=== PATIENT | female | born 1950 | race Caucasian/White ===

== ENCOUNTER 2016-05-15 08:50 | Inpatient (IN) | payer MEDICARE, MEDICAID ==
[2016-05-15] VITALS (7 sets, daily range): BP systolic 92–167; BP diastolic 48–74; PULSE 71–88; RESP 16–22; O2SAT 93–97
[~2016-05-15] VITALS: Ht 157.5 cm; Wt 85.8 kg
[~2016-05-15 08:50] MED LIST: ALBU8.5H2 INHALATION; AMOX-366 PO; ASPI-1148 PO; ASPI-973 PO; AZEL137S11 NASAL; BISA-67 PO; CRAN1TAB5 PO; DULO30CA50 PO; ESTR42.52 VAGINAL; FLUT16SP NS; HYDR-3740 PO; IPRA30SP8 NASAL; IPRA3AMP IH; KLO1T PO; L.AC1CAP6 PO; LIDO5JEL4 TOPICAL; LOPE2CAP PO; MOME13HF INHALATION; MONT10TA20 PO; NYST1POW23 TOP; OMEP40CA36 PO; ONDA4TAB12 PO; PHEN-773 PO; POLY17PO6 PO; POTA20TA16 PO; PREG50CA PO; SUMA100T2 PO; VANC125C3 PO
--- NOTE | 2016-05-15 09:09 | ED.REPORT ---
HPI-General Illness Date of Service May 15, 2016 ED Provider: Nicole Milian MD A 65 year old female presents to the ED complaining of abdominal pain. She has been sick for about a week, symptoms including abdominal pain, diarrhea, and vomiting. She reports that her blood pressure has been in the 160's recently, ever since she became ill.She reports that current symptoms do not feel like past C DIFF, describing that with C DIFF her diarrhea was watery and came without warning. She describes that current diarrhea has excrement and comes with warning. Nursing Notes Stated Complaint: LOW BLOOD PRESSURE Chief Complaint: General Complaint Nursing Notes Reviewed: Yes Allergies: Coded Allergies: Sulfa (Sulfonamide Antibiotics) (Verified Allergy, Severe, Stop breathing , 12/25/15) ciprofloxacin (Verified Allergy, Severe, hives, 12/25/15) Pentazocine Lactate (Verified Allergy, Intermediate, 12/25/15) morphine (Verified Allergy, Intermediate, Shortness of Breath, 12/25/15) Meraux Nut (Verified Allergy, Unknown, 12/25/15) NSAIDS (Non-Steroidal Anti-Inflamma (Verified Allergy, Unknown, GI BLEED, 12/25/15) Phenothiazines (Verified Allergy, Unknown, 12/25/15) prochlorperazine (Verified Allergy, Unknown, diarrhea, 12/25/15) propoxyphene (Verified Allergy, Unknown, 12/25/15) tree nut (Verified Allergy, Unknown, 12/25/15) Scheduled Aspirin (Aspirin) 81 Mg Tablet 81 MG PO DAILY Azelastine HCl (Azelastine HCl) 137 Mcg/0.137 Ml [place].pump 2 SPRAY NASAL BID Cetirizine HCl (Zyrtec) 10 Mg Capsule 10 MG PO BID Cranberry Conc/C/Bacill Coag (Cranberry Tablet) 1 Each Tablet 2 EACH PO QID Duloxetine (Duloxetine) 30 Mg Capsule.dr 30 MG PO DAILY Estradiol (Estrace) 42.5 Gm Cream.appl 1 APPLIC VAGINAL Q2DAY Fluticasone Propionate (Fluticasone Propionate Nasal) 16 Gm [place].susp 1 SPRAY NS HS Fosfomycin Tromethamine (Monurol) 3 Gm Packet 3 GM PO S1IDHIR Lactobacillus Combination No.4 (Probiotic) 1 Each Capsule 2 EACH PO BID Lisinopril (Lisinopril) 10 Mg Tablet 10 MG PO DAILY Metoprolol Tartrate (Metoprolol Tartrate) 25 Mg Tablet 12.5 MG PO BID Mometasone/Formoterol (Dulera 200 Mcg/5 Mcg Inhaler) 13 Gm Hfa.aer.ad 2 PUFF INHALATION BID Montelukast (Singulair) 10 Mg Tablet 10 MG PO HS Pantoprazole DR (Pantoprazole DR) 40 Mg Tablet.dr 40 MG PO BID Potassium Chloride (Potassium Chloride) 20 Meq Tab.er.prt 20 MEQ PO DAILY TAKE WITH FOOD Pregabalin (Lyrica) 50 Mg Capsule 50 MG PO BID Scheduled PRN Albuterol HFA (Proair HFA) 8.5 Gm Hfa.aer.ad 2 PUFFS INHALATION Q4H PRN PRN For Shortness of Breath Diclofenac Gel (Voltaren Gel) 100 Gm Tube 1 GM TOPICAL QID PRN PRN For Pain Ipratropium [place] (Ipratropium [place] 0.03% Nasal) 30 Ml [place] 2 SPRAY NASAL TID PRN PRN For Congestion Ipratropium/Albuterol Sulfate (Iprat-Albut 0.5-3(2.5) mg/3 mL Inhalant Soln) 3 Ml Ampul.neb 3 ML IH Q6 PRN PRN For Shortness of Breath Lidocaine HCl (Lidocaine HCl) 5 Ml Jel 1 APPLIC TOPICAL DAILY PRN PRN For Pain apply to feet Loperamide (Loperamide) 2 Mg Capsule 2 MG PO Q4H PRN PRN For Diarrhea or Loose Stool Methocarbamol (Methocarbamol) 500 Mg Tablet 1-2 EACH PO BID PRN PRN For Spasm Nystatin (Nystatin) 1 Each Powder.ea. 1 APPLIC TOP BID PRN PRN For Itching Ondansetron ODT (Ondansetron ODT) 4 Mg Tab.rapdis 8 MG PO QID PRN PRN For Nausea Sumatriptan Succinate (Sumatriptan Succinate) 100 Mg Tablet 100 MG PO BID PRN PRN Headache oxyCODONE-Acetaminophen 10-325 mg (oxyCODONE-Acetaminophen 10-325 mg) 1 Each Tablet 1 EACH PO Q4H PRN PRN For Pain General Time Seen by MD: 09:09 Chief Complaint Abdominal pain Hx Obtained From: Patient Sudden in Onset?: No Onset Occurred: 1 week ago Symptom Duration: Since onset Severity: Current: Severe Severity: Maximum: Severe Recent Healthcare: Recent doctor visit Similar Sx Previous: No Past Medical History Past Medical History Notes: Echo results from Dec 19, 2015 Interpretation Summary The left ventricle is normal in size. Left ventricular systolic function is normal without focal wall motion abnormalities. The ejection fraction is estimated to be 60-65%. LVEF has not changed since prior study. Assessment of diastolic parameters suggests possible LV grade II diastolic dysfunction, consistent with elevated filling pressures. The right ventricle is normal in size, thickness and function. Pulmonary artery pressures cannot be estimated because of the lack of a measurable TR jet velocity. Both atria are normal in size. There is moderate aortic regurgitation. There is no holodiastolic flow reversal in the descending thoracic aorta. AR has not changed since prior study. There is no other significant valvular heart disease. The aortic root is normal size. Past Medical History Hx of frequent UTIs - on chronic prophylactic abx Firbromyalgia Migraines GERD IBS Insomnia Depression ho recurrent syncope - w/extensive workup ho C Diff December,. Irritable bowel syndrome. Most recent admission was December 2015. Denies Hx of heart murmur. Takes oxycodone, 2-6 of 10mg per day for pain management. Last dose was last night. Patient is allergic to Cipro and Sulfa. Reports: COPD Past Surgical History Reports: Appendectomy, Cholecystectomy, Hysterectomy Family History noncontributory Smoking History Former Smoker Social History Other Social History: Good social support, Local resident Ambulatory Status Independent Review of Systems Full Review of Systems GI: Reports: Abdominal pain, Diarrhea, Vomiting Complete sys rev & neg: except as marked. Physical Exam ENTIRE LOWER AB IS TENDER, SUIG NTENG IN lUq. no rebound or guarding. Skn is well perfused. Vital Signs Vital Signs Date Time Temp Pulse Resp B/P Pulse Ox O2 Delivery O2 Flow Rate FiO2 05/15/16 14:30 36.7 88 18 115/74 97 Room Air 05/15/16 13:01 36.8 88 18 105/73 97 Room Air 05/15/16 09:00 36.2 72 16 92/48 94 Room Air Initial VS: Reviewed Extremities: No swelling Skin: Warm (Skin is well perfused. ), Dry, No cyanosis Neurologic: Alert, Oriented, Nonfocal General/Constitutional: Awake, Alert Patient is acutely ill, generally does not appear like she feels good. She appears dehydrated. Head / Eyes: Atraumatic Eyes are injected, red. Heart Sounds / Murmur: Positive: Murmur present... (2/6 systolic ejection murmur present. ) Abdomen: No guarding, No rebound Tenderness/Guarding/Rebound: Positive: Tender LUQ... Bowel Sounds / Distention: Positive: Distention moderate Patient's entire lower abdomen is tender, signifigantly tender in LUQ. No rebound or guarding. Interpretation & Diagnostics Interpretation & Diagnostics: PROCEDURE: US RENAL SONOGRAM IMPRESSION: 1. Bilateral renal cortical thinning. Dictated by: Cameron Reyes RRA Interpreted: Saima Smyth MD on 05/15/2016 at 16:27 Transcribed by: AUDREY on 05/15/2016 at 16:28 Approved by: Saima Smyth MD, PhD on 05/15/2016 at 16:40 Lab Results Interpretation Result Diagram: 05/16/16 0305 05/16/16 0305 Test 05/15/16 09:25 05/15/16 11:01 Erythrocyte Sedimentation Rate 16mm/hr (0-40) Lactic Acid Level 1.8mmol/L (0.4-2.0) Total Bilirubin 0.3mg/dL (0.0-1.2) Aspartate Amino Transf (AST/SGOT) 14U/L (0-50) Alanine Aminotransferase (ALT/SGPT) 17U/L (0-32) Alkaline Phosphatase 60U/L (25-165) Troponin T < 0.010ug/L (0.0-0.011) Pro-B-Type Natriuretic Peptide 125.5pg/mL (0-287) Total Protein 7.4g/dL (6.4-8.4) Albumin 3.9g/dL (3.4-5.0) Procalcitonin 0.17ng/mL (0.00-0.08) Urine Color Yellow (YELLOW) Urine Appearance Hazy (CLEAR,HAZY) Urine pH 5.0 (5.0-8.0) Urine Specific [place] 1.025 (1.003-1.035) Urine Protein Negativemg/dL (NEG,TRACE) Urine Glucose (UA) Negativemg/dL (NEGATIVE) Urine Ketones Tracemg/dL (NEGATIVE) Urine Occult Blood Negative (NEGATIVE) Urine Nitrite Negative (NEGATIVE) Urine Bilirubin Negative (NEGATIVE) Urine Urobilinogen Normalmg/dL (NORMAL) Urine Leukocyte Esterase Small (NEGATIVE) Urine RBC 0-2/hpf (0-2) Urine WBC 11-50/hpf (0-5) Urine Epithelial Cells Occasional/hpf (NONE-MOD) Urine Crystals None seen (NONE SEEN) Urine Bacteria Many/hpf (NONE-FEW) Urine Hyaline Casts Occasional/lpf (NONE) Urine Granular Casts None seen (NONE SEEN) Urine Waxy Casts None seen (NONE SEEN) Urine Red Blood Cell Casts None seen (NONE SEEN) Urine White Blood Cell Casts None seen (NONE SEEN) Urine Mucus Present (None Seen) Urine Trichomonas None seen (NONE SEEN) Urine Yeast None (NONE SEEN) Urinalysis Comment None Urine Culture Reflexed Indicated Urine Legionella pneumophilia Ag Negative (Negative) ECG Interpretation Time: 09:39 Interpreted by: ED physician Normal ECG Interpretation: Normal rate, Normal sinus rhythm, No acute ischemic changes, Normal QRS, Normal axis, Normal intervals, No change from prior ECGs, Adequate tracing X-Ray Chest Interpretation Chest Xray Interpretation: IMPRESSION: Right upper and lower lobe infiltrates suspicious for pneumonia. Recommend followup to resolution. Dictated by: Alonso Durán M.D. on 05/15/2016 at 10:42 Approved by: Alonso Durán M.D. on 05/15/2016 at 10:43 Interpretation / Wet Read by: Interpret - Radiologist CT Abd / Pelvis Interpretation IMPRESSION: 1. No CT findings to suggest pseudomembranous (C. difficile) colitis. 2. Diverticulosis. No active diverticulitis. 3. Small hiatal hernia. 4. A duodenal diverticulum. 5. Right lower lobe pneumonia. Dictated by: Alonso Durán M.D. on 05/15/2016 at 12:39 Re-Eval/Medical Decision Med Decision/Clinical Course presents with symptoms initially concerning for sepsis. Fluids started. With abd pain and recent c. diff, concern was for pseudomembranous colitis so abx were NOT started until futher clinical data was available. Once imaging studies returned to suggest a pneumonia as a source of infection consult with Dr. Johnson was obtained. Clinically she is not having any cough and no signs to suggest a pulmonary source. His recommendation for the spectrum antibiotic that would be appropriate for pneumonia and the the least risk of Clostridium difficile recurrence. Tygacil and was started in the emergency Source of Hx: Old records Time of Eval: 09:21 Re-Evaluation/Progress Note: Rechecked patient. Time of Eval: 10:43 Re-Evaluation/Progress Note: Rechecked patient, explained test results, diagnosis. Explained concern for C DIFF return and concern for infection of colon lining. Explained plan not to administer antibiotics and need for admission to hospital. Patient understands and agrees with the plan. Time of Eval: 13:22 Re-Evaluation/Progress Note: Rechecked patient, explained XRay and CT test results and explained diagnosis of right side pneumonia. Explained that the patient does not have Pseudomembranous colitis. Explained that I would still like a stool sample. The patient reports that they have not eaten since yesterday and would like to eat. Consultation #1: Referral / Consult Name: Donal Johnson MD Call Returned at: 13:34 Transit Planning Director: Agrees with eval, Agrees with plan Note: Discussed patient case with Dr. Johnson who reports that he has been treating the patient with phosphomycin for her UTI treatment. Dr. Johnson reccomends that the patient start tigecycline. Dr. Johnson will officially consult. Consultation #2: Referral / Consult Name: Donal Humphries DO Call Returned at: 13:49 Transit Planning Director: Will see patient, Agrees with eval, Agrees with plan Note: Discussed patient case with Dr. Humphries who agrees to consult on the patient. Consultation #3: Referral / Consult Name: Sarath Welsh MD Call Returned at: 14:23 Transit Planning Director: Agrees with eval, Agrees with plan, Accepts admit Note: Discussed patient case with Dr. Welsh who accepts patient admit. Counseled Regarding: Diagnosis, Lab results, Need for admission Discharge & Departure Primary Impression: Acute renal failure Additional Impressions: Right lower lobe pneumonia Abdominal pain UTI (urinary tract infection) Ruled Out: Severe sepsis Disposition: ADMITTED TO HOSPITAL Discharge Condition All VS Reviewed: Yes Condition: Improved Referrals: Arturo Bullock MD (PCP) Jeffrey Attestation Portions of this note were transcribed by Jacobo Ross. I, Dr. Milian personally performed the history, physical exam and medical decision-making; I reviewed and confirmed the accuracy of the information in the transcribed note. Signed by: Jeffrey Reddy, 05/15/2016 1325. copies to: Arturo Bullock MD; Donal Johnson MD, Shawna L MD May 15, 2016 09:09 Jacobo Ross May 15, 2016 09:12 5. Right lower lobe pneumonia. Dictated by: Alonso Durán M.D. on 05/15/2016 at 12:39 Re-Eval/Medical Decision Source of Hx: Old records Time of Eval: 09:21 Re-Evaluation/Progress Note: Rechecked patient. Time of Eval: 10:43 Re-Evaluation/Progress Note: Rechecked patient, explained test results, diagnosis. Explained concern for C DIFF return and concern for infection of colon lining. Explained plan not to administer antibiotics and need for admission to hospital. Patient understands and agrees with the plan. Time of Eval: 13:22 Re-Evaluation/Progress Note: Rechecked patient, explained XRay and CT test results and explained diagnosis of right side pneumonia. Explained that the patient does not have Pseudomembranous colitis. Explained that I would still like a stool sample. The patient reports that they have not eaten since yesterday and would like to eat. Consultation #1: Referral / Consult Name: Donal Johnson MD Call Returned at: 13:34 Transit Planning Director: Agrees with eval, Agrees with plan Note: Discussed patient case with Dr. Johnson who reports that he has been treating the patient with phosphomycin for her UTI treatment. Dr. Johnson reccomends that the patient start tigecycline. Dr. Johnson will officially consult. Consultation #2: Referral / Consult Name: Donal Humphries DO Call Returned at: 13:49 Transit Planning Director: Will see patient, Agrees with eval, Agrees with plan Note: Discussed patient case with Dr. Humphries who agrees to consult on the patient. Consultation #3: Referral / Consult Name: Sarath Welsh MD Call Returned at: 14:23 Transit Planning Director: Agrees with eval, Agrees with plan, Accepts admit Note: Discussed patient case with Dr. Welsh who accepts patient admit. Counseled Regarding: Diagnosis, Lab results, Need for admission Discharge & Departure Primary Impression: Acute renal failure Additional Impressions: Right lower lobe pneumonia Abdominal pain UTI (urinary tract infection) Ruled Out: Severe sepsis Disposition: ADMITTED TO HOSPITAL Discharge Condition All VS Reviewed: Yes Condition: Improved Referrals: Arturo Bullock MD (PCP) Jeffrey Attestation Portions of this note were transcribed by Jacobo Ross. I, Dr. Milian personally performed the history, physical exam and medical decision-making; I reviewed and confirmed the accuracy of the information in the transcribed note. Signed by: Jeffrey Reddy, 05/15/2016 1325. copies to: Arturo Bullock MD; Donal Johnson MD, Shawna L MD May 15, 2016 09:09 Jacobo Ross May 15, 2016 09:12
[2016-05-15] MEDS ORDERED: 0.9% Sodium Chloride 1,000 ML IV ONE ×2 (09:27→10:45)
[2016-05-15 09:37] LABS: BASOPHILS % (AUTO) 0.5 % (0-3); MONOCYTES % (AUTO) 7.3 % (4-12); Mean Corpuscular Hemoglobin 28.7 pg (27.0-35.0); Platelet Count 346 bil/L (150-400)
[2016-05-15 10:23] LABS: TROPONIN T < 0.010 ug/L (0.0-0.011)
--- NOTE | 2016-05-15 10:44 | DRSVH ---
PROCEDURE: X-RAY CHEST ONE VIEW, PORTABLE ([id number]) INDICATIONS: fatigue, weakness TECHNIQUE: One view of the chest was acquired. COMPARISON: [facility], CT, CT CHEST W CONTRAST, 10/24/2015, 1:03 PM. Located Within [facility] spital, CR, XR CHEST 1VW (PORTABLE), 08/07/2015, 14:19. FINDINGS: Surgical changes and devices: None. Lungs and pleura: Right upper and lower lobe infiltrate suspicious for pneumonia. No pleural effusio ns or pneumothorax. Mediastinum: Mediastinal contours appear normal. Heart size is normal. Bones and chest wall: No suspicious bony lesions. Overlying soft tissues appear unremarkable. IMPRESSION: Right upper and lower lobe infiltrates suspicious for pneumonia. Recommend followup to re solution. Dictated by: Alonso Durán M.D. on 05/15/2016 at 10:42 Approved by: Alonso Durán M.D. on 05/15/2016 at 10:43
[2016-05-15] MEDS ORDERED: HYDROmorphone 1 mg/mL Inj IVPUSH PRN (11:05)
[2016-05-15] MEDS ORDERED: HYDROmorphone 1 mg/mL Inj IVPUSH ONE (11:05)
[2016-05-15] MEDS ORDERED: Iohexol 300 mg/mL 30 mL Inj PO ONE (11:05)
[2016-05-15 11:14] LABS: APPEARANCE,URINE HAZY (CLEAR,HAZY); COLOR,URINE YELLOW (YELLOW); OCCULT BLOOD,URINE NEGATIVE (NEGATIVE)
[2016-05-15 11:18] LABS: UROBILINOGEN,URINE NORMAL (NORMAL)
[2016-05-15] MEDS ORDERED: Ondansetron 2 mg/mL 2 mL Inj IVPUSH ONE (11:25)
[2016-05-15] MEDS: Ondansetron 2 mg/mL 2 mL Inj IVPUSH PRN (11:36)
--- NOTE | 2016-05-15 12:45 | DRSVH ---
PROCEDURE: CT ABDOMEN AND PELVIS WITHOUT CONTRAST ([id number]) INDICATIONS: abdominal pain. ? c diff colitis TECHNIQUE: After the administration of oral contrast, 5 mm thick sections acquired from the diaphragms to the sy mphysis. 5 mm coronal and sagittal reformats were performed. For radiation dose reduction, the foll owing was used: automated exposure control, adjustment of mA and/or kV according to patient size. COMPARISON: [facility], CR, XR CHEST 1VW (PORTABLE), 05/15/2016, 10:19. [facility] spital, CT, CT ABD PELVIS W CON, 12/25/2015, 18:41. FINDINGS: Image quality: Excellent. ABDOMEN: Lung bases: Patchy infiltrate in the lung base suspicious for pneumonia. Heart size is normal. Smal l hiatal hernia noted. Solid organs: Liver and spleen are normal in size. Gallbladder is surgically absent. Pancreas is n ormal in size. No adrenal nodules. Both kidneys are normal in size, without hydronephrosis or nephr olithiasis. Peritoneum and bowel: There is a duodenal diverticulum arising from the posterior wall of the [place] portion of the duodenum. There are scattered colonic diverticula. Bowel loops demonstrate normal wall thickness and caliber. No free fluid or air. Nodes and vessels: No retroperitoneal or mesenteric adenopathy by size criteria. Aorta and inferior vena cava are normal in size. Miscellaneous: No ventral hernias. PELVIS: Genitourinary: Bladder wall thickness is normal. Miscellaneous: No inguinal hernias or adenopathy. Bones: No suspicious bony lesions. No vertebral body compression fractures. IMPRESSION: 1. No CT findings to suggest pseudomembranous (C. difficile) colitis. 2. Diverticulosis. No active diverticulitis. 3. Small hiatal hernia. 4. A duodenal diverticulum. 5. Right lower lobe pneumonia. Dictated by: Alonso Durán M.D. on 05/15/2016 at 12:39 Approved by: Alonso Durán M.D. on 05/15/2016 at 12:44
[2016-05-15] MEDS ORDERED: Tigecycline Inj 100 MG in 0.9% Sodium Chloride 100 ML IV ONE (13:35)
[2016-05-15] MEDS ORDERED: LISI10TA PO (13:58)
[2016-05-15] MEDS ORDERED: DICL100G8 TOPICAL (13:58)
[2016-05-15] MEDS ORDERED: OXYC-466 PO (14:03)
[2016-05-15] MEDS ORDERED: ROB500 PO (14:03)
[2016-05-15] MEDS ORDERED: FOSF3PAC PO (14:03)
[2016-05-15] MEDS ORDERED: METO25TA6 PO (14:03)
[2016-05-15] MEDS ORDERED: PANT40TA3 PO (14:05)
[2016-05-15] MEDS ORDERED: CETI10CA PO (14:09)
[2016-05-15] MEDS ORDERED: LACT1CAP67 PO (14:09)
[2016-05-15] MEDS ORDERED: Polyethylene Glycol (PEG) 17 Gm Powder PO PRN (14:40)
[2016-05-15] MEDS ORDERED: Alum-Mag Hydrox-Simeth 30 mL Suspension PO PRN (14:40)
--- NOTE | 2016-05-15 15:48 | CONS ---
[address] [address] CONSULTATION REPORT PATIENT: WILY SOLANO : 1950 MR#: [id number] ADMIT: 05/15/2016 JOB ID: [id number] DATE OF SERVICE: 05/15/2016 RENAL CONSULTATION: ATTENDING PHYSICIAN: Dr. Arturo Bullock HISTORY: The patient is a very pleasant 65-year-old white female, who was admitted to [facility] for hypotension, dehydration, and acute kidney injury. Renal consultation is being sought for further evaluation of her acute kidney injury. She states that she has had two bouts of C. difficile colitis in the past. For approximately the last five days prior to admission, she has been having progressive upper respiratory tract symptoms of nasal congestion, sore throat, otalgia, mild cough, and exacerbation of her underlying asthma. She states she has had increased wheezing, shortness of breath with minimal exertion, but no orthopnea. She states that she has used her inhaler with increasing regularity for symptomatic relief. While she denies any rash, she does state that she has diffuse arthralgias which have worsened in the last several days, new facial rash, and generalized pruritus. She does not admit to a rash in any other part of her body. She also states that she has had severe nausea, vomiting, and diarrhea which has worsened over the last several days. She states that in light of her history of recurrent C. difficile colitis this does not feel like her C. difficile colitis. She also states that she has a low-grade fever and some lightheadedness. She was seen by a physician earlier today and was found to be severely hypotensive and was advised to come to the emergency department. In the emergency department, her blood pressure was in the low 80s. However, did respond to several liters of IV fluid. Her creatinine was also found to be markedly elevated at 2.85 mg/dL. Her baseline creatinine from last December was 0.87. She denies a history of any prior renal problems. There is a history of fibromyalgia and she says that for some vague amount of time she had been taking nonsteroidals on a frequent basis but has not had any since that time. She also states she has a history of recurrent urinary tract infections and has been on multiple antibiotics for this in the past. She states that she has chronic urgency and hesitancy. She denies any CVA tenderness or recent hematuria. She does have a past medical history of hematuria and questionable proteinuria. There is no history of any renolithiasis. She also denies any history of rheumatoid arthritis, lupus or hepatitis. PAST MEDICAL HISTORY: Is significant for: 1. Recurrent urinary tract infections. 2. C. difficile colitis. 3. Hypertension, a recent diagnosis for which she takes lisinopril and metoprolol. 4. There is also a history of pre diabetes. However, she states that this is diet controlled. 5. There is also a history of asthma. 6. Hyperlipidemia. 7. At this time, she is also being worked up for a thyroid nodule. 8. Otherwise she denies a history of any prior stroke, seizure, tuberculosis, myocardial infarction, congestive heart failure, or cancer. PAST SURGICAL HISTORY: Is significant for: 1. Hysterectomy. 2. Appendectomy. 3. Tonsillectomy. 4. Cholecystectomy. ALLERGIES: She is allergic to SULFA, CIPROFLOXACIN, PENTAZOCINE, MORPHINE, NONSTEROIDALS, PHENOTHIAZINES, PROCHLORPERAZINE, PROPOXYPHENE and a variety of NUTS. SOCIAL HISTORY: She denies current use of alcohol, tobacco or illicit drugs and there is a remote history of tobacco use. She is quite sedentary and with minimal ambulation. CURRENT MEDICATIONS: At time of admission include albuterol, diclofenac gel, ipratropium, albuterol inhaler, loperamide, methocarbamol, nystatin, sumatriptan and oxycodone. FAMILY HISTORY: Noncontributory. REVIEW OF SYSTEMS: As detailed above. PHYSICAL EXAMINATION: Revealed an obese 65-year-old white female, who was alert and oriented x3, in no distress at the time of my evaluation. Her blood pressure is 105/73 with a pulse rate of 88. HEENT examination is remarkable for pale sclerae. Her mucous membranes also were dry. Of note, on her face, is a diffuse erythematous malar type rash. Neck is supple without adenopathy, thyromegaly or jugular venous distention. Lungs are clear to auscultation. Heart was regular and rhythmical with a soft systolic murmur. Her heart sounds were distant. Abdomen is somewhat distended with diminished bowel sounds. There is no tenderness, rebound, guarding, masses or hepatosplenomegaly. Extremities do not show any evidence of any clubbing, cyanosis or edema. Skin turgor is diminished and there is no evidence of any rashes. LABORATORY EXAMINATION: This morning, her white count is 15.6, hemoglobin was 14.0, hematocrit 43.9. Platelet count, red cell indices and differential were normal. Her sodium is 134, potassium 4.0, chloride 97, bicarbonate 19. BUN and creatinine were 58 and 2.85 respectively. Her liver function studies otherwise were normal. Urinalysis showed a specific gravity of 1.025, pH was 5. Tests for ketones were slightly positive. Otherwise tests for protein, glucose and occult blood were negative. She had 15-20 WBCs per high-power field with a few scattered epithelial cells. IMPRESSION: 1. Acute kidney injury secondary to dehydration. In light of her history of antibiotic use, we do need to consider a drug induced acute kidney injury; namely, acute interstitial nephritis versus a lupus reaction. 2. Dehydration. 3. Chronic interstitial nephritis secondary to recurrent urinary tract infections. 4. Hypertension with hypertensive heart disease and hypertensive nephrosclerosis. RECOMMENDATION: 1. I would like to continue her cautious hydration with normal saline for now, following her vital signs and laboratory parameters. 2. I would like to obtain an anti-histone antibody along with a full SUZIE panel. I would also like to get a urine for eosinophils. Once again, I would like to thank you for allowing me to participate in the care of this most pleasant and interesting patient. I will be following her closely with you.
--- NOTE | 2016-05-15 16:30 | NUR ---
Transfer/Isolation Pt. was transferred from the ER to [facility]. Pt. has her own walker with her that she uses when she feels weakness at times. Pt. is RA and denies CP, SOB but c/o of stomach pain that goes down her midline abdomen and radiates towards her lower right quadrant. Pt. is on contact precaution until rule out CDiff. Pt. is on tele SR 70.
--- NOTE | 2016-05-15 16:41 | DRSVH ---
PROCEDURE: US RENAL SONOGRAM INDICATIONS: linda TECHNIQUE: Real-time scanning was performed of the kidneys and bladder, with image documentation. COMPARISON: None. FINDINGS: Kidneys: Kidneys are normal in size. Right kidney measures 9.7 cm long; left kidney measures 10.1 c m long. Right renal cortical thickness is 0.7 cm; left renal cortical thickness is 1.0 cm. Renal co rtical echotexture is normal. No hydronephrosis or nephrolithiasis. No suspicious solid mass lesion s. Bladder: Pre-void bladder volume is 116 mL. Post-void residual is 0 mL. Pre-void images demonstrat e no intraluminal masses or stones. On pre-void images, neither ureteral jets are noted with color D oppler interrogation. (Of note, ureteral jets may not be detectable in up to 25% of cases due to ins ufficient differences in specific gravity between ureteral and bladder urine). Miscellaneous: No free pelvic fluid. IMPRESSION: 1. Bilateral renal cortical thinning. Dictated by: Cameron Reyes [facility] Interpreted: Saima Smyth MD on 05/15/2016 at 16:27 Transcribed by: AUDREY on 05/15/2016 at 16:28 Approved by: Saima Smyth MD, PhD on 05/15/2016 at 16:40
[2016-05-15] MEDS: HYDROmorphone 1 mg/mL Inj IVPUSH PRN (17:29)
[2016-05-15] MEDS: Heparin 5,000 Unit/mL Inj SUBQ SCH (17:29)
--- NOTE | 2016-05-15 17:42 | CONS ---
[address] [address] CONSULTATION REPORT PATIENT: WILY SOLANO : 1950 MR#: [id number] ADMIT: 05/15/2016 JOB ID: [id number] DATE OF SERVICE: 05/15/2016 REASON FOR FOLLOWUP: Diarrhea with abdominal pain x4 days. HISTORY OF THE PRESENT ILLNESS: The patient is a 65-year-old woman well known to me from prior in an outpatient visit. She has a longstanding history of recurrent UTIs as well as C. diff and has been on chronic fosfomycin prophylaxis to prevent her recurrent UTIs without increasing too much the risk for recurrent C. diff. She was in her usual state of health, free of fevers or chills or dysuria until about four or five days ago when she developed the fairly abrupt onset of nausea, vomiting, diffuse abdominal pain, and malaise. This has been associated with some noted increase in her blood pressure at home. Today, she was seeing Dr. Cade of [facility] for regularly scheduled visit for followup of her irritable bowel syndrome, and she was noted to have a somewhat low blood pressure which caused her to be sent to the ER for some fluids and evaluation. There, she was found to have a markedly elevated creatinine, and x-rays, CTs, and lab suggested the possibility of pneumonia, UTI, or recurrent severe diarrhea. Because of this, she was admitted and I was consulted by Dr. Nicole Milian from the emergency room. The patient tells me that until 4-5 days ago, she was in her usual state of health and not having any diarrhea, nausea, vomiting, dysuria, or cough. She still has really no pulmonary symptoms. She notes she gets a little short of breath with exertion, but she has no productive cough, pleuritic chest pain, or substernal chest pain. She also specifically denies dysuria, urgency, or frequency at any time in the past week and basically states that her symptoms are almost entirely GI with the nausea, vomiting, diarrhea, and abdominal pain. She notes her diarrhea is thicker and less urgent than when she has previously had C. diff, and she thinks she may have some other kind of diarrhea. She notes that one neighbor and some friends who she has been in contact with have had diarrheal or GI illnesses within the past couple weeks. PAST MEDICAL HISTORY: 1. GERD. 2. C. diff x2 in 2016. 3. Recurrent UTIs, on fosfomycin prophylaxis. 4. Irritable bowel syndrome. 5. Status post bladder sling procedure. 6. Diabetes with neuropathy. 7. COPD. 8. Fibromyalgia requiring at times opiate pain meds. ALLERGIES: 1. BACTRIM. 2. SEPTRA. SOCIAL HISTORY: The patient quit smoking in the distant past. She does not drink any significant alcohol and does not inject drugs. She lives with her daughter, , and mother in the local area and has not traveled recently. FAMILY HISTORY: Negative for TB in her first and second-degree relatives. REVIEW OF SYSTEMS: Review of systems was done. The patient has no headache, no visual complaints. No sores in the mouth. No sore throat. No stiff neck. No swollen lymph nodes. She does state she has a bit of shortness of breath with exertion which might be a little worse than normal but no shortness of breath at rest. No chest pain. No significant cough. She has had nausea, vomiting, diarrhea, and abdominal pain for the past 4-5 days. No dysuria, urgency, or frequency. No significant swelling of the joints. Remainder of the review of systems is negative. PHYSICAL EXAMINATION: Reveals an afebrile woman. Temp 36.7, pulse 88, respiratory rate 18, blood pressure 115/74. She is saturating well on room air. I saw her initially in the ER, and then she got whisked away to the [facility], and I continued the evaluation there. In both locations, she looks quite comfortable, and about like she does normally except for perhaps some mild facial erythema bilaterally. She is awake, alert, lucid, and able to give a good history. Certainly in no respiratory distress. As mentioned, she might have some flushing of the cheeks bilaterally, but otherwise her head and face appear normal. Eyes without conjunctivitis. Oral cavity without thrush or hairy leukoplakia. Neck completely supple without adenopathy. Lungs quite clear posteriorly. Cardiac tones: Regular rate and rhythm without significant murmur. Abdomen has good bowel tones but is diffusely tender in all areas without peritoneal signs per se but a fair amount of tenderness in all four quadrants. There is no suprapubic fullness. No flank tenderness is present. Extremities without significant new edema. No evidence of synovitis. No skin rashes noted. The patient is neurologically intact and able to walk and perform activities of daily living. LABORATORY STUDIES: Include white count 15.6. Normal diff, interestingly. Platelet count 346,000. Creatinine 2.85 which is dramatically above her baseline which is more like 1 basically, so 2.85 denotes a significant renal injury. Her BUN is 58, which suggests there is some dehydration component. Lactic acid 1.8. LFTs normal. Albumin 3.9. Procalcitonin 0.17. Urinalysis 11-50 white cells. Micro studies include urine pending from this admission. Blood cultures pending from this admission. Her last stool back in December was positive for C. diff. A stool multiplex PCR assay has been ordered but has not yet been collected. IMAGING: Includes a chest x-ray done today which is read as questionable right upper and lower lobe infiltrates. These are fairly subtle. In addition, the patient had a CT of the abdomen and pelvis which showed no evidence for colitis, no evidence for diverticulitis, and a fairly subtle right lower lobe infiltrate. IMPRESSION: This is a 65-year-old woman well known to me with prior history of urinary tract infections which we are attempting to suppress with fosfomycin twice a month. She also has history of underlying chronic obstructive pulmonary disease, as well as irritable bowel syndrome and Clostridium difficile twice last year. She now presents with 4-5 days of abdominal pain, nausea, vomiting, and diarrhea which began fairly abruptly. I think the differential diagnosis here involves recurrent Clostridium difficile versus infection with some other typical gastrointestinal pathogen, and certainly given her white count, we cannot exclude Salmonella, Shigella, and Yersinia as bacterial causes, but more likely probably is a viral process such as a Norovirus causing her diarrhea. The diarrhea seems to have resulted in up hypovolemia and injury to the kidneys which I suspect will rapidly reverse. Escherichia coli 157 or similar Shigella toxin producing Escherichia coli would seem unlikely here based on the overall clinical picture as well as a CBC, though remains in the range of possibility. Despite the x-ray and CT impressions, I really do not think the patient has pneumonia. She has no cough whatsoever and her lungs are clear posteriorly. I also do not think she has a urinary tract infection, even though she has moderate pyuria, as she has no symptoms whatsoever. RECOMMENDATIONS: 1. I would continue with tigecycline 50 mg every 12 until this situation is clarified. Note that we started on Tygacil in the ER because it is one agent which could provide coverage for a complicated UTI, pneumonia as was suspected on the chest x-ray, or even perhaps a complicated abdominal infection. 2. Stool for PCR should be obtained as soon as possible, as I think this is likely to provide an answer. 3. I would withhold any other broad-spectrum antibiotics at this point for fear of precipitating or worsening C. diff. 4. Will continue to follow this patient with you in the coming days. 5. Will continue to follow this patient with you. 6. Urine Legionella and pneumococcal antigen should be added to her lab studies. 7. If stool pos for C diff treat with po vanco 125 qid MTDD
[2016-05-15] MEDS: 0.9% Sodium Chloride 1,000 ML IV SCH (18:10)
--- NOTE | 2016-05-15 18:27 | PCM.HPMED ---
Subjective Date of Service May 15, 2016 Primary Provider: Admitting Physician: Primary Care Physician: Arturo Bullock MD Attending Physician: Admit Status: From the Emergency Department, Full Admit, [facility] Telemetry Chief Complaint: Acute abdominal pain History of Present Illness: Graciela Ibarra is a 65 year old female with Diabetes, Hypertension, Hyperlipidemia, recurrent UTI with recent bout of C difficile colitis who presents to [facility] emergency department complaining of abdominal pain. Located in epigastrium (7/10 intensity) with some radiation to the chest. Took Protonix but not effective in controlling pain. Associated symptoms includes nausea and vomiting inability to hold any food down. Also having persistent diarrhea. She has been sick for about a week. She reports that current symptoms do not feel like past c difficile infections, describing that with her last diarrhea was watery and came without warning. Current episode is not as severe. She was evaluated at the GI clinic and noted to have hypotension and was referred to the Emergency department. She has recurrent exposure to antibiotics due to recurrent urinary tract infections. She is well known to Dr Johnson Case discussed with Dr Nice, CT ruled out pseudomembranous colitis. She spoke to Dr Johnson who recommended admission for fluids and Tygacil IV antibiotics Review of Systems: Pertinent positives as noted in HPI. All other systems were reviewed and are negative Allergies Coded Allergies: Sulfa (Sulfonamide Antibiotics) (Verified Allergy, Severe, Stop breathing , 12/25/15) ciprofloxacin (Verified Allergy, Severe, hives, 12/25/15) Pentazocine Lactate (Verified Allergy, Intermediate, 12/25/15) morphine (Verified Allergy, Intermediate, Shortness of Breath, 12/25/15) [place] Nut (Verified Allergy, Unknown, 12/25/15) NSAIDS (Non-Steroidal Anti-Inflamma (Verified Allergy, Unknown, GI BLEED, 12/25/15) Phenothiazines (Verified Allergy, Unknown, 12/25/15) prochlorperazine (Verified Allergy, Unknown, diarrhea, 12/25/15) propoxyphene (Verified Allergy, Unknown, 12/25/15) tree nut (Verified Allergy, Unknown, 12/25/15) Home Medications From Gracilea Paredes [id number] 1950 05/15/2016 08:00 AM 02/22 [place] Plus Day take 1 capsule by oral route every 4 hours as needed Aspir-81 81 mg tablet,delayed release take 1 tablet by oral route every day azelastine 137 mcg (0.1 %) nasal spray aerosol spray 2 spray by intranasal route 2 times every day in each nostril cranberry diclofenac 1 % topical gel apply 1 gm by topical route 4 times every day to the affected area(s), max 8gm/day Dulera 200 mcg-5 mcg/actuation HFA aerosol inhaler inhale 2 puff by inhalation route 2 times every day in the morning and evening duloxetine 30 mg capsule,delayed release take 1 capsule by oral route every day Estrace 0.01% (0.1 mg/gram) vaginal cream place a pea sized amount to the cleansed and dried tissue around the urethral area every other day fluticasone 50 mcg/actuation nasal spray,suspension spray 1 spray by intranasal route every day in each nostril ipratropium bromide 0.03 % nasal spray spray 2 spray by intranasal route 2- 3 times every day in each nostril lidocaine 5 % topical ointment apply to feet topically as needed for pain daily lisinopril 10 mg tablet take 1 tablet by oral route every day Lyrica 50 mg capsule take 1 capsule by oral route 2 times every day Marijuana methocarbamol 500 mg tablet take 2 tablet by oral route 2 times every day METOPROLOL TARTRATE 25 MG TAB TAKE 1/2 TABLET BY MOUTH TWICE DAILY Monurol 3 gram oral packet take 1 sachet by oral route dissolved in 3 to 4 ounces (1/2 cup) of water every 2 weeks Nystop 100,000 unit/gram topical powder apply by topical route 2 times every day to the affected area(s) as needed ondansetron HCl 4 mg tablet take 1-2 tablet by oral route every 8 hours as needed for nausea and vomiting. oxycodone-acetaminophen 10 mg-325 mg tablet take 1 tablet by oral route every 4 hours as needed pantoprazole 40 mg tablet,delayed release take 1 tablet by oral route 2 times every day polyethylene glycol 3350 17 gram/dose oral powder take (17G) by oral route every day mixed with 8 oz. water, juice, soda, coffee or tea potassium chloride ER 20 mEq tablet,extended release take 1 tablet by oral route every day with food ProAir HFA 90 mcg/actuation aerosol inhaler inhale 2 puff by inhalation route every 4 - 6 hours as needed Singulair 10 mg tablet take 1 tablet by oral route every day in the evening Sudafed 12 Hour take 1 tablet by oral route every 4 hours as needed sumatriptan 100 mg tablet take 1 tablet by oral route after onset of migraine; may repeat after 2 hours if headache returns,not to exceed 200mg in 24hrs Zyrtec-D 5 mg-120 mg tablet,extended release take 1 tablet by oral route every 12 hours PMH Hypertension Recurrent UTI Candidiasis Prolapsed bladder - Seen by Dr. Vianey Choudhury Fibromyalgia IBS/GERD, Obesity with Hepatic Steatosis Migraines COPD Asthma Diabetes type 2, diet controlled although the diagnosis is not confirmed as per patient moderate AR, diastolic dysfunction grade 2 EF 60-65% on 12/2015 Lumbar radiculopathy Clostridium difficile colitis Hyperlipidemia Polyneuropathy Subclinical hyperthyroidism . Surgical History Hysterectomy SARA Appendectomy Cholecystectomy Tonsillectomy Family History Mother had CHF, Diabetes, Hyperlipidemia Father had Stroke Social History Hx Alcohol Use: No Hx Substance Use: No Hx Tobacco Use: Yes Hx Tobacco Use: No (QUIT 1 YEAR AGO, 46 YEARS 2 PACKS PER DAY) Smoking Status: Former Smoker Living Arrangement: with Family Exam Vital Signs Vital Sign - Last Date Time Temp Pulse Resp B/P Pulse Ox O2 Delivery O2 Flow Rate FiO2 05/15/16 13:01 36.8 88 18 105/73 97 Room Air Exam General: Alert, Oriented X3, Cooperative, No acute Distress but appears tired Eyes: PERRLA, Scleral Anicteric Mouth: Mouth Normal, Mucous Membranes Moist/[place] Neck: Supple, no Thyromegaly, trachea central. Chest & Lungs: Clear to auscultation & percussion, No adventitious breath sounds, no crackles, no wheeze Cardiovascular: Normal S1, Normal S2, No Murmurs/Rubs/Gallops, Regular Rate/ Rhythm, (No JVD, no peripheral edema) Pulses: Radial (present and equal), Dorsalis Pedi (present and equal) Abdomen: Soft, tenderness around epigastric, Non-distended, Normoactive bowel tones. Musculoskeletal: Unremarkable. Normal range of motion, no swollen or erythematous joints Extremities: No edema, no cyanosis, no clubbing. Skin: No rashes. Warm and dry, no erythematous areas Neurological: Grossly neurologically intact, Normal Speech, Sensation Intact Lymphatic: Lymph nodes Cervical and Axillary not palpable Lab and Diagnostics Labs Laboratory Tests Test 05/15/16 09:25 05/15/16 11:01 White Blood Count 15.6th/mm3 (3.8-10.1) Red Blood Count 4.88mil/mm3 (3.90-5.20) Hemoglobin 14.0g/dL (12.0-15.6) Hematocrit 43.9% (35.0-46.0) Mean Corpuscular Volume 90.0fL (81-100) Mean Corpuscular Hemoglobin 28.7pg (27.0-35.0) Mean Corpuscular Hemoglobin Concent 31.9% (32.0-37.0) Red Cell Distribution Width 15.5% (12.3-15.4) Platelet Count 346bil/L (150-400) Neutrophils (%) (Auto) 63.0% (40-74) Lymphocytes (%) (Auto) 27.7% (14-46) Monocytes (%) (Auto) 7.3% (4-12) Eosinophils (%) (Auto) 1.0% (0-5) Basophils (%) (Auto) 0.5% (0-3) Sodium Level 134mEq/L (134-144) Potassium Level 4.0mEq/L (3.5-5.2) Chloride Level 97mEq/L (97-108) Carbon Dioxide Level 19mmol/L (18-29) Blood Urea Nitrogen 58mg/dL (8-27) Creatinine 2.85mg/dL (0.57-1.00) Estimat Glomerular Filtration Rate 24mL/min (>59) Glucose Level 102mg/dL (60-99) Lactic Acid Level 1.8mmol/L (0.4-2.0) Calcium Level 10.0mg/dL (8.5-10.1) Total Bilirubin 0.3mg/dL (0.0-1.2) Aspartate Amino Transf (AST/SGOT) 14U/L (0-50) Alanine Aminotransferase (ALT/SGPT) 17U/L (0-32) Alkaline Phosphatase 60U/L (25-165) Troponin T < 0.010ug/L (0.0-0.011) Pro-B-Type Natriuretic Peptide 125.5pg/mL (0-287) Total Protein 7.4g/dL (6.4-8.4) Albumin 3.9g/dL (3.4-5.0) Procalcitonin 0.17ng/mL (0.00-0.08) Urine Color Yellow (YELLOW) Urine Appearance Hazy (CLEAR,HAZY) Urine pH 5.0 (5.0-8.0) Urine Specific [place] 1.025 (1.003-1.035) Urine Protein Negativemg/dL (NEG,TRACE) Urine Glucose (UA) Negativemg/dL (NEGATIVE) Urine Ketones Tracemg/dL (NEGATIVE) Urine Occult Blood Negative (NEGATIVE) Urine Nitrite Negative (NEGATIVE) Urine Bilirubin Negative (NEGATIVE) Urine Urobilinogen Normalmg/dL (NORMAL) Urine Leukocyte Esterase Small (NEGATIVE) Urine RBC 0-2/hpf (0-2) Urine WBC 11-50/hpf (0-5) Urine Epithelial Cells Occasional/hpf (NONE-MOD) Urine Crystals None seen (NONE SEEN) Urine Bacteria Many/hpf (NONE-FEW) Urine Hyaline Casts Occasional/lpf (NONE) Urine Granular Casts None seen (NONE SEEN) Urine Waxy Casts None seen (NONE SEEN) Urine Red Blood Cell Casts None seen (NONE SEEN) Urine White Blood Cell Casts None seen (NONE SEEN) Urine Mucus Present (None Seen) Urine Trichomonas None seen (NONE SEEN) Urine Yeast None (NONE SEEN) Urinalysis Comment None Urine Culture Reflexed Indicated Microbiology 05/15/16 Blood Culture, Received Pending 05/15/16 Urine Culture, Received Pending Result Diagram: 05/15/16 0925 05/15/16 0925 X-Rays, CTs and MRIs CT ABDOMEN AND PELVIS WITHOUT CONTRAST 05/15 IMPRESSION: 1. No CT findings to suggest pseudomembranous (C. difficile) colitis. 2. Diverticulosis. No active diverticulitis. 3. Small hiatal hernia. 4. A duodenal diverticulum. 5. Right lower lobe pneumonia. Dictated by: Alonso Durán M.D. on 05/15/2016 at 12:39 Approved by: Alonso Durán M.D. on 05/15/2016 at 12:44 X-RAY CHEST ONE VIEW, PORTABLE 05/15 IMPRESSION: Right upper and lower lobe infiltrates suspicious for pneumonia. Recommend followup to resolution. Dictated by: Alonso Durán M.D. on 05/15/2016 at 10:42 Approved by: Alonso Durán M.D. on 05/15/2016 at 10:43 Assessment & Plan Graciela Ibarra is a 65 year old female with Diabetes, Hypertension, Hyperlipidemia, recurrent UTI with recent bout of C difficile colitis who presents to [facility] emergency department complaining of abdominal pain 1. Nausea and vomiting with epigastric pain. Present on admission Etiology is unclear but Peptic ulcer disease suspected. NO evidence of pseudomembranous colitis. Also could be related to viral gastroenteritis - continue Protonix daily - Dr Cade recommend upper endoscopy if pain persists 2. Acute with recurrent Urinary tract infections. Present on admission - continuing Tigacil as per Dr Johnson recommendations 3. Acute Kidney Injury. Present on admission - suspect pre renal azotemia due to hypovolemia - Nephrology consulted 4 Possible Community acquired pneumonia. Present on admission With vomiting, aspiration could be possible. Patient denies any coughing but the infiltrates was seen on Chest CT - should be covered with Tygacil recommended - Blood cultures x 2 5 Persistent diarrhea. Present on admission Suspect Viral gastroenteritis but has risk factors for recurrent C difficile colitis - checking for C difficile and viral PCR 6 Acute Hypotension with Hypertension. Present on admission Likely due to volume loss from diarrhea as well as vomiting - holding Lisinopril 10 mg daily and Metoprolol 12.5 mg bid 7 Chronic COPD/Asthma No signs of acute exacerbation - continuing Dulera, Ipratropium and Albuterol PRN - continuing Singular daily 8 Chronic pain syndrome with narcotic dependence - continue outpatient pain regimen - Acetaminophen as needed for mild pain/fever/headache - Bowel regimen as needed - Antiemetic as needed Patient admitted under inpatient status with expected length of stay > 2 midnights for severity of present symptoms, complexities of treatment plan and risk for adverse event . Resuscitation Status: CPR: Attempt Resuscitation Sarath Welsh MD May 15, 2016 14:51
[2016-05-15] MEDS: Tigecycline Inj 50 MG in 0.9% Sodium Chloride 100 ML IV SCH (20:40)
[2016-05-16] VITALS (8 sets, daily range): BP systolic 146–189; BP diastolic 54–77; PULSE 70–76; RESP 16–20; O2SAT 94–98
[2016-05-16] MEDS: HYDROmorphone 1 mg/mL Inj IVPUSH PRN ×3 (00:06→19:48)
[2016-05-16] MEDS: Heparin 5,000 Unit/mL Inj SUBQ SCH ×3 (00:21→17:22)
[2016-05-16 03:23] LABS: BASOPHILS % (AUTO) 0.5 % (0-3); EOSINOPHILS % (AUTO) 1.6 % (0-5); MONOCYTES % (AUTO) 11.3 % (4-12); Mean Corpuscular Hemoglobin 28.5 pg (27.0-35.0); Mean Corpuscular Volume 90.2 fL (81-100); NEUTROPHILS % (AUTO) 43.9 % (40-74); Platelet Count 282 bil/L (150-400)
[2016-05-16] MEDS: 0.9% Sodium Chloride 1,000 ML IV SCH ×3 (04:28→17:19)
[2016-05-16] MEDS ORDERED: Albuterol 2.5 mg/3 mL Inhalation Solution NEB PRN ×2 (04:30→16:00)
[2016-05-16] MEDS: Ondansetron 2 mg/mL 2 mL Inj IVPUSH PRN ×3 (04:33→19:52)
[2016-05-16] MEDS ORDERED: Tigecycline Inj 50 MG in 0.9% Sodium Chloride 100 ML IV SCH (05:00)
--- NOTE | 2016-05-16 06:25 | NUR ---
GI/Pain/Respiratory Pt did not have a BM this shift so no stool sample sent, will pass on to day RN. Pt did have c/o some nausea w/out emesis this morning after getting up to use the BSC, given Zofran w/ good effect. Pt c/o chronic lower back pain 8-10/25, relief w/ PRN Dilaudid. Pt also continues to c/o 09/24 abdominal pain, at beginning of shift stating this was around RUQ but later saying it was generalized mid/lower left and right abdomen described by pt as similar to having really bad flatus. PRN Dilaudid/Tylenol given for both abdominal and back pain w/ good effect as pt appeared to sleep comfortably between care interventions throughout most of the night. Pt communicated that she regularly takes inhalers at home and voiced that she would like neb treatments available as she does get SOB w/ exertion and does notably have increased wheezing. Sats maintain throughout in mid 90s. paged and ordered Q2 hour PRN neb treatments. Pt is aware these are available as needed and has not required one yet.
[2016-05-16] MEDS: Tigecycline Inj 50 MG in 0.9% Sodium Chloride 100 ML IV SCH ×2 (09:16→20:02)
--- NOTE | 2016-05-16 10:44 | NUR ---
pain/temperature pt c/o generalized aching and chills, flushing noted. oral temperature elevated. pt bundled up in bedding. PRN tylenol given with follow up temperature 98.8. PRN dilaudid given for further generalized pain. will continue to monitor.
--- NOTE | 2016-05-16 12:38 | PCM.PNMED ---
Subjective Date of Service May 16, 2016 Subjective Some wheezing and dyspnea. A lot of abdomen pain, nausea, and soft stools. No fevers of chills. Exam Vital Signs Vital Sign - Last Date Time Temp Pulse Resp B/P Pulse Ox O2 Delivery O2 Flow Rate FiO2 05/16/16 12:26 37.0 70 18 182/75 98 Room Air 05/15/16 23:53 1.50 Intake and Output 05/15/16 05/15/16 05/16/16 Cumulative From/Thru 15:00 23:00 07:00 05/15/16 09:00 - 05/16/16 06:48 Intake Total 1000 ml 1040 ml 2040 ml Output Total 1050 ml 1050 ml Balance 1000 ml -10 ml 990 ml Intake Oral 1040 ml 1040 ml IV Total 1000 ml 1000 ml Output Urine Total 1050 ml 1050 ml Exam No distress, a little confused. Anicteric sclera Lungs with decreased BS, expiratory wheezing Heart regular Abdomen soft, but tender diffusely, normal BT's. No edema No skin rash IVs and Medications Medications Reviewed: Medications were reviewed in detail Lab and Diagnostics Result Diagram: 05/16/16 0305 05/16/16 0305 X-Rays, CTs and MRIs CT ABDOMEN AND PELVIS WITHOUT CONTRAST 05/15 IMPRESSION: 1. No CT findings to suggest pseudomembranous (C. difficile) colitis. 2. Diverticulosis. No active diverticulitis. 3. Small hiatal hernia. 4. A duodenal diverticulum. 5. Right lower lobe pneumonia. Dictated by: Alonso Durán M.D. on 05/15/2016 at 12:39 Approved by: Alonso Durán M.D. on 05/15/2016 at 12:44 X-RAY CHEST ONE VIEW, PORTABLE 05/15 IMPRESSION: Right upper and lower lobe infiltrates suspicious for pneumonia. Recommend followup to resolution. Dictated by: Alonso Durán M.D. on 05/15/2016 at 10:42 Approved by: Alonso Durán M.D. on 05/15/2016 at 10:43 Assessment & Plan Graciela Ibarra is a 65 year old female with Diabetes, Hypertension, Hyperlipidemia, recurrent UTI with recent bout of C difficile colitis who presents to [facility] emergency department complaining of abdominal pain 1. CDT colitis and diarrhea (PCR positive). POA. Continue Tygacil 2. Acute with recurrent Urinary tract infections. Present on admission - continuing Tigacil as per Dr Johnson recommendations, await Urine culture ( 100K GNR). 3. Acute Kidney Injury. Present on admission. Improving. - suspect pre renal azotemia due to hypovolemia - Nephrology consulted, this is stable. Continue saline. 4 Possible Community acquired pneumonia. Present on admission With vomiting, aspiration could be possible. Patient denies any coughing but the infiltrates was seen on Chest CT - should be covered with Tygacil recommended - Blood cultures x 2 5 Acute Hypotension with Hypertension. Present on admission Improved with fluid and hold BP medications 7 Chronic COPD/Asthma No signs of acute exacerbation - continuing Dulera, Ipratropium and Albuterol PRN - continuing Singular daily Add Duonebs PRN. 8 Chronic pain syndrome with narcotic dependence - continue outpatient pain regimen - Acetaminophen as needed for mild pain/fever/headache - Bowel regimen as needed - Antiemetic as needed Patient admitted under inpatient status with expected length of stay > 2 midnights for severity of present symptoms, complexities of treatment plan and risk for adverse event . Pain Evaluation: Pain not Controlled Resuscitation Status: CPR: Attempt Resuscitation Time spent 30 min rKis Donohue MD May 16, 2016 12:38
--- NOTE | 2016-05-16 14:02 | PCM.PNNEPH ---
Subjective Date of Service May 16, 2016 Subjective The patient complains of difficulty breathing this morning. She reported that she has not received any nebulizer treatment since she is admitted. She reports no loose stool this morning. She has abdominal discomfort. Stool C. difficile toxin came back positive. Kidney function continued to improve after IV fluid resuscitation. Blood pressure is on the high side. She reports having upper extremity swelling. Exam Vital Signs Vital Sign - Last Date Time Temp Pulse Resp B/P Pulse Ox O2 Delivery O2 Flow Rate FiO2 05/16/16 12:26 37.0 70 18 182/75 98 Room Air 05/15/16 23:53 1.50 Intake and Output 05/15/16 05/15/16 05/16/16 Cumulative From/Thru 15:00 23:00 07:00 05/15/16 09:00 - 05/16/16 06:48 Intake Total 1000 ml 1040 ml 2040 ml Output Total 1050 ml 1050 ml Balance 1000 ml -10 ml 990 ml Intake Oral 1040 ml 1040 ml IV Total 1000 ml 1000 ml Output Urine Total 1050 ml 1050 ml Exam GENERAL: The patient in no apparent distress, and alert and oriented x3. HEENT: Head is normocephalic and atraumatic. Extraocular muscles are intact. NECK: Supple, no elevation of JVD, No carotid bruits. No lymphadenopathy or thyromegaly. LUNGS: Decreased air entry bilaterally, expiratory wheezing noted. HEART: Normal S1/S2, Regular rate and rhythm, no murmurs, rubs or gallops. ABDOMEN: Soft, diffuse tenderness mainly on the lower abdomen and positive rebound . Positive bowel sounds. No hepatosplenomegaly was noted. EXTREMITIES: Without any cyanosis, clubbing, rash, lesions or edema. Lab and Diagnostics Result Diagram: 05/16/16 0305 05/16/16 0305 X-Rays, CTs and MRIs CT ABDOMEN AND PELVIS WITHOUT CONTRAST 05/15 IMPRESSION: 1. No CT findings to suggest pseudomembranous (C. difficile) colitis. 2. Diverticulosis. No active diverticulitis. 3. Small hiatal hernia. 4. A duodenal diverticulum. 5. Right lower lobe pneumonia. Dictated by: Alonso Durán M.D. on 05/15/2016 at 12:39 Approved by: Alonso Durán M.D. on 05/15/2016 at 12:44 X-RAY CHEST ONE VIEW, PORTABLE 05/15 IMPRESSION: Right upper and lower lobe infiltrates suspicious for pneumonia. Recommend followup to resolution. Dictated by: Alonso Durán M.D. on 05/15/2016 at 10:42 Approved by: Alonso Durán M.D. on 05/15/2016 at 10:43 Plan Impression 1. Acute kidney injury secondary to prerenal azotemia 2. Sepsis 3. Recurrent C. difficile infection 4. Gram-negative sandra UTI 5. Hypotension secondary to intravascular volume depletion. 6. Chronic asthma/COPD. Plan: Decrease normal saline to 60 mL per hour Antibiotic as per infectious disease specialist Avoid nephrotoxins, repeat BMP in the morning Destin Jefferson MD May 16, 2016 14:02
--- NOTE | 2016-05-16 15:47 | NUR ---
Social Work: Initial Assessment Data and Assessment: See Initial Assessment. EMR reviewed. Pt is a 70 y/o female admitted for AFIB w/ RVR per H&P. Pt's PCP is Dr Bullock, pt's insurance is Medicare with [employer] supp. [employer] met with patient and patient's spouse, Tono Ibarra [phone], to complete initial assessment, discharge planning and SW role explained. Pt lives with her in a single story home with three steps to enter where she uses a walker at baseline. Pt reports that she does not have a DPOA, and SW provided her with the information. Pt does not drive. Pt states has a history with [facility] and has caregivers from [facility] who come into her home 3 times a week for 2 hours at a time. 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 Patient has been to [facility] in the past. [employer] will continue to follow. Plan: Pt will discharge home via POV. [employer] will R/O need for HH. [employer] will continue to follow. will continue to follow. Vida Blackmon LMSW, [facility] Addendum: 05/16/16 at 1559 by VIDA SWEENEY Amended: Links added.
--- NOTE | 2016-05-16 19:12 | NUR ---
Migraine pt c/o severe migraine headache with nausea. prn zofran and sumatriptan given. pt states zofran effective for nausea, awaiting results of sumatriptan.
[2016-05-16] MEDS: Pantoprazole 40 mg ER24 Tablet PO SCH (20:04)
[2016-05-16] MEDS: oxyCODONE-Acetamin 10-325 mg Tablet PO PRN (22:26)
[2016-05-16] MEDS: Ondansetron 8 mg ODT Tablet PO PRN (23:25)
[2016-05-17] VITALS (13 sets, daily range): BP systolic 150–197; BP diastolic 55–75; PULSE 60–69; RESP 14–22; O2SAT 94–97
[2016-05-17] MEDS: Heparin 5,000 Unit/mL Inj SUBQ SCH ×3 (00:48→17:10)
[2016-05-17] MEDS: HYDROmorphone 1 mg/mL Inj IVPUSH PRN ×2 (00:48→18:47)
[2016-05-17 03:16] LABS: BASOPHILS % (AUTO) 0.2 % (0-3); EOSINOPHILS % (AUTO) 0.6 % (0-5); MONOCYTES % (AUTO) 9.8 % (4-12); Mean Corpuscular Hemoglobin 27.9 pg (27.0-35.0); Mean Corpuscular Volume 87.7 fL (81-100); NEUTROPHILS % (AUTO) 56.7 % (40-74); Platelet Count 265 bil/L (150-400)
[2016-05-17 03:36] LABS: Magnesium 1.5 mg/dL (1.6-2.6)
[2016-05-17] MEDS: Ondansetron 8 mg ODT Tablet PO PRN (06:03)
[2016-05-17] MEDS: oxyCODONE-Acetamin 10-325 mg Tablet PO PRN (06:06)
--- NOTE | 2016-05-17 07:37 | NUR ---
HTN/Nausea/Pain During night SBP mostly 170s-180s varying between times when pt was in pain and nauseous/dry heaving. MD notified in case intervention wanted, no new orders given. Pt having intermittent nausea at beginning of shift which was helped w/ IV Zofran. However, some time after getting percocet pt was dry heaving, no emesis noted this shift. Pt given dissolving Zofran tablet with good effect as pt stated nausea was gone when she wanted a neb treatment, which she tolerated well. Pt given Percocet and Dilaudid for breakthrough pain. Pain was usually 8/10 in lower back and generalized abdomen. Pt reported good effect with these medications and was able to sleep for a good portion of the night around mid shift, but once awake the pain was back up to 8/10. Pt given education on pain management in attempt to prevent pain from increasing.
[2016-05-17] MEDS ORDERED: Magnesium Sulf 4 Gm/100 mL H2O 4 GM in IV Premix 1 EACH IV ONE (07:55)
[2016-05-17] MEDS: Tigecycline Inj 50 MG in 0.9% Sodium Chloride 100 ML IV SCH ×2 (09:34→20:30)
[2016-05-17] MEDS: DULoxetine 30 mg DR Capsule PO SCH (09:35)
[2016-05-17] MEDS: Pantoprazole 40 mg ER24 Tablet PO SCH ×2 (09:35→20:28)
[2016-05-17] MEDS: Ondansetron 2 mg/mL 2 mL Inj IVPUSH PRN (11:54)
--- NOTE | 2016-05-17 12:20 | PCM.PNMED ---
Subjective Date of Service May 17, 2016 Subjective She has ongoing diarrhea as well as some nausea with emesis times 3 this AM. Some abdomen pain. No cough or dyspnea. No dysurua. No fevers or chills. Exam Vital Signs Vital Sign - Last Date Time Temp Pulse Resp B/P Pulse Ox O2 Delivery O2 Flow Rate FiO2 05/17/16 12:03 37.0 64 16 95 Room Air 05/15/16 23:53 1.50 Intake and Output 05/16/16 05/16/16 05/17/16 Cumulative From/Thru 15:00 23:00 07:00 05/15/16 09:00 - 05/17/16 06:43 Intake Total 2025 ml 1410 ml 200 ml 5675 ml Output Total 952 ml 1102 ml 3104 ml Balance 2025 ml 458 ml -902 ml 2571 ml Intake Oral 1280 ml 200 ml 2520 ml IV Total 2025 ml 130 ml 3155 ml Output Urine Total 950 ml 1100 ml 3100 ml Urine/Stool Mix 2 ml 2 ml 4 ml # Bowel Movements 3 3 Exam No distress, alert and oriented. Anicteric sclera Lungs clear Heart regular, without murmur Abdomen slightly tender, no rebound. No edema No rash. IVs and Medications Medications Reviewed: Medications were reviewed in detail Lab and Diagnostics Result Diagram: 05/17/16 0310 05/17/16 031 X-Rays, CTs and MRIs CT ABDOMEN AND PELVIS WITHOUT CONTRAST 05/15 IMPRESSION: 1. No CT findings to suggest pseudomembranous (C. difficile) colitis. 2. Diverticulosis. No active diverticulitis. 3. Small hiatal hernia. 4. A duodenal diverticulum. 5. Right lower lobe pneumonia. Dictated by: Alonso Durán M.D. on 05/15/2016 at 12:39 Approved by: Alonso Durán M.D. on 05/15/2016 at 12:44 X-RAY CHEST ONE VIEW, PORTABLE 05/15 IMPRESSION: Right upper and lower lobe infiltrates suspicious for pneumonia. Recommend followup to resolution. Dictated by: Alonso Durán M.D. on 05/15/2016 at 10:42 Approved by: Alonso Durán M.D. on 05/15/2016 at 10:43 Assessment & Plan Graciela Ibarra is a 65 year old female with Diabetes, Hypertension, Hyperlipidemia, recurrent UTI with recent bout of C difficile colitis who presents to [facility] emergency department complaining of abdominal pain 1. CDT colitis and diarrhea (PCR positive). POA. Continue Tygacil . Will add PO vanco today. 2. Acute with recurrent Urinary tract infections. Present on admission. Klebsiella pansensitive except ampicillin. - continuing Tigacil as per Dr Johnson recommendations, await Urine culture ( 100K GNR). 3. Acute Kidney Injury. Present on admission. Improving. - suspect pre renal azotemia due to hypovolemia - Nephrology consulted, this is stable. Continue half normal saline. 4 Possible Community acquired pneumonia. Present on admission With vomiting, aspiration could be possible. Patient denies any coughing but the infiltrates was seen on Chest CT - should be covered with Tygacil recommended - Blood cultures x 2 (negative). No changes today. 5 Acute Hypotension. Present on admission Improved with fluid and hold BP medications 7 Chronic COPD/Asthma No signs of acute exacerbation - continuing Dulera, Ipratropium and Albuterol PRN - continuing Singular daily Add Duonebs PRN. 8 Chronic pain syndrome with narcotic dependence - continue outpatient pain regimen - Acetaminophen as needed for mild pain/fever/headache - Bowel regimen as needed - Antiemetic as needed Patient admitted under inpatient status with expected length of stay > 2 midnights for severity of present symptoms, complexities of treatment plan and risk for adverse event . Pain Evaluation: Adequate Pain Control Resuscitation Status: CPR: Attempt Resuscitation Time spent 30 min Kris Donohue MD May 17, 2016 12:19
--- NOTE | 2016-05-17 12:49 | PCM.PNNEPH ---
Subjective Date of Service May 17, 2016 Subjective Kidney function continues to improve. She remains having watery diarrhea and nausea vomiting. Exam Vital Signs Vital Sign - Last Date Time Temp Pulse Resp B/P Pulse Ox O2 Delivery O2 Flow Rate FiO2 05/17/16 12:15 22 197/72 97 Nasal Cannula 2.00 05/17/16 12:03 37.0 64 Intake and Output 05/16/16 05/16/16 05/17/16 Cumulative From/Thru 15:00 23:00 07:00 05/15/16 09:00 - 05/17/16 06:43 Intake Total 2025 ml 1410 ml 200 ml 5675 ml Output Total 952 ml 1102 ml 3104 ml Balance 2025 ml 458 ml -902 ml 2571 ml Intake Oral 1280 ml 200 ml 2520 ml IV Total 2025 ml 130 ml 3155 ml Output Urine Total 950 ml 1100 ml 3100 ml Urine/Stool Mix 2 ml 2 ml 4 ml # Bowel Movements 3 3 Exam GENERAL: The patient in no apparent distress, and alert and oriented x3. HEENT: Head is normocephalic and atraumatic. Extraocular muscles are intact. NECK: Supple, no elevation of JVD, No carotid bruits. No lymphadenopathy or thyromegaly. LUNGS: Decreased air entry bilaterally, no wheezing or rhonchi HEART: Normal S1/S2, Regular rate and rhythm, no murmurs, rubs or gallops. ABDOMEN: Soft, diffuse tenderness mainly on the lower abdomen, no rebound . Positive bowel sounds. No hepatosplenomegaly was noted. EXTREMITIES: Without any cyanosis, clubbing, rash, lesions or edema. Lab and Diagnostics Result Diagram: 05/17/1630905/17/16309 X-Rays, CTs and MRIs CT ABDOMEN AND PELVIS WITHOUT CONTRAST 05/15 IMPRESSION: 1. No CT findings to suggest pseudomembranous (C. difficile) colitis. 2. Diverticulosis. No active diverticulitis. 3. Small hiatal hernia. 4. A duodenal diverticulum. 5. Right lower lobe pneumonia. Dictated by: Alonso Durán M.D. on 05/15/2016 at 12:39 Approved by: Alonso Durán M.D. on 05/15/2016 at 12:44 X-RAY CHEST ONE VIEW, PORTABLE 05/15 IMPRESSION: Right upper and lower lobe infiltrates suspicious for pneumonia. Recommend followup to resolution. Dictated by: Alonso Durán M.D. on 05/15/2016 at 10:42 Approved by: Alonso Durán M.D. on 05/15/2016 at 10:43 Plan Impression 1. Acute kidney injury secondary to prerenal azotemia 2. Sepsis 3. Recurrent C. difficile infection 4. Klebsiella UTI 5. Right lower lobe pneumonia5. 6. Hypotension secondary to intravascular volume depletion. 7. Chronic asthma/COPD. 8. Hypomagnesemia. Plan: Start magnesium sulfate 4 g IV piggyback 1. Switch to normal saline to half normal saline 60 mL per hour. Repeat BMP in the morning Destin eJfferson MD May 17, 2016 12:49
[2016-05-17] MEDS: MetoCLOpramide 5 mg/mL 2 mL Inj IVPUSH PRN ×2 (13:27→19:52)
--- NOTE | 2016-05-17 14:41 | NUR ---
Nausea&vomiting/unresponsive episode/HTN pt continues to have intractable nausea and emesis. emesis yellow in color. pt noting abdominal pain/tenderness and bowel movements yellow brown mucusy. MD informed of ineffectiveness of zofran, new orders received for reglan. will continue to follow up. Pt had episode of brief unresponsiveness while on bsc and having dry heaves. pt face became purple and pt slumped. pt moved back to bed and awoke, asking "what happened?, I didnt wipe". quality assurance monitor body noted no tele changes. SBP 197/86. MD informed of situation. pt encouraged to call when gettting out of bed. Continue to monitor. Discussed pt's HTN with md, plan to continue monitoring at this time.
--- NOTE | 2016-05-17 15:14 | PROG NOTE ---
[address] [address] PROGRESS NOTE PATIENT: WILY SOLANO : 1950 MR#: [id number] ADMIT: 05/15/2016 JOB ID: [id number] DATE: 05/17/2016 REASON FOR FOLLOWUP: C. difficile colitis, recurrent. Over the last 36 hours since I have last seen the patient, she has had rather severe and worsening nausea and sometimes vomiting. Despite that, she has been able to keep down some oral fluids and meds and she has noted that her abdominal cramps and pain with diarrhea have actually lessened somewhat. She has complained of subjective fever and chills. No cough or shortness of breath. PHYSICAL EXAMINATION: Reveals an afebrile woman. Temp 36.8, pulse 63, respiratory rate 18, blood pressure 164/66. She is saturating well on room air. The patient appears to be in mild distress due to her ongoing GI complaints, but she is awake and oriented. No herpetic lesions on the lips. Lungs quite clear posteriorly. Cardiac tones without murmur. Abdomen with diffuse tenderness, especially in the left upper quadrant. No skin rashes noted. LABORATORIES: Include a white count which has normalized to 8500, completely normal diff. Creatinine has dropped all the way from 2.85 on admission two days down to 0.88. Bicarb has normalized to 21. Urinalysis on admission had 11-50 white cells and grew Klebsiella pneumoniae, which was fairly susceptible, including doxycycline, which would include tigecycline. Other micro results of interest include the stool PCR positive for C. diff. Negative blood cultures. Negative urine eosinophil screen. IMAGING: Includes abdominal pelvic CT scan which shows no findings for C. diff and a possible right lower lobe infiltrate. IMPRESSION: This patient has now suffered yet another recurrence of her Clostridium difficile colitis and will likely require stool transplant. When she first came in, it was unclear if she had pneumonia, recurrent C. difficile, other cause of diarrhea, urinary tract infection, or some combination of these processes. I think it is becoming clear that the main issue here is the C. difficile. The patient says she never has dysuria or flank pain with her so-called urinary tract infections, and I wonder if what we are evaluating and treating here is really colonization with Klebsiella pneumoniae. Certainly, the inadvertent giving of antibiotics to someone with a history of recurrent and frequent C. difficile exacerbations such as this can be very deleterious. As to whether or not she has pneumonia, I am inclined to think not, as she has no cough and her white count has rapidly normalized. I think the main thing that is going on here is a recurrent episode of C. difficile. The nausea and vomiting that has been worsening since admission is almost certainly due to tigecycline, as about 30% of people do not tolerate this antibiotic. The reason tigecycline was chosen is a possible empiric therapy for pneumonia or urinary tract infection in this case was because it does not make C. difficile worse and may sometimes make it better. RECOMMENDATIONS: 1. Will discontinue tigecycline. 2. Will continue with the vancomycin that was started this morning by the hospitalist and this is oral vancomycin. 3. No additional antibiotics at this time. 4. As the patient continues to improve with respect to her overall function and renal failure, she can be discharged on the oral vancomycin with a tapering dose, but I think this is a patient who will need referral to one of the GI centers in [place] which provide stool transplant. This was discussed with the patient.
[2016-05-17] MEDS: Vancomycin 250 mg Oral Capsule PO SCH ×2 (15:20→20:28)
[2016-05-18] MEDS: Heparin 5,000 Unit/mL Inj SUBQ SCH ×4 (01:32→23:56)
[2016-05-18] MEDS: Vancomycin 250 mg Oral Capsule PO SCH ×4 (01:36→20:32)
[2016-05-18] MEDS: HYDROmorphone 1 mg/mL Inj IVPUSH PRN ×4 (01:49→20:52)
[2016-05-18] MEDS: MetoCLOpramide 5 mg/mL 2 mL Inj IVPUSH PRN ×4 (01:54→20:51)
[2016-05-18 03:35] VITALS: BP 147/57; PULSE 63; RESP 16; O2SAT 94
--- NOTE | 2016-05-18 07:53 | NUR ---
GI/Pain Pt had no diarrhea last night, no emesis noted. Pt given Reglan x2 for some nausea, pt reported good effect w/ this med. Pt also given PRN Dilaudid for 8/10 back/abdominal pain w/ good effect, pt hesitant to take percocet d/t intermittent nausea. Pt refused Tigecycline, per note this was to be DC'd. Pt taking ordered Vanco Q6. Overall pt slept much more than previous night and appeared comfortable w/ less GI symptoms as night progressed.
[2016-05-18 08:18] VITALS: BP 159/85; PULSE 65; RESP 16; O2SAT 96
[2016-05-18] MEDS: Pantoprazole 40 mg ER24 Tablet PO SCH ×2 (08:35→20:32)
[2016-05-18] MEDS: DULoxetine 30 mg DR Capsule PO SCH (08:35)
[2016-05-18 08:51] VITALS: PULSE 62
--- NOTE | 2016-05-18 11:11 | PCM.PNNEPH ---
Subjective Date of Service May 18, 2016 Subjective (+) watery diarrhea, nausea, vomiting. no cough, no dysuria. no fever/chills. Exam Vital Signs Vital Sign - Last Date Time Temp Pulse Resp B/P Pulse Ox O2 Delivery O2 Flow Rate FiO2 05/18/16 08:51 62 05/18/16 08:18 36.6 16 159/85 96 Room Air 05/17/16 15:52 2.00 Intake and Output 05/17/16 05/17/16 05/18/16 Cumulative From/Thru 15:00 23:00 07:00 05/15/16 09:00 - 05/18/16 05:51 Intake Total 835 ml 794 ml 100 ml 8404 ml Output Total 1013 ml 650 ml 4767 ml Balance 835 ml -219 ml -550 ml 3637 ml Intake Oral 200 ml 100 ml 2820 ml IV Total 835 ml 594 ml 5584 ml Output Urine Total 950 ml 650 ml 4700 ml Urine/Stool Mix 3 ml 7 ml Emesis 60 ml 60 ml # Bowel Movements 3 Exam GENERAL: The patient in no apparent distress, and alert and oriented x3. HEENT: Head is normocephalic and atraumatic. Extraocular muscles are intact. NECK: Supple, no elevation of JVD, No carotid bruits. No lymphadenopathy or thyromegaly. LUNGS: Decreased air entry bilaterally, no wheezing or rhonchi HEART: Normal S1/S2, Regular rate and rhythm, no murmurs, rubs or gallops. ABDOMEN: Soft, diffuse tenderness mainly on the lower abdomen, no rebound . Positive bowel sounds. No hepatosplenomegaly was noted. EXTREMITIES: Without any cyanosis, clubbing, rash, lesions or edema. Lab and Diagnostics Result Diagram: 05/17/1630905/17/16309 X-Rays, CTs and MRIs CT ABDOMEN AND PELVIS WITHOUT CONTRAST 05/15 IMPRESSION: 1. No CT findings to suggest pseudomembranous (C. difficile) colitis. 2. Diverticulosis. No active diverticulitis. 3. Small hiatal hernia. 4. A duodenal diverticulum. 5. Right lower lobe pneumonia. Dictated by: Alonso Durán M.D. on 05/15/2016 at 12:39 Approved by: Alonso Durán M.D. on 05/15/2016 at 12:44 X-RAY CHEST ONE VIEW, PORTABLE 05/15 IMPRESSION: Right upper and lower lobe infiltrates suspicious for pneumonia. Recommend followup to resolution. Dictated by: Alonso Durán M.D. on 05/15/2016 at 10:42 Approved by: Alonso Durán M.D. on 05/15/2016 at 10:43 Plan Impression 1. Acute kidney injury secondary to prerenal azotemia, resolved. 2. Recurrent C. difficile infection 3. Asymptomatic Klebsiella UTI 4. Hypertension. 5. Chronic asthma/COPD. 6. Hypomagnesemia. Plan: continue 0.45 NS 60 ml/hr resume metoprolol XL 25 mg daily. BMP and Mg in am. Destin Jefferson MD May 18, 2016 11:11
--- NOTE | 2016-05-18 12:53 | PCM.PNMED ---
Subjective Date of Service May 18, 2016 Subjective Nausea is much better, No emesis. No chest or abdomen pain. One fever last night. No dysuria, much less diarrhea. Exam Vital Signs Vital Sign - Last Date Time Temp Pulse Resp B/P Pulse Ox O2 Delivery O2 Flow Rate FiO2 05/18/16 08:51 62 05/18/16 08:18 36.6 16 159/85 96 Room Air 05/17/16 15:52 2.00 Intake and Output 05/17/16 05/17/16 05/18/16 Cumulative From/Thru 15:00 23:00 07:00 05/15/16 09:00 - 05/18/16 05:51 Intake Total 835 ml 794 ml 100 ml 8404 ml Output Total 1013 ml 650 ml 4767 ml Balance 835 ml -219 ml -550 ml 3637 ml Intake Oral 200 ml 100 ml 2820 ml IV Total 835 ml 594 ml 5584 ml Output Urine Total 950 ml 650 ml 4700 ml Urine/Stool Mix 3 ml 7 ml Emesis 60 ml 60 ml # Bowel Movements 3 Exam Alert and oriented, fluent speech Anicteric sclera Lungs clear, normal effort heart regular, no murmur Abdomen soft, NT No edema. No rash IVs and Medications Medications Reviewed: Medications were reviewed in detail Lab and Diagnostics Result Diagram: 05/17/1630905/17/16309 X-Rays, CTs and MRIs CT ABDOMEN AND PELVIS WITHOUT CONTRAST 05/[address]: 1[address] CT findings to suggest pseudomembranous (C. difficile) colitis. 2. Diverticulosis. No active diverticulitis. 3. Small hiatal hernia. 4. A duodenal diverticulum. 5. Right lower lobe pneumonia. Dictated by: Alonso Durán M.D. on 05/15/2016 at 12:39 Approved by: Alonso Durán M.D. on 05/15/2016 at 12:44 X-RAY CHEST ONE VIEW, PORTABLE 05/15 IMPRESSION: Right upper and lower lobe infiltrates suspicious for pneumonia. Recommend followup to resolution. Dictated by: Alonso Durán M.D. on 05/15/2016 at 10:42 Approved by: Alonso Durán M.D. on 05/15/2016 at 10:43 Assessment & Plan Graciela Ibarra is a 65 year old female with Diabetes, Hypertension, Hyperlipidemia, recurrent UTI with recent bout of C difficile colitis who presents to [facility] emergency department complaining of abdominal pain 1. CDT colitis and diarrhea (PCR positive). POA. Discontinued Tygacil 05/17 . Will continue PO vancomycin. 2. Acute with recurrent Urinary tract infections. Present on admission. Klebsiella pansensitive except ampicillin. - Should have been treated with Tygacil, recheck UA. 3. Acute Kidney Injury. Present on admission. Resolved with hydration. - suspect pre renal azotemia due to hypovolemia - Nephrology consulted, this is stable. Continue half normal saline. 4 Possible Community acquired pneumonia. Present on admission With vomiting, aspiration could be possible. Patient denies any coughing but the infiltrates was seen on Chest CT - should be covered with Tygacil as completed. - Blood cultures x 2 (negative). No changes today. No further ABx 5 Acute Hypotension. Resolved with hydration. 7 Chronic COPD/Asthma No signs of acute exacerbation - continuing Dulera, Ipratropium and Albuterol PRN - continuing Singular daily Add Duonebs PRN. 8 Chronic pain syndrome with narcotic dependence - continue outpatient pain regimen - Acetaminophen as needed for mild pain/fever/headache - Bowel regimen as needed - Antiemetic as needed Patient admitted under inpatient status with expected length of stay > 2 midnights for severity of present symptoms, complexities of treatment plan and risk for adverse event . Pain Evaluation: Adequate Pain Control Resuscitation Status: CPR: Attempt Resuscitation Time spent 30 min Kris Donohue MD May 18, 2016 12:53
[2016-05-18] MEDS: MeTOProlol XL 25 mg ER24 Tablet PO SCH (13:04)
--- NOTE | 2016-05-18 14:38 | NUR ---
NUTRITION ASSESSMENT Assess: 65 YO F admitted with C.diff, possible PNA, UTI, and CORTES, resolved. Pt has been on Clear liquid diet X 3 days. PMHX: HTN, UTI, prolapsed bladder, fibromyalgia, IBS/GERD, COPD, asthma, type 2 DM, C.diff colitis, HLD, polyneuropathy. DIET: Clear liquids X 3 days. PO 0-75%. LABS: (05/17): Mg 1.5 MEDICATIONS: Reviewed. GI: 3 BM (05/16). N/V improved. SKIN: No issues noted. ANTHROPOMETRICS: WT: 86.0 kg, BMI 34.7 kg/m2, IBW 50.0 kg. ESTIMATED NEEDS: BMI Calories: 3192-6754 kcal/day (20-22 kcal/kg BW) Protein: 60-75 g/day (1.2-1.5 g/kg IBW) NUTRITION DIAGNOSIS: 1) Inadequate oral intake related to decreased ability to consume sufficient energy as evidenced by clear liquids X 3 days. INTERVENTION: 1) Will await timely advancement of diet, if unable to advance diet in the next 2-4 days recommend nutrition support. MONITOR/EVALUATE: PO intake, diet advance/tolerance, labs, GI/nutrition status. Follow per moderate nutrition risk guidelines.
--- NOTE | 2016-05-18 15:09 | NUR ---
Migraine Patient c/o 10 migraine. PRN Imitrex given with good relief. Patient states headache is "much better" and stated her pain is 2/10.
[2016-05-18 16:41] VITALS: BP 179/67; PULSE 60; RESP 18; O2SAT 96
--- NOTE | 2016-05-18 18:30 | PROG NOTE ---
[address] [address] PROGRESS NOTE PATIENT: WILY SOLANO : 1950 MR#: [id number] ADMIT: 05/15/2016 JOB ID: [id number] DATE: 05/18/2016 REASON FOR FOLLOWUP: Recurrent C. difficile. INTERVAL HISTORY: Over the night, the patient has had more of her nausea, as well as some vomiting, but in general that problem seems to be slightly better. She has had no fevers, chills, sweats, or cough. She notes her diarrhea is rapidly ending and she is very happy about that. PHYSICAL EXAMINATION: Reveals an afebrile woman, temp 36.6, pulse 62, respiratory rate 16, blood pressure 159/85. She is saturating well on room air and in no acute distress. Oral cavity is unremarkable. Lungs reasonably clear. Abdomen soft and nontender. No skin rash. LABORATORIES: Include a white count of 8500, creatinine steadily coming down from a peak of 2.85. It is already down to 0.88. No new cultures are available. Recall that her urine grew Klebsiella but it was very uncertain as to whether or not she had a urinary tract infection. Stool was also positive for C diff. IMPRESSION: This is yet another recurrence of Clostridium difficile in this unfortunate woman with history of recurrent urinary tract infections and Clostridium difficile. I doubt that she really has much going on in terms of Klebsiella urinary tract infection and, in fact, she has already received three days or so of tigecycline which should be adequate to treat Klebsiella cystitis. She is currently receiving oral vancomycin for Clostridium difficile and that seems to be going fairly well as her kidneys have substantially recovered and the patient is feeling overall improved with resolution of diarrhea. RECOMMENDATIONS: 1. No more tigecycline. 2. Continue with the vancomycin and will figure on an eight-week tapering course with the dose to be 250 q.i.d. for two weeks, then 125 b.i.d. for two weeks, 125 once a day for two weeks and 125 every other day for two weeks. 3. The patient can probably be discharged tomorrow. I once again discussed with her the possible need for fecal transplant, especially if she should have any more C. diff episodes.
[2016-05-18 20:35] VITALS: BP 152/77; PULSE 58; RESP 20; O2SAT 98
[2016-05-18 23:36] VITALS: PULSE 61; RESP 18; O2SAT 96
--- NOTE | 2016-05-19 00:08 | NUR ---
Pain Pt reports lower abd pain of a 7. Given 2 tylenol tablets. Assured the pt that I would bring in her dilaudid at 0030. Pt agrees to this plan. No nausea. Will cont to monitor
[2016-05-19] MEDS: HYDROmorphone 1 mg/mL Inj IVPUSH PRN ×3 (00:29→16:01)
[2016-05-19] MEDS: MetoCLOpramide 5 mg/mL 2 mL Inj IVPUSH PRN ×2 (02:17→16:00)
[2016-05-19] MEDS: Vancomycin 250 mg Oral Capsule PO SCH ×4 (02:17→22:22)
[2016-05-19 02:23] VITALS: BP 178/70; PULSE 62; RESP 20; O2SAT 98
[2016-05-19 04:41] VITALS: BP 163/63; PULSE 60; RESP 18; O2SAT 95
[2016-05-19 05:26] LABS: Magnesium 1.7 mg/dL (1.6-2.6)
[2016-05-19] MEDS: Ondansetron 8 mg ODT Tablet PO PRN (07:31)
--- NOTE | 2016-05-19 08:46 | PROG NOTE ---
[address] [address] PROGRESS NOTE PATIENT: WILY SOLANO : 1950 MR#: [id number] ADMIT: 05/15/2016 JOB ID: [id number] DATE: 05/19/2016 INFECTIOUS DISEASE FOLLOW UP NOTE: REASON FOR FOLLOWUP: Recurrent C difficile colitis. INTERVAL HISTORY: Today, the patient has taken a step back. She reports she has abdominal cramps, diffuse abdominal pain and dry heaves. She denies any more diarrhea and states she has no fevers, chills, sore throat, or dysuria. No pulmonary symptoms at all. PHYSICAL EXAMINATION: Temperature 36.6, pulse 60, respiratory rate 18, blood pressure 163/63, saturating well on room air. She is in some mild distress as her face is flushed and she appears uncomfortable. Her mental status is clear. Oral cavity negative. Lungs clear. Abdomen with decreased bowel tones and diffuse mild tenderness throughout all four quadrants. No skin rash is noted. LABORATORIES: Include a white count which is completely normal now at 8500, creatinine which has completely normalized at 0.89, magnesium 1.7. Potassium 4.5. LFTs were normal a couple days ago and have not been repeated. Urine had grown Klebsiella, which we treated with a few days of tigecycline so as not to worsen her C. difficile. The tigecycline has now been off for more than 24 hours. Stool, of course, was positive for C difficile. IMPRESSION: This is one in a series of brief C difficile recurrences in this unfortunate woman. Whether or not she had a true Klebsiella UTI is unclear but I tend to doubt it and it has already been treated for a few days and therapy has been stopped. At this point, she seems well enough to go home except for her continued abdominal cramps, loss of appetite and nausea with some vomiting. The etiology of this is unclear. Earlier I would I thought it might be due to tigecycline toxicity but that has been completed for quite some time and I think we will need to cautiously watch her until her nausea and vomiting resolve before discharge. RECOMMENDATIONS: 1. Will continue with vancomycin. At the time of discharge she should be sent out on a dose of 125 4x daily for two weeks, then 125 b.i.d. for two weeks, then 125 once a day for two weeks and then 125 every other day for at least two more weeks. 2. I will see the patient in followup in my clinic on June 03 if she is discharged today or early tomorrow. 3. Otherwise ID will continue to follow her in the hospital though I am as of right now, uncertain as to what the cause of her abdominal symptoms are given the normalization in her white count, creatinine and resolution of her diarrhea. 4. Should the patient's abdominal symptoms worsen, a KUB or a CT of the abdomen might be indicated looking for toxic megacolon but that seems quite unlikely in this nontoxic woman.
[2016-05-19 08:50] VITALS: BP 176/67; PULSE 61; RESP 17; O2SAT 95
[2016-05-19] MEDS: oxyCODONE-Acetamin 10-325 mg Tablet PO PRN ×3 (08:59→22:31)
[2016-05-19] MEDS: MeTOProlol XL 25 mg ER24 Tablet PO SCH ×2 (08:59→22:22)
[2016-05-19] MEDS: DULoxetine 30 mg DR Capsule PO SCH (08:59)
[2016-05-19] MEDS: Pantoprazole 40 mg ER24 Tablet PO SCH ×2 (08:59→22:23)
[2016-05-19] MEDS: Heparin 5,000 Unit/mL Inj SUBQ SCH ×2 (08:59→16:00)
--- NOTE | 2016-05-19 10:53 | PCM.PNNEPH ---
Subjective Date of Service May 19, 2016 Subjective Continues to have nausea/vomiting but overall better. Loose BM this morning x2. improved appetite. Exam Vital Signs Vital Sign - Last Date Time Temp Pulse Resp B/P Pulse Ox O2 Delivery O2 Flow Rate FiO2 05/19/16 08:50 36.4 61 17 176/67 95 Room Air 05/17/16 15:52 2.00 Intake and Output 05/18/16 05/18/16 05/19/16 Cumulative From/Thru 15:00 23:00 07:00 05/15/16 09:00 - 05/19/16 06:51 Intake Total 769 ml 600 ml 565 ml 96659 ml Output Total 600 ml 325 ml 5692 ml Balance 769 ml 0 ml 240 ml 4646 ml Intake Oral 600 ml 3420 ml IV Total 769 ml 565 ml 6918 ml Output Urine Total 600 ml 325 ml 5625 ml Urine/Stool Mix 7 ml Emesis 60 ml # Bowel Movements 3 Exam GENERAL: The patient in no apparent distress, and alert and oriented x3. HEENT: Head is normocephalic and atraumatic. Extraocular muscles are intact. NECK: Supple, no elevation of JVD, No carotid bruits. No lymphadenopathy or thyromegaly. LUNGS: Decreased air entry bilaterally, no wheezing or rhonchi HEART: Normal S1/S2, Regular rate and rhythm, no murmurs, rubs or gallops. ABDOMEN: Soft, diffuse tenderness mainly on the lower abdomen, no rebound . Positive bowel sounds. No hepatosplenomegaly was noted. EXTREMITIES: Without any cyanosis, clubbing, rash, lesions or edema. SKIN: multiple ecchymosis noted on lower abdominal wall. Lab and Diagnostics Result Diagram: 05/17/16 0310 05/19/16 0445 X-Rays, CTs and MRIs CT ABDOMEN AND PELVIS WITHOUT CONTRAST 05/15 IMPRESSION: 1. No CT findings to suggest pseudomembranous (C. difficile) colitis. 2. Diverticulosis. No active diverticulitis. 3. Small hiatal hernia. 4. A duodenal diverticulum. 5. Right lower lobe pneumonia. Dictated by: Alonso Durán M.D. on 05/15/2016 at 12:39 Approved by: Alonso Durán M.D. on 05/15/2016 at 12:44 X-RAY CHEST ONE VIEW, PORTABLE 05/15 IMPRESSION: Right upper and lower lobe infiltrates suspicious for pneumonia. Recommend followup to resolution. Dictated by: Alonso Durán M.D. on 05/15/2016 at 10:42 Approved by: Alonso Durán M.D. on 05/15/2016 at 10:43 Plan Impression 1. Acute kidney injury secondary to prerenal azotemia, resolved. 2. Recurrent C. difficile infection 3. Asymptomatic Klebsiella bacteriuria. 4. Hypertension. 5. Chronic asthma/COPD. 6. Hypomagnesemia. Plan: continue 0.45 NS 60 ml/hr until PO intake tolerated. resume lisinopril for her BP control. Destin Jefferson MD May 19, 2016 10:53
[2016-05-19 12:54] VITALS: BP 185/72; PULSE 62; RESP 15; O2SAT 97
--- NOTE | 2016-05-19 13:12 | PCM.PNMED ---
Subjective Date of Service May 19, 2016 Subjective Emesis and diarrhea this AM as well as abdomen cramping. No fevers, dysuria, cough or dyspnea. No rectal blood. Some weakness. Exam Vital Signs Vital Sign - Last Date Time Temp Pulse Resp B/P Pulse Ox O2 Delivery O2 Flow Rate FiO2 05/19/16 12:54 36.5 62 15 185/72 97 05/19/16 08:50 Room Air 05/17/16 15:52 2.00 Intake and Output 05/18/16 05/18/16 05/19/16 Cumulative From/Thru 15:00 23:00 07:00 05/15/16 09:00 - 05/19/16 06:51 Intake Total 769 ml 600 ml 565 ml 63546 ml Output Total 600 ml 325 ml 5692 ml Balance 769 ml 0 ml 240 ml 4646 ml Intake Oral 600 ml 3420 ml IV Total 769 ml 565 ml 6918 ml Output Urine Total 600 ml 325 ml 5625 ml Urine/Stool Mix 7 ml Emesis 60 ml # Bowel Movements 3 Exam Alert and oriented, fluent speech Anicteric sclera Lungs clear, normal effort heart regular, no murmur Abdomen soft, NT No edema. No rash IVs and Medications Medications Reviewed: Medications were reviewed in detail Lab and Diagnostics Result Diagram: 05/17/16 0310 05/19/16 0445 X-Rays, CTs and MRIs CT ABDOMEN AND PELVIS WITHOUT CONTRAST 05/15 IMPRESSION: 1. No CT findings to suggest pseudomembranous (C. difficile) colitis. 2. Diverticulosis. No active diverticulitis. 3. Small hiatal hernia. 4. A duodenal diverticulum. 5. Right lower lobe pneumonia. Dictated by: Alonso Durán M.D. on 05/15/2016 at 12:39 Approved by: Alonso Durán M.D. on 05/15/2016 at 12:44 X-RAY CHEST ONE VIEW, PORTABLE 05/15 IMPRESSION: Right upper and lower lobe infiltrates suspicious for pneumonia. Recommend followup to resolution. Dictated by: Alonso Durán M.D. on 05/15/2016 at 10:42 Approved by: Alonso Durán M.D. on 05/15/2016 at 10:43 Assessment & Plan Graciela Ibarra is a 65 year old female with Diabetes, Hypertension, Hyperlipidemia, recurrent UTI with recent bout of C difficile colitis who presents to [facility] emergency department complaining of abdominal pain 1. CDT colitis and diarrhea (PCR positive). POA. Discontinued Tygacil 05/17 . Will continue PO vancomycin. Patient may be able to discharge Wed. See Dr Johnson plan for slow vanco taper and follow up. 2. Acute with recurrent Urinary tract infections. Present on admission. Klebsiella pansensitive except ampicillin. - Should have been treated with Tygacil, recheck UA. No further ABx. 3. Acute Kidney Injury. Present on admission. Resolved with hydration. - suspect pre renal azotemia due to hypovolemia - Nephrology consulted, this is stable. Continue half normal saline. 4 Possible Community acquired pneumonia. Present on admission. Resolved. With vomiting, aspiration could be possible. Patient denies any coughing but the infiltrates was seen on Chest CT - should be covered with Tygacil as completed. - Blood cultures x 2 (negative). No changes today. No further ABx 5 Acute Hypotension. Resolved with hydration. 7 Chronic COPD/Asthma No signs of acute exacerbation - continuing Dulera, Ipratropium and Albuterol PRN - continuing Singular daily Add Duonebs PRN. 8 Chronic pain syndrome with narcotic dependence - continue outpatient pain regimen - Acetaminophen as needed for mild pain/fever/headache - Bowel regimen as needed - Antiemetic as needed Patient admitted under inpatient status with expected length of stay > 2 midnights for severity of present symptoms, complexities of treatment plan and risk for adverse event . Pain Evaluation: Adequate Pain Control Resuscitation Status: CPR: Attempt Resuscitation Time spent 30 min Kris Donohue MD May 19, 2016 13:12
--- NOTE | 2016-05-19 16:36 | NUR ---
Nausea/Retching/Diarrhea She has had nausea throughout the day with some dry heaving this morning which did not produce any emesis. Around noon she started having diarrhea again and has had at least two episodes today. She was very distraught about this new development and began crying as she explained how she wouldn't be able to go home because she was having diarrhea again. Staff listened to her and assured her it was okay to cry. Care continues.
[2016-05-19 16:54] VITALS: BP 145/63; PULSE 57; RESP 17; O2SAT 96
[2016-05-19 22:16] VITALS: BP 139/58; PULSE 63; RESP 22; O2SAT 96
[2016-05-20] MEDS: Heparin 5,000 Unit/mL Inj SUBQ SCH ×2 (00:46→09:43)
[2016-05-20 01:18] VITALS: BP 163/67; PULSE 62; RESP 20; O2SAT 97
[2016-05-20] MEDS: HYDROmorphone 1 mg/mL Inj IVPUSH PRN (01:23)
[2016-05-20] MEDS: MetoCLOpramide 5 mg/mL 2 mL Inj IVPUSH PRN (01:55)
--- NOTE | 2016-05-20 02:20 | NUR ---
Transfer of Care/Pain/Nausea Pt transferred to [facility] [place] room 247 at around 0130, report to Ricardo Webb RN. Vitals stable at transfer, BP elevated but pt treated for pain just prior to transfer. Pt transferred with her belongings including her home walker and was transferred via wheelchair on RA and in no distress. During shift prior to transfer pt was treated w/ Percocet for 8/10 abdominal/back pain, Sumatriptan for headache, and PO Reglan for nausea. Pt reported effectiveness w/ sumatriptan and was able to sleep for about 2 hours w/out further c/o of nausea/pain after Percocet and Reglan.
[2016-05-20] MEDS: oxyCODONE-Acetamin 10-325 mg Tablet PO PRN ×3 (02:30→13:40)
[2016-05-20] MEDS: Vancomycin 250 mg Oral Capsule PO SCH ×3 (03:52→13:39)
--- NOTE | 2016-05-20 04:40 | NUR ---
Transfer to [facility] [place] Pt arrived to [place] [address] at 0130 via peter clement/ Aleena MILES. Pt ambulates independently and is a&ox3. Pt oriented to new room, bathroom, call light. Pt is comfortable and adjusting well.
[2016-05-20 06:10] LABS: Mean Corpuscular Hemoglobin 28.2 pg (27.0-35.0); Mean Corpuscular Volume 87.5 fL (81-100)
[2016-05-20 06:22] VITALS: BP 134/56; PULSE 54; RESP 16; O2SAT 95
[2016-05-20 09:30] VITALS: BP 163/79; PULSE 53; PULSE 56; RESP 20; O2SAT 94
[2016-05-20] MEDS: DULoxetine 30 mg DR Capsule PO SCH (09:43)
[2016-05-20] MEDS: Pantoprazole 40 mg ER24 Tablet PO SCH (09:44)
[2016-05-20] MEDS: MeTOProlol XL 25 mg ER24 Tablet PO SCH (09:44)
--- NOTE | 2016-05-20 10:53 | PCM.DIMED ---
Discharge Instructions Date of Service May 20, 2016 Dates of Hospitalization May 15, 2016 at 14:58 Discharge Diagnosis Discharge Diagnosis Acute C difficile colitis acute/chronic UTI - klebsiella CORTES - prerenal Medication Instructions Will continue with oral vancomycin. At the time of discharge, please continue 125mg 4x daily for two weeks, then 125mg twice daily for two weeks, then 125mg once a day for two weeks and then 125 every other day for at least two more weeks. Test Results PROCEDURE: US RENAL SONOGRAM INDICATIONS: cortes TECHNIQUE: Real-time scanning was performed of the kidneys and bladder, with image documentation. COMPARISON: None. FINDINGS: Kidneys: Kidneys are normal in size. Right kidney measures 9.7 cm long; left kidney measures 10.1 cm long. Right renal cortical thickness is 0.7 cm; left renal cortical thickness is 1.0 cm. Renal cortical echotexture is normal. No hydronephrosis or nephrolithiasis. No suspicious solid mass lesions. Bladder: Pre-void bladder volume is 116 mL. Post-void residual is 0 mL. Pre- void images demonstrate no intraluminal masses or stones. On pre-void images, neither ureteral jets are noted with color Doppler interrogation. (Of note, ureteral jets may not be detectable in up to 25% of cases due to insufficient differences in specific gravity between ureteral and bladder urine). Miscellaneous: No free pelvic fluid. IMPRESSION: 1. Bilateral renal cortical thinning. Dictated by: Cameron Reyes RR Interpreted: Saima Smyth MD on 05/15/2016 at 16:27 Transcribed by: AUDREY on 05/15/2016 at 16:28 CT A/P OCEDURE: CT ABDOMEN AND PELVIS WITHOUT CONTRAST ([id number]) INDICATIONS: abdominal pain. ? c diff colitis TECHNIQUE: After the administration of oral contrast, 5 mm thick sections acquired from the diaphragms to the symphysis. 5 mm coronal and sagittal reformats were performed. For radiation dose reduction, the following was used: automated exposure control, adjustment of mA and/or kV according to patient size. COMPARISON: [facility], CR, XR CHEST 1VW (PORTABLE), 05/15/2016, 10: 19. [facility], CT, CT ABD PELVIS W CON, 12/25/2015, 18:41. FINDINGS: Image quality: Excellent. ABDOMEN: Lung bases: Patchy infiltrate in the lung base suspicious for pneumonia. Heart size is normal. Small hiatal hernia noted. Solid organs: Liver and spleen are normal in size. Gallbladder is surgically absent. Pancreas is normal in size. No adrenal nodules. Both kidneys are normal in size, without hydronephrosis or nephrolithiasis. Peritoneum and bowel: There is a duodenal diverticulum arising from the posterior wall of the horizontal portion of the duodenum. There are scattered colonic diverticula. Bowel loops demonstrate normal wall thickness and caliber. No free fluid or air. Nodes and vessels: No retroperitoneal or mesenteric adenopathy by size criteria. Aorta and inferior vena cava are normal in size. Miscellaneous: No ventral hernias. PELVIS: Genitourinary: Bladder wall thickness is normal. Miscellaneous: No inguinal hernias or adenopathy. Bones: No suspicious bony lesions. No vertebral body compression fractures. IMPRESSION: 1. No CT findings to suggest pseudomembranous (C. difficile) colitis. 2. Diverticulosis. No active diverticulitis. 3. Small hiatal hernia. 4. A duodenal diverticulum. 5. Right lower lobe pneumonia. Diet Heart Healthy Activity Home Health Phyical Therapy, Other (home health PT, nursing, and a bath aide will be ordered) Call your provider Fever or Chills, Shortness of breath, Vomitting, Excessive diarrhea Patient Instructions You have and will continue treatment for C Difficile diarrhea. Please continue with oral vancomycin at a dose of 125mg 4x daily for two weeks, then 125mg twice daily for two weeks, then 125mg once a day for two weeks and then 125 every other day for at least two more weeks. Follow-up plan Please follow up with Dr. Johnson on the - an appt has been made for you. Please call to confirm time Follow-up Provider: Arturo Bullock MD Follow-up with PCP in: 1 week (please make an appt) Provider: Donal Johnson MD Follow-up in: 2 weeks (colbyz call to confirm appt) Shaan Heaton DO May 20, 2016 10:53
[2016-05-20] MEDS ORDERED: VANC125C3 PO (10:58)
--- NOTE | 2016-05-20 11:06 | PCM.DC.MED ---
Discharge Summary Date of Service May 20, 2016 Dates of Hospitalization Date of Hospital Admission May 15, 2016 at 14:58 Date of Discharge: May 20, 2016 Providers: Admitting Physician: Sarath Welsh MD Primary Care Physician: Arturo Bullock MD Attending Physician: Sarath Welsh MD Diagnosis at Time of Discharge Diagnosis at Time of Discharge Acute C difficile colitis acute/chronic UTI - klebsiella CORTES - prerenal Consultations ID- Dr. Johnson Procedures XRay, CTs & MRIs Medication Instructions Will continue with oral vancomycin. At the time of discharge, please continue 125mg 4x daily for two weeks, then 125mg twice daily for two weeks, then 125mg once a day for two weeks and then 125 every other day for at least two more weeks. Test Results PROCEDURE: US RENAL SONOGRAM INDICATIONS: cortes TECHNIQUE: Real-time scanning was performed of the kidneys and bladder, with image documentation. COMPARISON: None. FINDINGS: Kidneys: Kidneys are normal in size. Right kidney measures 9.7 cm long; left kidney measures 10.1 cm long. Right renal cortical thickness is 0.7 cm; left renal cortical thickness is 1.0 cm. Renal cortical echotexture is normal. No hydronephrosis or nephrolithiasis. No suspicious solid mass lesions. Bladder: Pre-void bladder volume is 116 mL. Post-void residual is 0 mL. Pre- void images demonstrate no intraluminal masses or stones. On pre-void images, neither ureteral jets are noted with color Doppler interrogation. (Of note, ureteral jets may not be detectable in up to 25% of cases due to insufficient differences in specific gravity between ureteral and bladder urine). Miscellaneous: No free pelvic fluid. IMPRESSION: 1. Bilateral renal cortical thinning. Dictated by: Cameron Reyes RR Interpreted: Saima Smyth MD on 05/15/2016 at 16:27 Transcribed by: AUDREY on 05/15/2016 at 16:28 CT A/P OCEDURE: CT ABDOMEN AND PELVIS WITHOUT CONTRAST ([id number]) INDICATIONS: abdominal pain. ? c diff colitis TECHNIQUE: After the administration of oral contrast, 5 mm thick sections acquired from the diaphragms to the symphysis. 5 mm coronal and sagittal reformats were performed. For radiation dose reduction, the following was used: automated exposure control, adjustment of mA and/or kV according to patient size. COMPARISON: [facility], CR, XR CHEST 1VW (PORTABLE), 05/15/2016, 10: 19. [facility], CT, CT ABD PELVIS W CON, 12/25/2015, 18:41. FINDINGS: Image quality: Excellent. ABDOMEN: Lung bases: Patchy infiltrate in the lung base suspicious for pneumonia. Heart size is normal. Small hiatal hernia noted. Solid organs: Liver and spleen are normal in size. Gallbladder is surgically absent. Pancreas is normal in size. No adrenal nodules. Both kidneys are normal in size, without hydronephrosis or nephrolithiasis. Peritoneum and bowel: There is a duodenal diverticulum arising from the posterior wall of the horizontal portion of the duodenum. There are scattered colonic diverticula. Bowel loops demonstrate normal wall thickness and caliber. No free fluid or air. Nodes and vessels: No retroperitoneal or mesenteric adenopathy by size criteria. Aorta and inferior vena cava are normal in size. Miscellaneous: No ventral hernias. PELVIS: Genitourinary: Bladder wall thickness is normal. Miscellaneous: No inguinal hernias or adenopathy. Bones: No suspicious bony lesions. No vertebral body compression fractures. IMPRESSION: 1. No CT findings to suggest pseudomembranous (C. difficile) colitis. 2. Diverticulosis. No active diverticulitis. 3. Small hiatal hernia. 4. A duodenal diverticulum. 5. Right lower lobe pneumonia. Brief History Graciela Ibarra is a 65 year old female with Diabetes, Hypertension, Hyperlipidemia, recurrent UTI with recent bout of C difficile colitis who presents to [facility] emergency department complaining of abdominal pain. Located in epigastrium (7/10 intensity) with some radiation to the chest. Took Protonix but not effective in controlling pain. Associated symptoms includes nausea and vomiting inability to hold any food down. Also having persistent diarrhea. She has been sick for about a week. She reports that current symptoms do not feel like past c difficile infections, describing that with her last diarrhea was watery and came without warning. Current episode is not as severe. She was evaluated at the GI clinic and noted to have hypotension and was referred to the Emergency department. She has recurrent exposure to antibiotics due to recurrent urinary tract infections. She is well known to Dr Johnson Case discussed with Dr Nice, CT ruled out pseudomembranous colitis. She spoke to Dr Johnson who recommended admission for fluids and Tygacil IV antibiotics Hospital Course Graciela Ibarra is a 65 year old female with Diabetes, Hypertension, Hyperlipidemia, recurrent UTI with recent bout of C difficile colitis who presents to [facility] emergency department complaining of abdominal pain 1. CDT colitis and diarrhea (PCR positive). POA. Discontinued Tygacil 05/17 . Will continue PO vancomycin. Patient may be able to discharge Wed. See Dr Johnson plan for slow vanco taper and follow up. 2. Acute with recurrent Urinary tract infections. Present on admission. Klebsiella pansensitive except ampicillin. - Should have been treated with Tygacil, recheck UA. No further ABx. 3. Acute Kidney Injury. Present on admission. Resolved with hydration. - suspect pre renal azotemia due to hypovolemia - Nephrology consulted, this is stable. Continue half normal saline. 4 Possible Community acquired pneumonia. Present on admission. Resolved. With vomiting, aspiration could be possible. Patient denies any coughing but the infiltrates was seen on Chest CT - should be covered with Tygacil as completed. - Blood cultures x 2 (negative). No changes today. No further ABx 5 Acute Hypotension. Resolved with hydration. 7 Chronic COPD/Asthma No signs of acute exacerbation - continuing Dulera, Ipratropium and Albuterol PRN - continuing Singular daily Add Duonebs PRN. 8 Chronic pain syndrome with narcotic dependence - continue outpatient pain regimen - Acetaminophen as needed for mild pain/fever/headache - Bowel regimen as needed - Antiemetic as needed Patient admitted under inpatient status with expected length of stay > 2 midnights for severity of present symptoms, complexities of treatment plan and risk for adverse event . Exam Vital Signs (Last) Date Time Temp Pulse Resp B/P Pulse Ox O2 Delivery O2 Flow Rate FiO2 05/20/16 09:30 37.0 53 20 163/79 94 Room Air 05/17/16 15:52 2.00 Exam Alert and oriented, fluent speech Anicteric sclera Lungs clear, normal effort heart regular, no murmur, no r/c Abdomen soft, NT, no masses No edema, no ulcerations No rash mood/affect normal no focal neurologic deficits cn 2-12 GI Test 05/15/16 09:25 05/15/16 11:01 05/15/16 20:25 05/16/16 18:50 Erythrocyte Sedimentation Rate 16mm/hr (0-40) Lactic Acid Level 1.8mmol/L (0.4-2.0) Troponin T < 0.010ug/L (0.0-0.011) Pro-B-Type Natriuretic Peptide 125.5pg/mL (0-287) Procalcitonin 0.17ng/mL (0.00-0.08) Anti-Nuclear Antibody Screen Negative (Negative) Urine Color Yellow (YELLOW) Urine Appearance Hazy (CLEAR,HAZY) Urine pH 5.0 (5.0-8.0) Urine Specific Eaton 1.025 (1.003-1.035) Urine Protein Negativemg/dL (NEG,TRACE) Urine Glucose (UA) Negativemg/dL (NEGATIVE) Urine Ketones Tracemg/dL (NEGATIVE) Urine Occult Blood Negative (NEGATIVE) Urine Nitrite Negative (NEGATIVE) Urine Bilirubin Negative (NEGATIVE) Urine Urobilinogen Normalmg/dL (NORMAL) Urine Leukocyte Esterase Small (NEGATIVE) Urine RBC 0-2/hpf (0-2) Urine WBC 11-50/hpf (0-5) Urine Epithelial Cells Occasional/hpf (NONE-MOD) Urine Crystals None seen (NONE SEEN) Urine Bacteria Many/hpf (NONE-FEW) Urine Hyaline Casts Occasional/lpf (NONE) Urine Granular Casts None seen (NONE SEEN) Urine Waxy Casts None seen (NONE SEEN) Urine Red Blood Cell Casts None seen (NONE SEEN) Urine White Blood Cell Casts None seen (NONE SEEN) Urine Mucus Present (None Seen) Urine Trichomonas None seen (NONE SEEN) Urine Yeast None (NONE SEEN) Urinalysis Comment None Urine Culture Reflexed Indicated Urine Legionella pneumophilia Ag Negative (Negative) Hold Urine Received (Received) Urine Random Potassium 17.4mEq/L Test 05/17/16 03:10 05/19/16 04:45 05/20/16 05:45 Neutrophils (%) (Auto) 56.7% (40-74) Lymphocytes (%) (Auto) 32.2% (14-46) Monocytes (%) (Auto) 9.8% (4-12) Eosinophils (%) (Auto) 0.6% (0-5) Basophils (%) (Auto) 0.2% (0-3) Magnesium Level 1.7mg/dL (1.6-2.6) White Blood Count 6.7th/mm3 (3.8-10.1) Red Blood Count 4.64mil/mm3 (3.90-5.20) Hemoglobin 13.1g/dL (12.0-15.6) Hematocrit 40.6% (35.0-46.0) Mean Corpuscular Volume 87.5fL (81-100) Mean Corpuscular Hemoglobin 28.2pg (27.0-35.0) Mean Corpuscular Hemoglobin Concent 32.3% (32.0-37.0) Red Cell Distribution Width 14.3% (12.3-15.4) Platelet Count 289bil/L (150-400) Sodium Level 141mEq/L (134-144) Potassium Level 4.3mEq/L (3.5-5.2) Chloride Level 106mEq/L (97-108) Carbon Dioxide Level 22mmol/L (18-29) Blood Urea Nitrogen 14mg/dL (8-27) Creatinine 1.05mg/dL (0.57-1.00) Estimat Glomerular Filtration Rate 76mL/min (>59) Glucose Level 103mg/dL (60-99) Calcium Level 9.0mg/dL (8.5-10.1) Total Bilirubin 0.3mg/dL (0.0-1.2) Aspartate Amino Transf (AST/SGOT) 14U/L (0-50) Alanine Aminotransferase (ALT/SGPT) 17U/L (0-32) Alkaline Phosphatase 63U/L (25-165) Total Protein 5.5g/dL (6.4-8.4) Albumin 3.3g/dL (3.4-5.0) Discharge Medications Discharge Medications Aspirin (Aspirin) 81 Mg Tablet 81 MG PO DAILY (Reported) Azelastine HCl (Azelastine HCl) 137 Mcg/0.137 Ml Windham.pump 2 SPRAY NASAL BID ( Reported) Cetirizine HCl (Zyrtec) 10 Mg Capsule 10 MG PO BID (Reported) Cranberry Conc/C/Bacill Coag (Cranberry Tablet) 1 Each Tablet 2 EACH PO QID ( Reported) Duloxetine (Duloxetine) 30 Mg Capsule.dr 30 MG PO DAILY (Reported) Estradiol (Estrace) 42.5 Gm Cream.appl 1 APPLIC VAGINAL Q2DAY (Reported) Fluticasone Propionate (Fluticasone Propionate Nasal) 16 Gm [place].susp 1 SPRAY NS HS (Reported) Fosfomycin Tromethamine (Monurol) 3 Gm Packet 3 GM PO [id number] (Reported) Lactobacillus Combination No.4 (Probiotic) 1 Each Capsule 2 EACH PO BID ( Reported) Lisinopril (Lisinopril) 10 Mg Tablet 10 MG PO DAILY (Reported) Metoprolol Tartrate (Metoprolol Tartrate) 25 Mg Tablet 12.5 MG PO BID (Reported ) Mometasone/Formoterol (Dulera 200 Mcg/5 Mcg Inhaler) 13 Gm Hfa.aer.ad 2 PUFF INHALATION BID (Reported) Montelukast (Singulair) 10 Mg Tablet 10 MG PO HS (Reported) Pantoprazole DR (Pantoprazole DR) 40 Mg Tablet.dr 40 MG PO BID (Reported) Pregabalin (Lyrica) 50 Mg Capsule 50 MG PO BID (Reported) Vancomycin (Vancomycin) 125 Mg Capsule 125 MG PO QID Prescribed by: KAYLEEN FERNANDEZ, DO As needed Albuterol HFA (Proair HFA) 8.5 Gm Hfa.aer.ad 2 PUFFS INHALATION Q4H PRN PRN For Shortness of Breath (Reported) Diclofenac Gel (Voltaren Gel) 100 Gm Tube 1 GM TOPICAL QID PRN PRN For Pain ( Reported) Ipratropium Salineno (Ipratropium Salineno 0.03% Nasal) 30 Ml [place]ham 2 SPRAY NASAL TID PRN PRN For Congestion (Reported) Ipratropium/Albuterol Sulfate (Iprat-Albut 0.5-3(2.5) mg/3 mL Inhalant Soln) 3 Ml Ampul.neb 3 ML IH Q6 PRN PRN For Shortness of Breath (Reported) Lidocaine HCl (Lidocaine HCl) 5 Ml Jel 1 APPLIC TOPICAL DAILY PRN PRN For Pain ( Reported) apply to feet Loperamide (Loperamide) 2 Mg Capsule 2 MG PO Q4H PRN PRN For Diarrhea or Loose Stool (Reported) Methocarbamol (Methocarbamol) 500 Mg Tablet 1-2 EACH PO BID PRN PRN For Spasm ( Reported) Nystatin (Nystatin) 1 Each Powder.ea. 1 APPLIC TOP BID PRN PRN For Itching ( Reported) Ondansetron ODT (Ondansetron ODT) 4 Mg Tab.rapdis 8 MG PO QID PRN PRN For Nausea (Reported) Sumatriptan Succinate (Sumatriptan Succinate) 100 Mg Tablet 100 MG PO BID PRN PRN Headache (Reported) oxyCODONE-Acetaminophen 10-325 mg (oxyCODONE-Acetaminophen 10-325 mg) 1 Each Tablet 1 EACH PO Q4H PRN PRN For Pain (Reported) Additional med instructions Will continue with oral vancomycin. At the time of discharge, please continue 125mg 4x daily for two weeks, then 125mg twice daily for two weeks, then 125mg once a day for two weeks and then 125 every other day for at least two more weeks. Followup Plan Disposition: home with home health - [facility]: PT/RN/ and bathing assistance Follow-up plan Please follow up with Dr. Johnson on the - an appt has been made for you. Please call to confirm time Discharge Diet: Heart Healthy Discharge Activity: Home Health Phyical Therapy, Other (home health PT, nursing , and a bath aide will be ordered) Patient Instructions You have and will continue treatment for C Difficile diarrhea. Please continue with oral vancomycin at a dose of 125mg 4x daily for two weeks, then 125mg twice daily for two weeks, then 125mg once a day for two weeks and then 125 every other day for at least two more weeks. Follow-up Provider: Arturo Bullock MD Follow-up with PCP in: 1 week (please make an appt) Provider: Donal Johnson MD Follow-up in: 2 weeks (plz call to confirm appt) Time spent 40 minutes spent with eval and mgmt including coordination of care Attending Statement home with home health as above copies to: Arturo Bullock MD, David DO May 20, 2016 11:01
[2016-05-20] MEDS ORDERED: LISI10TA PO (11:09)
[2016-05-20] MEDS ORDERED: METO5TAB78 PO (11:09)
--- NOTE | 2016-05-20 11:50 | PCM.PNNEPH ---
Subjective Date of Service May 20, 2016 Subjective Pt reported that she has had elevated BP during C.diff episode over the past year. Metoprolol and lisinopril were started 2-3 wks ago. She was also taking K supplement. Today, she is feeling better. No acute issue overnight. Exam Vital Signs Vital Sign - Last Date Time Temp Pulse Resp B/P Pulse Ox O2 Delivery O2 Flow Rate FiO2 05/20/16 09:30 37.0 56 20 163/79 94 Room Air 05/17/16 15:52 2.00 Intake and Output 05/19/16 05/19/16 05/20/16 Cumulative From/Thru 15:00 23:00 07:00 05/15/16 09:00 - 05/20/16 06:22 Intake Total 733 ml 17379 ml Output Total 200 ml 5892 ml Balance 533 ml 5179 ml Intake Oral 400 ml 3820 ml IV Total 333 ml 7251 ml Output Urine Total 200 ml 5825 ml Urine/Stool Mix 7 ml Emesis 60 ml # Bowel Movements 3 Exam GENERAL: The patient in no apparent distress, and alert and oriented x3. HEENT: Head is normocephalic and atraumatic. Extraocular muscles are intact. NECK: Supple, no elevation of JVD, No carotid bruits. No lymphadenopathy or thyromegaly. LUNGS: Decreased air entry bilaterally, no wheezing or rhonchi HEART: Normal S1/S2, Regular rate and rhythm, no murmurs, rubs or gallops. ABDOMEN: Soft, diffuse tenderness mainly on the lower abdomen, no rebound . Positive bowel sounds. No hepatosplenomegaly was noted. EXTREMITIES: Without any cyanosis, clubbing, rash, lesions or edema. SKIN: multiple ecchymosis noted on lower abdominal wall. Lab and Diagnostics Result Diagram: 05/20/1645 05/20/16544 X-Rays, CTs and MRIs Medication Instructions Will continue with oral vancomycin. At the time of discharge, please continue 125mg 4x daily for two weeks, then 125mg twice daily for two weeks, then 125mg once a day for two weeks and then 125 every other day for at least two more weeks. Test Results PROCEDURE: US RENAL SONOGRAM INDICATIONS: linda TECHNIQUE: Real-time scanning was performed of the kidneys and bladder, with image documentation. COMPARISON: None. FINDINGS: Kidneys: Kidneys are normal in size. Right kidney measures 9.7 cm long; left kidney measures 10.1 cm long. Right renal cortical thickness is 0.7 cm; left renal cortical thickness is 1.0 cm. Renal cortical echotexture is normal. No hydronephrosis or nephrolithiasis. No suspicious solid mass lesions. Bladder: Pre-void bladder volume is 116 mL. Post-void residual is 0 mL. Pre- void images demonstrate no intraluminal masses or stones. On pre-void images, neither ureteral jets are noted with color Doppler interrogation. (Of note, ureteral jets may not be detectable in up to 25% of cases due to insufficient differences in specific gravity between ureteral and bladder urine). Miscellaneous: No free pelvic fluid. IMPRESSION: 1. Bilateral renal cortical thinning. Dictated by: Cameron GE Interpreted: Saima Smyth MD on 05/15/2016 at 16:27 Transcribed by: AUDREY on 05/15/2016 at 16:28 CT A/P OCEDURE: CT ABDOMEN AND PELVIS WITHOUT CONTRAST ([id number]) INDICATIONS: abdominal pain. ? c diff colitis TECHNIQUE: After the administration of oral contrast, 5 mm thick sections acquired from the diaphragms to the symphysis. 5 mm coronal and sagittal reformats were performed. For radiation dose reduction, the following was used: automated exposure control, adjustment of mA and/or kV according to patient size. COMPARISON: [facility], CR, XR CHEST 1VW (PORTABLE), 05/15/2016, 10: 19. [facility], CT, CT ABD PELVIS W CON, 12/25/2015, 18:41. FINDINGS: Image quality: Excellent. ABDOMEN: Lung bases: Patchy infiltrate in the lung base suspicious for pneumonia. Heart size is normal. Small hiatal hernia noted. Solid organs: Liver and spleen are normal in size. Gallbladder is surgically absent. Pancreas is normal in size. No adrenal nodules. Both kidneys are normal in size, without hydronephrosis or nephrolithiasis. Peritoneum and bowel: There is a duodenal diverticulum arising from the posterior wall of the horizontal portion of the duodenum. There are scattered colonic diverticula. Bowel loops demonstrate normal wall thickness and caliber. No free fluid or air. Nodes and vessels: No retroperitoneal or mesenteric adenopathy by size criteria. Aorta and inferior vena cava are normal in size. Miscellaneous: No ventral hernias. PELVIS: Genitourinary: Bladder wall thickness is normal. Miscellaneous: No inguinal hernias or adenopathy. Bones: No suspicious bony lesions. No vertebral body compression fractures. IMPRESSION: 1. No CT findings to suggest pseudomembranous (C. difficile) colitis. 2. Diverticulosis. No active diverticulitis. 3. Small hiatal hernia. 4. A duodenal diverticulum. 5. Right lower lobe pneumonia. Plan Impression 1. Acute kidney injury secondary to prerenal azotemia, resolved. 2. Recurrent C. difficile infection 3. Asymptomatic Klebsiella bacteriuria. 4. Hypertension. 5. Chronic asthma/COPD. Plan: Per renal standpoint, she can be d/c'd home. I will work up for secondary HTN as OP. For now we will resume her BP meds (lisinopril 5 mg daily and metoprolol XL 12.5 mg BID). Pt will hold on KCL supplement. She will keep BP log. F/u with renal in 1-2 weeks. Destin Jefferson MD May 20, 2016 11:49
--- NOTE | 2016-05-20 14:17 | NUR ---
Social Work Note - Discharge: D/A: The Pt is a 65 y/o female that is now on day 6 of admission for acute renal failure, RLL pneumonia, and UTI. SW met with the Pt to explore discharge planning, Pt reports that she is hopeful that she will be discharged today. The Pt reports that she caregivers from [facility] who come to the home 3x/week (MON/WED/THURS) for about two hours a day. HH explored, Pt is homebound. HH list given, Pt reports having a history of HH services through [facility] in the past and is agreeable of their services again. Referral placed to [facility] (RN/PT/bath aid). F2F completed, waiting for [facility] brass pickler. Access given. [facility] to open on Wednesday, Pt to be informed. Pt to follow-up with MD Johnson on May at 2pm, Pt informed and agreeable to appointment. No other needs identified at this time by the Pt, SW to follow if needs arise. P: The Pt likely to discharge home today with [facility] (RN/PT/bath aid), to provide POV transportation. The Pt to follow-up with MD Johnson on May at 2pm. No other needs identified at this time by the Pt, SW to follow if needs arise. Nikki Springer, [employer]ING CAR OPERATOR [employer] Tiera Hummel MSW
--- NOTE | 2016-05-20 15:04 | NUR ---
Discharge Scripts sent with prior to DC. Clarified scripts with [facility] Reviewed DC instructions with patient and , stated understanding all belongings taken. Taken out in w/, by [facility], to home in private vehicle.
== END 2016-05-20 14:00 | disposition home health service (06) | DRG 371 ==
LOC: SED 08:50 → PCC 14:58 → MOC 05-20 01:33
PROVIDERS: ADMIT Hospitalist; ATTEND Hospitalist
DX: A04.7 Enterocolitis due to Clostridium difficile (principal); J18.9 Pneumonia, unspecified organism; N17.9 Acute kidney failure, unspecified; N39.0 Urinary tract infection, site not specified; F11.20 Opioid dependence, uncomplicated; I10 Essential (primary) hypertension; E78.5 Hyperlipidemia, unspecified; E11.9 Type 2 diabetes mellitus without complications; J44.9 Chronic obstructive pulmonary disease, unspecified; J45.909 Unspecified asthma, uncomplicated; Z87.891 Personal history of nicotine dependence; G89.4 Chronic pain syndrome; B96.1 Klebsiella pneumoniae [K. pneumoniae] as the cause of diseases classified elsewhere

== ENCOUNTER 2016-08-18 18:19 | Observation (INO) | payer MEDICARE, MEDICAID ==
[2016-08-18] VITALS (7 sets, daily range): BP systolic 100–161; BP diastolic 45–94; PULSE 63–99; RESP 15–24; O2SAT 95–99
[~2016-08-18] VITALS: Ht 157.5 cm; Wt 88.7 kg
[~2016-08-18 18:19] MED LIST changes: -AMOX-366 PO; -ASPI-1148 PO; -BISA-67 PO; +CETI10CA PO; +DICL100G8 TOPICAL; +FOSF3PAC PO; -HYDR-3740 PO; -KLO1T PO; -L.AC1CAP6 PO; +LACT1CAP67 PO; +LISI10TA PO; +METO25TA6 PO; +METO5TAB78 PO; -OMEP40CA36 PO; +OXYC-466 PO; +PANT40TA3 PO; -PHEN-773 PO; -POLY17PO6 PO; -POTA20TA16 PO; +ROB500 PO
[2016-08-18] MEDS ORDERED: 0.9% Sodium Chloride 1,000 ML IV ONE (18:29)
--- NOTE | 2016-08-18 18:29 | ED.REPORT ---
HPI-Neurologic Deficit Date of Service Aug 18, 2016 ED Provider: Dr. 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 Upon arrival by medics, the patient was initially completely unresponsive, pale, cool, diaphoretic, and could not squeeze her hands. She then began to gain consciousness and c/o left sided temper mill roller deficit, back pain and headache. En route to the ED, she slipped in and out of consciousness and would not maintain eye contact with medics. The pt takes 325 mg oxycodone 4-6 times a day. She is yawning in the room. Nursing Notes Stated Complaint: POSS STROKE Nursing Notes Reviewed: Yes Allergies: Coded Allergies: Sulfa (Sulfonamide Antibiotics) (Verified Allergy, Severe, Stop breathing , 08/18/16) ciprofloxacin (Verified Allergy, Severe, hives, 08/18/16) Pentazocine Lactate (Verified Allergy, Intermediate, 08/18/16) morphine (Verified Allergy, Intermediate, Shortness of Breath, 08/18/16) [place] Nut (Verified Allergy, Unknown, 08/18/16) NSAIDS (Non-Steroidal Anti-Inflamma (Verified Allergy, Unknown, GI BLEED, 08/18/16) Phenothiazines (Verified Allergy, Unknown, 08/18/16) prochlorperazine (Verified Allergy, Unknown, diarrhea, 08/18/16) propoxyphene (Verified Allergy, Unknown, 08/18/16) tree nut (Verified Allergy, Unknown, 08/18/16) Scheduled Aspirin (Aspirin) 81 Mg Tablet 81 MG PO DAILY Azelastine HCl (Azelastine HCl) 137 Mcg/0.137 Ml [place].pump 2 SPRAY NASAL BID Cetirizine HCl (Zyrtec) 10 Mg Capsule 10 MG PO BID Cranberry Conc/C/Bacill Coag (Cranberry Tablet) 1 Each Tablet 2 EACH PO QID Duloxetine (Duloxetine) 30 Mg Capsule.dr 30 MG PO DAILY Estradiol (Estrace) 42.5 Gm Cream.appl 1 APPLIC VAGINAL Q2DAY Fluticasone Propionate (Fluticasone Propionate Nasal) 16 Gm [place].susp 1 SPRAY NS HS Fosfomycin Tromethamine (Monurol) 3 Gm Packet 3 GM PO [id number] Lactobacillus Combination No.4 (Probiotic) 1 Each Capsule 2 EACH PO BID Lisinopril (Lisinopril) 10 Mg Tablet 5 MG PO DAILY Metoprolol Tartrate (Metoprolol Tartrate) 25 Mg Tablet 12.5 MG PO BID Mometasone/Formoterol (Dulera 200 Mcg/5 Mcg Inhaler) 13 Gm Hfa.aer.ad 2 PUFF INHALATION BID Montelukast (Singulair) 10 Mg Tablet 10 MG PO HS Pantoprazole DR (Pantoprazole DR) 40 Mg Tablet.dr 40 MG PO BID Pregabalin (Lyrica) 50 Mg Capsule 50 MG PO BID Vancomycin (Vancomycin) 125 Mg Capsule 125 MG PO QID Scheduled PRN Albuterol HFA (Proair HFA) 8.5 Gm Hfa.aer.ad 2 PUFFS INHALATION Q4H PRN PRN For Shortness of Breath Diclofenac Gel (Voltaren Gel) 100 Gm Tube 1 GM TOPICAL QID PRN PRN For Pain Ipratropium [place] (Ipratropium [place] 0.03% Nasal) 30 Ml [place] 2 SPRAY NASAL TID PRN PRN For Congestion Ipratropium/Albuterol Sulfate (Iprat-Albut 0.5-3(2.5) mg/3 mL Inhalant Soln) 3 Ml Ampul.neb 3 ML IH Q6 PRN PRN For Shortness of Breath Lidocaine HCl (Lidocaine HCl) 5 Ml Jel 1 APPLIC TOPICAL DAILY PRN PRN For Pain apply to feet Loperamide (Loperamide) 2 Mg Capsule 2 MG PO Q4H PRN PRN For Diarrhea or Loose Stool Methocarbamol (Methocarbamol) 500 Mg Tablet 1-2 EACH PO BID PRN PRN For Spasm Metoclopramide (Reglan) 5 Mg Tablet 5 MG PO QID PRN PRN For Nausea Nystatin (Nystatin) 1 Each Powder.ea. 1 APPLIC TOP BID PRN PRN For Itching Ondansetron ODT (Ondansetron ODT) 4 Mg Tab.rapdis 8 MG PO QID PRN PRN For Nausea Sumatriptan Succinate (Sumatriptan Succinate) 100 Mg Tablet 100 MG PO BID PRN PRN Headache oxyCODONE-Acetaminophen 10-325 mg (oxyCODONE-Acetaminophen 10-325 mg) 1 Each Tablet 1 EACH PO Q4H PRN PRN For Pain General Time Seen by Provider: 18:29 Chief Complaint Other (loss of consciousness) Hx Obtained From: Spouse, EMS Arrived By: Ambulance, Walk-in Sudden in Onset?: Yes Onset Occurred: Just prior to arrival Symptom Duration: Since onset Location: : Head Quality: Painful Recent Healthcare: No recent doctor visit, No recent hospitalization Similar Sx Previous: No Risk Factors NIH Stroke Scale Level of Consciousness: Alert and responsive (0) Ask Month & Age: Both questions right (0) Open/Close Eyes/Hand Kidney Puller: Performs both tasks (0) Horizontal EO Movements: None (0) Visual Estrada: No visual loss (0) Facial Palsy: Normal symmetry (0) Right Arm Motor Drift (10s): No drift 10 sec (0) Left Arm Motor Drift (10s): No drift 10 sec (0) Right Leg Motor Drift (5s): No drift 5 sec (0) Left Leg Motor Drift (5s): No drift 5 sec (0) Limb Ataxia FNF/Heel-Caba: No ataxia (0) Sensation (Arms/Legs/Face): No sensory loss (0) Language Aphasia: No aphasia, normal (0) Dysarthria: No dysarthria, normal (0) Extinction/Inattention: No exctinct/inattent (0) NIHSS Score: 0 Time NIHSS Performed: 19:00 Date NIHSS Performed: Aug 18, 2016 Past Medical History Past Medical History Notes: Echo results from Dec 19, 2015 Interpretation Summary The left ventricle is normal in size. Left ventricular systolic function is normal without focal wall motion abnormalities. The ejection fraction is estimated to be 60-65%. LVEF has not changed since prior study. Assessment of diastolic parameters suggests possible LV grade II diastolic dysfunction, consistent with elevated filling pressures. The right ventricle is normal in size, thickness and function. Pulmonary artery pressures cannot be estimated because of the lack of a measurable TR jet velocity. Both atria are normal in size. There is moderate aortic regurgitation. There is no holodiastolic flow reversal in the descending thoracic aorta. AR has not changed since prior study. There is no other significant valvular heart disease. The aortic root is normal size. Past Medical History Hx of frequent UTIs - on chronic prophylactic abx Firbromyalgia Migraines GERD IBS Insomnia Depression ho recurrent syncope - w/extensive workup ho C Diff December,. Irritable bowel syndrome. Most recent admission was December 2015. Denies Hx of heart murmur. Takes oxycodone, 2-6 of 10mg per day for pain management. Last dose was last night. Patient is allergic to Cipro and Sulfa. Reports: COPD Past Surgical History Reports: Appendectomy, Cholecystectomy, Hysterectomy Family History noncontributory Smoking History Former Smoker Social History Other Social History: Good social support, Local resident Ambulatory Status Independent Review of Systems Constitutional: Reports: Chills GI: Denies: Nausea, Vomiting Musculoskeletal: Reports: Back pain Skin: Reports Diaphoresis Neurologic: Reports: Change LOC, Focal weakness (left sided temper mill roller deficit), Headache, Shaking, Syncope Complete sys rev & neg: except as marked. Physical Exam Initial Vital Signs Vital Signs (First) Date Time Temp Pulse Resp B/P Pulse Ox O2 Delivery O2 Flow Rate FiO2 08/18/16 18:30 36.6 99 20 142/94 98 Room Air 08/18/16 18:57 2 Initial VS: Reviewed Alertness: Positive: Somnolent pt is yawning in the room Head / Eyes: Atraumatic, Normocephalic, PERRL, EOMI Respiratory / Chest: Atraumatic, Breath sounds NL, Breath sounds = bilat, No respiratory distress, No rales, No rhonchi, No wheezing Cardiovascular: Heart rate NL, Regular rhythm, Heart sounds NL, No gallop, No murmurs, No rubs Mental Status: Positive: Somnolent left temper mill roller strength deficit NIH 0 quite obtunded ENT: Atraumatic, Airway patent, Mucous membranes moist Neck: Atraumatic, Supple Back: Atraumatic, Inspection NL Upper Extremity / MS: Atraumatic, Inspection NL, No deformity, Neurologic intact Lower Extremity / Pelvis / MS: Atraumatic, Inspection NL, No deformity, Neurologic intact Skin: Atraumatic, Warm, Dry Interpretation & Diagnostics Lab Results Interpretation Result Diagram: 08/18/160 08/18/16 185 Test 08/18/16 18:50 08/18/16 19:16 White Blood Count 11.2th/mm3 (3.8-10.1) Red Blood Count 5.04mil/mm3 (3.90-5.20) Hemoglobin 14.1g/dL (12.0-15.6) Hematocrit 44.1% (35.0-46.0) Mean Corpuscular Volume 87.5fL (81-100) Mean Corpuscular Hemoglobin 28.0pg (27.0-35.0) Mean Corpuscular Hemoglobin Concent 32.0% (32.0-37.0) Red Cell Distribution Width 13.8% (12.3-15.4) Platelet Count 255bil/L (150-400) Neutrophils (%) (Auto) 58.9% (40-74) Lymphocytes (%) (Auto) 32.9% (14-46) Monocytes (%) (Auto) 6.1% (4-12) Eosinophils (%) (Auto) 1.3% (0-5) Basophils (%) (Auto) 0.5% (0-3) Prothrombin Time 9.5sec (8.1-12.5) Prothromb Time International Ratio 0.89ratio Sodium Level 141mEq/L (134-144) Potassium Level 4.5mEq/L (3.5-5.2) Chloride Level 104mEq/L (97-108) Carbon Dioxide Level 22mmol/L (18-29) Blood Urea Nitrogen 21mg/dL (8-27) Creatinine 1.64mg/dL (0.57-1.00) Estimat Glomerular Filtration Rate 45mL/min (>59) Glucose Level 130mg/dL (60-99) Calcium Level 9.7mg/dL (8.5-10.1) Total Bilirubin 0.2mg/dL (0.0-1.2) Aspartate Amino Transf (AST/SGOT) 17U/L (0-50) Alanine Aminotransferase (ALT/SGPT) 13U/L (0-32) Alkaline Phosphatase 100U/L (25-165) Total Protein 7.4g/dL (6.4-8.4) Albumin 4.1g/dL (3.4-5.0) Alcohols < 10mg/dL (0-10) Urine Color Yellow (YELLOW) Urine Appearance Clear (CLEAR,HAZY) Urine pH 5.5 (5.0-8.0) Urine Specific [place] 1.015 (1.003-1.035) Urine Protein Negativemg/dL (NEG,TRACE) Urine Glucose (UA) Negativemg/dL (NEGATIVE) Urine Ketones Negativemg/dL (NEGATIVE) Urine Occult Blood Negative (NEGATIVE) Urine Nitrite Positive (NEGATIVE) Urine Bilirubin Negative (NEGATIVE) Urine Urobilinogen Normalmg/dL (NORMAL) Urine Leukocyte Esterase Trace (NEGATIVE) Urine RBC 0-2/hpf (0-2) Urine WBC 6-10/hpf (0-5) Urine Epithelial Cells Few/hpf (NONE-MOD) Urine Crystals None seen (NONE SEEN) Urine Bacteria Many/hpf (NONE-FEW) Urine Hyaline Casts None/lpf (NONE) Urine Granular Casts None seen (NONE SEEN) Urine Waxy Casts None seen (NONE SEEN) Urine Red Blood Cell Casts None seen (NONE SEEN) Urine White Blood Cell Casts None seen (NONE SEEN) Urine Mucus None seen (None Seen) Urine Trichomonas None seen (NONE SEEN) Urine Yeast None (NONE SEEN) Urinalysis Comment None Urine Culture Reflexed Indicated Urine Opiates Screen Negative Urine Methadone Screen Negative Urine Barbiturates Screen Negative Urine Amphetamines Screen Negative Urine Benzodiazepines Screen Negative Urine Cocaine Metabolite Screen Negative Urine Cannabinoids Screen Positive CT Head Interpretation IMPRESSION: 1. No CT evidence of acute intracranial pathology. 2. Findings and recommendations discussed with Dr. Sol via telephone [phone] at 6:30 pm on 08/18/2016 This study fulfills neurological imaging criteria for inclusion or exclusion of acute stroke therapies based on available published neurological imaging guidelines. Dictated by: Marito Curry M.D. on 08/18/2016 at 18:27 Approved by: Marito Curry M.D. on 08/18/2016 at 18:31 Study: Head CT no contrast Interpretation / Wet Read by: Interpret - Radiologist Re-Eval/Medical Decision Med Decision/Clinical Course Patient presents obtunded, pinpoint pupils and hypoventilating. She was given IV Narcan and she seemed to respond immediately. She had asymmetry to her temper mill roller strength. CT stroke code had been called. CT of her brain and the CT angiogram were normal. She is still quite obtunded but she is protecting her airway at this time. She was given the Narcan which was put in immediate withdrawal. She is in no condition be discharged home. Nothing about this warrants thrombolytics I am not convinced she had a stroke. Asymmetric respiratory care faculty have completely resolved. She will be admitted to progressive care unit. She will be watched closely. Narcan administered as needed. Consider MRI to further delineate the result stroke symptoms. Consultation : Referral / Consult Name: Tanika Sinclair MD Consulted With: Hospitalist Call Returned at: 20:24 Employee Counselor: Agrees with eval, Agrees with plan, Accepts admit Note: Case discussed. Dr. Sinclair agrees with plan. Admitted to PCU. Counseled Regarding: Diagnosis, Lab results, Need for admission Discharge & Departure Impression: Primary Impression: Opiate overdose Encounter type: initial encounter Injury intent: undetermined intent Qualified Code: T40.604A - Poisoning by unspecified narcotics, undetermined, initial encounter Additional Impression: Acute left-sided weakness Disposition: ADMITTED TO HOSPITAL Discharge Condition All VS Reviewed: Yes Condition: Stable Referrals: Arturo Bullock MD (PCP) Crit Care Except Billable Proc Time Spent: 30-74 minutes Services Performed: Patient management by me, Time spent at bedside, Reviewing test results, Reviewing imaging, Discussing patient care, Documentation in record, Other (managing the Narcan and respiratory depression associated with opiates.) Scribe Attestation Portion of this note were transcribed by Sandhya Venegas. I, Dr. Sol, personally performed the history, physical exam, and medical decision-making: I reviewed and confirmed the accuracy for the information in the transcribed note. Signed by: aishwarya Dominguez, 08/18/16 2100 copies to: Arturo Bullock MD, Todd P DO Aug 18, 2016 18:29 Sandhya Venegas Aug 18, 2016 18:38
--- NOTE | 2016-08-18 18:38 | DRSVH ---
PROCEDURE: CT BRAIN (TPA) ([id number]) INDICATIONS: WEAKNESS, STROKE PROTOCOL TECHNIQUE: Noncontrast 4.5 mm thick angled axial sections acquired from the foramen magnum to the vertex, with c oronal reformats. COMPARISON: [facility], CT, CT ABD PELVIS WO CON, 05/15/2016, 12:29. FINDINGS: Image quality: Excellent. CSF spaces: Basal cisterns are patent. No extra-axial fluid collections. Ventricles are normal in size and shape. Brain: No midline shift. No intracranial masses or hemorrhage. Castillo-white matter interface is norm al. Mild generalized cerebral and cerebellar atrophy. Skull and face: Calvarium and visualized facial bones are intact, without suspicious lesions. Sinuses: Visualized sinuses and mastoids are clear. IMPRESSION: 1. No CT evidence of acute intracranial pathology. 2. Findings and recommendations discussed with Dr. Sol via telephone [phone] at 6:30 pm on 7 This study fulfills neurological imaging criteria for inclusion or exclusion of acute stroke therapie s based on available published neurological imaging guidelines. Dictated by: Marito Curry M.D. on 08/18/2016 at 18:27 Approved by: Marito Curry M.D. on 08/18/2016 at 18:31
[2016-08-18 19:01] LABS: BASOPHILS % (AUTO) 0.5 % (0-3); EOSINOPHILS % (AUTO) 1.3 % (0-5); MONOCYTES % (AUTO) 6.1 % (4-12); Mean Corpuscular Volume 87.5 fL (81-100); NEUTROPHILS % (AUTO) 58.9 % (40-74); Platelet Count 255 bil/L (150-400)
[2016-08-18 19:21] LABS: INR 0.89 ratio
[2016-08-18 19:40] LABS: APPEARANCE,URINE CLEAR (CLEAR,HAZY); COLOR,URINE YELLOW (YELLOW); OCCULT BLOOD,URINE NEGATIVE (NEGATIVE); PH,URINE 5.5 (5.0-8.0)
[2016-08-18 19:41] LABS: UROBILINOGEN,URINE NORMAL (NORMAL)
[2016-08-18] MEDS ORDERED: Ondansetron 2 mg/mL 2 mL Inj IVPUSH PRN (20:50)
[2016-08-18] MEDS ORDERED: Albuterol-Ipratropium 3 mL Inhalation Solution NEB PRN (21:05)
[2016-08-18] MEDS ORDERED: Ipratropium 0.03% 30 mL Nasal Spray Bottle NASAL PRN (21:05)
--- NOTE | 2016-08-18 21:24 | PCM.HPMED ---
Subjective Date of Service Aug 18, 2016 Primary Provider: Admitting Physician: Tanika Sinclair MD Primary Care Physician: Arturo Bullock MD Attending Physician: Tanika Sinclair MD Admit Status: From the Emergency Department, [facility] Telemetry Chief Complaint: Patient was found down with loss of consciousness. History of Present Illness: Is a 65-year-old female who was brought in by EMS to the emergency room with loss of consciousness. Patient was found by family outside on the ground in the yard. Initially by EMS the patient was found to be completely unresponsive spell cool diaphoretic. Patient was also given Narcan by EMS and did awaken. There is some question of whether her left side handgrip was intact or not but in the emergency room she had normal bilateral manager of care. Patient does use opiates at home and I admit to the ER doctor that she took more than she should have. I am not able to discern any other history at this time there is only the patient is present and slightly drowsy at the time of this interview. She did have an admission in May here for C. difficile colitis. Review of Systems: Patient denies any headaches denies any history of opiate overdose in the past. Patient denies any suicidal ideation all other review of systems are reviewed and are negative except for as in history of present illness. Patient is somewhat of a poor historian given her drowsiness currently. Allergies Coded Allergies: Sulfa (Sulfonamide Antibiotics) (Verified Allergy, Severe, Stop breathing , 08/18/16) ciprofloxacin (Verified Allergy, Severe, hives, 08/18/16) Pentazocine Lactate (Verified Allergy, Intermediate, 08/18/16) morphine (Verified Allergy, Intermediate, Shortness of Breath, 08/18/16) [place] Nut (Verified Allergy, Unknown, 08/18/16) NSAIDS (Non-Steroidal Anti-Inflamma (Verified Allergy, Unknown, GI BLEED, 08/18/16) Phenothiazines (Verified Allergy, Unknown, 08/18/16) prochlorperazine (Verified Allergy, Unknown, diarrhea, 08/18/16) propoxyphene (Verified Allergy, Unknown, 08/18/16) tree nut (Verified Allergy, Unknown, 08/18/16) Home Medications Scheduled Aspirin (Aspirin) 81 Mg Tablet 81 MG PO DAILY Azelastine HCl (Azelastine HCl) 137 Mcg/0.137 Ml [place].pump 2 SPRAY NASAL BID Cetirizine HCl (Zyrtec) 10 Mg Capsule 10 MG PO BID Cranberry Conc/C/Bacill Coag (Cranberry Tablet) 1 Each Tablet 2 EACH PO QID Duloxetine (Duloxetine) 30 Mg Capsule.dr 30 MG PO DAILY Estradiol (Estrace) 42.5 Gm Cream.appl 1 APPLIC VAGINAL Q2DAY Fluticasone Propionate (Fluticasone Propionate Nasal) 16 Gm [place].susp 1 SPRAY NS HS Fosfomycin Tromethamine (Monurol) 3 Gm Packet 3 GM PO [id number] Lactobacillus Combination No.4 (Probiotic) 1 Each Capsule 2 EACH PO BID Lisinopril (Lisinopril) 10 Mg Tablet 5 MG PO DAILY Metoprolol Tartrate (Metoprolol Tartrate) 25 Mg Tablet 12.5 MG PO BID Mometasone/Formoterol (Dulera 200 Mcg/5 Mcg Inhaler) 13 Gm Hfa.aer.ad 2 PUFF INHALATION BID Montelukast (Singulair) 10 Mg Tablet 10 MG PO HS Pantoprazole DR (Pantoprazole DR) 40 Mg Tablet.dr 40 MG PO BID Pregabalin (Lyrica) 50 Mg Capsule 50 MG PO BID Vancomycin (Vancomycin) 125 Mg Capsule 125 MG PO QID Scheduled PRN Albuterol HFA (Proair HFA) 8.5 Gm Hfa.aer.ad 2 PUFFS INHALATION Q4H PRN PRN For Shortness of Breath Diclofenac Gel (Voltaren Gel) 100 Gm Tube 1 GM TOPICAL QID PRN PRN For Pain Ipratropium [place] (Ipratropium [place] 0.03% Nasal) 30 Ml [place] 2 SPRAY NASAL TID PRN PRN For Congestion Ipratropium/Albuterol Sulfate (Iprat-Albut 0.5-3(2.5) mg/3 mL Inhalant Soln) 3 Ml Ampul.neb 3 ML IH Q6 PRN PRN For Shortness of Breath Lidocaine HCl (Lidocaine HCl) 5 Ml Jel 1 APPLIC TOPICAL DAILY PRN PRN For Pain apply to feet Loperamide (Loperamide) 2 Mg Capsule 2 MG PO Q4H PRN PRN For Diarrhea or Loose Stool Methocarbamol (Methocarbamol) 500 Mg Tablet 1-2 EACH PO BID PRN PRN For Spasm Metoclopramide (Reglan) 5 Mg Tablet 5 MG PO QID PRN PRN For Nausea Nystatin (Nystatin) 1 Each Powder.ea. 1 APPLIC TOP BID PRN PRN For Itching Ondansetron ODT (Ondansetron ODT) 4 Mg Tab.rapdis 8 MG PO QID PRN PRN For Nausea Sumatriptan Succinate (Sumatriptan Succinate) 100 Mg Tablet 100 MG PO BID PRN PRN Headache oxyCODONE-Acetaminophen 10-325 mg (oxyCODONE-Acetaminophen 10-325 mg) 1 Each Tablet 1 EACH PO Q4H PRN PRN For Pain PMH Past Medical History Past Medical History Notes: Echo results from Dec 19, 2015 Interpretation Summary The left ventricle is normal in size. Left ventricular systolic function is normal without focal wall motion abnormalities. The ejection fraction is estimated to be 60-65%. LVEF has not changed since prior study. Assessment of diastolic parameters suggests possible LV grade II diastolic dysfunction, consistent with elevated filling pressures. The right ventricle is normal in size, thickness and function. Pulmonary artery pressures cannot be estimated because of the lack of a measurable TR jet velocity. Both atria are normal in size. There is moderate aortic regurgitation. There is no holodiastolic flow reversal in the descending thoracic aorta. AR has not changed since prior study. There is no other significant valvular heart disease. The aortic root is normal size. Past Medical History Hx of frequent UTIs - on chronic prophylactic abx Firbromyalgia Migraines GERD IBS Insomnia Depression ho recurrent syncope - w/extensive workup ho C Diff December,. Irritable bowel syndrome. Most recent admission was December 2015. Denies Hx of heart murmur. Takes oxycodone, 2-6 of 10mg per day for pain management. Last dose was last night. Patient is allergic to Cipro and Sulfa. Reports: COPD Past Surgical History Reports: Appendectomy, Cholecystectomy, Hysterectomy Family History Patient denies family history of heart disease, diabetes Social History Hx Alcohol Use: No Hx Substance Use: No Hx Tobacco Use: Yes Smoking Status: Former Smoker Living Arrangement: with Family Exam Vital Signs Vital Sign - Last Date Time Temp Pulse Resp B/P Pulse Ox O2 Delivery O2 Flow Rate FiO2 08/18/16 19:59 79 17 161/47 95 Room Air 08/18/16 18:57 2 7/4/17 18:30 36.6 Exam Middle-aged female who looks older than her stated age and is drowsy but arousable and will slowly answer questions Head: Normocephalic atraumatic Neck: Bilateral bruits no adenopathy Chest: Clear to auscultation Heart: Regular rate and rhythm S1-S2 with a 2/6 systolic ejection murmur Abdomen: Soft nontender bowel sounds present Extremities: No pedal edema Skin: No rashes Psych: Blunted affect Neuro: Slightly drowsy oriented 3, motor strength is intact bilaterally Lab and Diagnostics Labs Laboratory Tests 72 Hours Test 08/18/16 18:50 08/18/16 19:16 08/18/16 20:46 White Blood Count 11.2th/mm3 (3.8-10.1) Red Blood Count 5.04mil/mm3 (3.90-5.20) Hemoglobin 14.1g/dL (12.0-15.6) Hematocrit 44.1% (35.0-46.0) Mean Corpuscular Volume 87.5fL (81-100) Mean Corpuscular Hemoglobin 28.0pg (27.0-35.0) Mean Corpuscular Hemoglobin Concent 32.0% (32.0-37.0) Red Cell Distribution Width 13.8% (12.3-15.4) Platelet Count 255bil/L (150-400) Neutrophils (%) (Auto) 58.9% (40-74) Lymphocytes (%) (Auto) 32.9% (14-46) Monocytes (%) (Auto) 6.1% (4-12) Eosinophils (%) (Auto) 1.3% (0-5) Basophils (%) (Auto) 0.5% (0-3) Prothrombin Time 9.5sec (8.1-12.5) Prothromb Time International Ratio 0.89ratio Sodium Level 141mEq/L (134-144) Potassium Level 4.5mEq/L (3.5-5.2) Chloride Level 104mEq/L (97-108) Carbon Dioxide Level 22mmol/L (18-29) Blood Urea Nitrogen 21mg/dL (8-27) Creatinine 1.64mg/dL (0.57-1.00) Estimat Glomerular Filtration Rate 45mL/min (>59) Glucose Level 130mg/dL (60-99) Calcium Level 9.7mg/dL (8.5-10.1) Total Bilirubin 0.2mg/dL (0.0-1.2) Aspartate Amino Transf (AST/SGOT) 17U/L (0-50) Alanine Aminotransferase (ALT/SGPT) 13U/L (0-32) Alkaline Phosphatase 100U/L (25-165) Total Protein 7.4g/dL (6.4-8.4) Albumin 4.1g/dL (3.4-5.0) Alcohols < 10mg/dL (0-10) Urine Color Yellow (YELLOW) Urine Appearance Clear (CLEAR,HAZY) Urine pH 5.5 (5.0-8.0) Urine Specific [place] 1.015 (1.003-1.035) Urine Protein Negativemg/dL (NEG,TRACE) Urine Glucose (UA) Negativemg/dL (NEGATIVE) Urine Ketones Negativemg/dL (NEGATIVE) Urine Occult Blood Negative (NEGATIVE) Urine Nitrite Positive (NEGATIVE) Urine Bilirubin Negative (NEGATIVE) Urine Urobilinogen Normalmg/dL (NORMAL) Urine Leukocyte Esterase Trace (NEGATIVE) Urine RBC 0-2/hpf (0-2) Urine WBC 6-10/hpf (0-5) Urine Epithelial Cells Few/hpf (NONE-MOD) Urine Crystals None seen (NONE SEEN) Urine Bacteria Many/hpf (NONE-FEW) Urine Hyaline Casts None/lpf (NONE) Urine Granular Casts None seen (NONE SEEN) Urine Waxy Casts None seen (NONE SEEN) Urine Red Blood Cell Casts None seen (NONE SEEN) Urine White Blood Cell Casts None seen (NONE SEEN) Urine Mucus None seen (None Seen) Urine Trichomonas None seen (NONE SEEN) Urine Yeast None (NONE SEEN) Urinalysis Comment None Urine Culture Reflexed Indicated Urine Opiates Screen Negative Urine Methadone Screen Negative Urine Barbiturates Screen Negative Urine Amphetamines Screen Negative Urine Benzodiazepines Screen Negative Urine Cocaine Metabolite Screen Negative Urine Cannabinoids Screen Positive Acetaminophen Level < 15.0ug/mL Rx (10-25) Result Diagram: 08/18/16184908/18/161849 X-Rays, CTs and MRIs CT of head without contrast reveals no acute intracranial abnormality CTA of head and neck per ER physician shows no abnormalities 12-lead ECG Telemetry in the ER is sinus at a rate of 78 Twelve-lead EKG shows sinus at a rate of 77 and no acute abnormalities Assessment & Plan # Acute encephalopathy, present on admission -Patient did respond to Narcan so suspect overdose of her opiates which she did admit to doing to the emergency room physician. -Place on telemetry and give Narcan every 30 minutes when necessary respiratory rate less than 8 -Check venous blood gas -Place on telemetry and continuous pulse oximeter -Obtain case management consultation -Hold any medications which may alter her mental status at least overnight # Urinary tract infection, acute, present on admission -Place on IV Rocephin and patient is ready for discharge put on oral antibiotics #Stage III chronic kidney disease, present on admission -Avoid nephrotoxic agents #Hypertension, essential, present on admission -Continue home medication regimen when able to take oral medication new # COPD/asthma, chronic, present on admission Continue home medication regimen # DVT prophylaxis Place patient on subcutaneous Lovenox # CODE STATUS -Full code VTE Prophylaxis: Sub-Q Enoxaparin VTE Mechanical Devices: Intermittant Pneumatic CD Resuscitation Status: CPR: Attempt Resuscitation Time spent 60 minutes Tanika Sinclair MD Aug 18, 2016 21:24
[2016-08-18] MEDS ORDERED: Albuterol 2.5 mg/3 mL Inhalation Solution NEB PRN (21:26)
[2016-08-18] MEDS ORDERED: Nystatin 100,000 Unit/Gm 15 Gm Powder TOPICAL PRN (21:30)
[2016-08-18] MEDS ORDERED: cefTRIAXone Inj 2,000 MG in Dextrose 5% Minibag Plus 50 ML IV ONE (21:35)
[2016-08-18] MEDS: 0.9% Sodium Chloride 1,000 ML IV SCH (23:08)
[2016-08-19] VITALS (8 sets, daily range): BP systolic 160–194; BP diastolic 66–88; PULSE 52–76; RESP 16–22; O2SAT 95–96
[2016-08-19 06:09] LABS: BASOPHILS % (AUTO) 0.6 % (0-3); EOSINOPHILS % (AUTO) 1.5 % (0-5); MONOCYTES % (AUTO) 5.5 % (4-12); Mean Corpuscular Hemoglobin 28.2 pg (27.0-35.0); Mean Corpuscular Volume 87.9 fL (81-100); NEUTROPHILS % (AUTO) 52.5 % (40-74); Platelet Count 271 bil/L (150-400)
--- NOTE | 2016-08-19 06:37 | NUR ---
Admit/Antibiotic/Pain Pt admitted to room 2026 a little after 2199, pt able to stand and transfer beds, overall somewhat weak so SBA for safety. Pt LIM equally and w/ equal handgrips, tired but A&Ox3. Pt oriented to room and able to answer admission questions though states she does not know her meds very well and will be able to confirm those this morning. Pt voiced hesitation in taking ordered Rocephin for UTI given recent CDiMD viji paged about pt concerns and stated this med was still recommended at this time and pt agreed to take med. On arrival pt stated pain was 5/5 in lower back, which is a chronic issue given fibromyalgia and arthritis, and also stated this was tolerable level for her. Once admission was fully completed pt fell asleep for the rest of the night, still easily woken for interventions.
[2016-08-19] MEDS: DULoxetine 30 mg DR Capsule PO SCH (08:26)
[2016-08-19] MEDS: Fluticasone-Salmererol 250-50 Inhaler INHALATION SCH ×2 (08:31→21:05)
[2016-08-19] MEDS: 0.9% Sodium Chloride 1,000 ML IV SCH ×3 (08:35→21:10)
[2016-08-19] MEDS ORDERED: LACT1CAP38 PO ×2 (11:06)
--- NOTE | 2016-08-19 11:17 | DRSVH ---
PROCEDURE: CT ANGIO BRAIN NECK TPA INDICATIONS: STAT READ - CALL ED PROVIDER W/RESULTS TECHNIQUE: Pre-contrast 4.5 mm thick sections acquired from the foramen magnum to the vertex. After the adminis tration of intravenous contrast, 1 mm thick sections acquired from the aortic arch through the [place]. Post-contrast 4.5 mm thick sections then re-acquired from the foramen magnum to the vert ex. 3-dimensional ixnqehc-mxfmkapsb-qxjrdheonu (MIP) and/or volume rendering reformats were acquired of the central intracranial vasculature and neck separately. For radiation dose reduction, the foll owing was used: automated exposure control, adjustment of mA and/or kV according to patient size. COMPARISON: None. FINDINGS: Image quality: Excellent. BRAIN: CSF spaces: Ventricles are normal in size and shape. Basal cisterns are patent. No extra-axial flu id collections. Brain: No midline shift. No intracranial bleeds or masses. Castillo-white matter interface appears int act. Skull and face: Calvarium and facial bones appear intact, without suspicious lesions. Orbits appear normal. Sinuses: Sinuses and mastoids are clear. HEAD CT ANGIOGRAPHY: Anterior circulation: Intracranial internal carotid arteries are normal in size and flow. The flow within the paired anterior cerebral arteries is normal and symmetric. The flow within the middle cer ebral arteries is normal and symmetric. The anterior communicating artery is seen. No aneurysms are seen. Posterior circulation: Visualized portions of the vertebral arteries demonstrate normal caliber, and join to form a normal appearing basilar artery. Flow within the posterior cerebral arteries is norm al and symmetric. No aneurysms are seen. NECK CT ANGIOGRAPHY: Carotid system: The origins of the common carotid arteries appear patent. The common carotid arteri es demonstrate normal caliber and courses. The bifurcation regions are widely patent with calcified atheromatous plaque causing less than 50% stenosis. The internal carotid arteries demonstrate normal calibers and courses. Posterior circulation: The origins of the vertebral arteries both appear widely patent. The more brink perior extracranial portions of both vertebral arteries also demonstrate normal courses and calibers. They join to form a normal appearing basilar artery. Soft tissues: Visualized neck soft tissues demonstrate no suspicious abnormalities. Bones: No suspicious bony lesions. Visualized cervical spine appears normally aligned. IMPRESSION: 1. Normal CT angiogram of the head and neck. 2. Findings discussed via telephone ([phone]) with Dr. Sol at 8:15 PM on 08/18/2016. Dictated by: Marito Curry M.D. on 08/18/2016 at 20:11 Approved by: Marito Curry M.D. on 08/18/2016 at 20:20
--- NOTE | 2016-08-19 13:04 | NUR ---
Case Management: [place] and [employer] Part D delivered and explained to pt. Signed original placed in chart. Copy left at bedside. Astrid Daniel RN
--- NOTE | 2016-08-19 14:53 | NUR ---
Evaluation completed. Please go to "Notes" then click on "Assessments and Notes" (bottom left corner of screen). Then select appropriate discipline tab on top of screen.
--- NOTE | 2016-08-19 16:05 | NUR ---
Cardiac/pain/diet/BMs/ Tele SB to SR high 50s to mid 60s. BP this AM 161/69. BP meds given. Afternoon BP 210/63. notified. Pt has been c/o 09/24 back and hand pain secondary to fibromyalgia. APAP given with very little results. Once dose Labetilol given. BP came down to 176/69. BP in the evening 189/88 with accompanying headache. MD instructed to give percocet. Speech pathologist instructed to stay on dysphagia mechanical diet. Taking pills fine whole with water. Pt had multiple loose BMs today, the most recent one incontinent. Stool sample sent down to lab. Addendum: 08/19/16 at 1849 by YANELI ABRAMS RN Stools today have been very dark colored.
[2016-08-19] MEDS ORDERED: oxyCODONE-Acetamin 5-325 mg Tablet PO PRN (16:25)
[2016-08-19] MEDS: oxyCODONE-Acetamin 10-325 mg Tablet PO PRN ×2 (17:18→23:46)
--- NOTE | 2016-08-19 18:37 | PCM.PNMED ---
Subjective Date of Service Aug 19, 2016 Subjective Graciela Ibarra is a 65-year-old female with past medical history of chronic kidney disease stage 3, chronic UTI, hypertension and COPD who was brought in by EMS to the emergency room with loss of consciousness. Patient was found by family outside on the ground in the yard and given Narcan by EMS which did awaken her. In the ED she was found to have acute encephalopathy likely secondary to opiate overdose. Overnight Events: None Today patient is resting in bed comfortably, in no acute distress. She mentions feeling tired, nauseated and is having some pain in her hands and back from ongoing arthritis. She does not have any pain or burning with urination. She denies headache, chest pain, shortness of breath, abdominal pain, vomiting. She does mention she has chronic uti which she takes fosfomycin for per recommendation of Dr. Johnson in the past. Exam Vital Signs Vital Sign - Last Date Time Temp Pulse Resp B/P Pulse Ox O2 Delivery O2 Flow Rate FiO2 08/19/16 03:08 37.1 64 16 160/72 95 Room Air 08/18/16 18:57 2 Intake and Output 08/18/16 08/18/16 08/19/16 Cumulative From/Thru 15:00 23:00 07:00 08/18/16 18:30 - 08/19/16 06:24 Intake Total 1000 ml 720 ml 1720 ml Output Total 600 ml 600 ml Balance 1000 ml 120 ml 1120 ml Intake Oral 0 ml 0 ml IV Total 1000 ml 720 ml 1720 ml Output Urine Total 600 ml 600 ml # Bowel Movements 0 0 Exam General: Middle-aged female, alert and oriented x3, in no acute distress and appropriately responding to questions Head: Normocephalic atraumatic Neck: Bilateral bruits no adenopathy Chest: Clear to auscultation Heart: Regular rate and rhythm S1-S2 with a 2/6 systolic ejection murmur Abdomen: Soft nontender bowel sounds present Extremities: No pedal edema bilaterally Skin: No rashes, warm, dry Psych: Normal mood and affect Neuro: Slightly drowsy oriented 3, motor strength is intact bilaterally Lab and Diagnostics Item Value Date Time Urine Occult Blood Negative 08/18/16 1916 White Blood Count 11.2 th/mm3 H 08/18/16 1850 White Blood Count 9.5 th/mm3 08/19/16 0532 Hemoglobin 14.1 g/dL 08/18/160 Hemoglobin 12.4 g/dL 08/19/16 0532 Hematocrit 44.1 % 08/18/161849 Hematocrit 38.6 % 08/19/16 0532 Platelet Count 255 annelise/L 08/18/16 1850 Platelet Count 271 annelise/L 08/19/16 0532 Prothrombin Time 9.5 sec 08/18/161849 Prothromb Time International Ratio 0.89 ratio 08/18/161849 Sodium Level 141 mEq/L 08/18/161849 Sodium Level 142 mEq/L 08/19/16 0532 Potassium Level 4.5 mEq/L 08/18/161849 Potassium Level 4.6 mEq/L 08/19/16 0532 Creatinine 1.64 mg/dL H 08/18/161849 Creatinine 1.33 mg/dL H 08/19/16 0532 Glucose Level 130 mg/dL H 08/18/161849 Glucose Level 99 mg/dL 08/19/16 0532 Triglycerides Level 446 mg/dL H 08/19/16 0532 Cholesterol Level 270 mg/dL H 08/19/16 0532 LDL Cholesterol, Calculated 135.800 mg/dL H 08/19/16 0532 HDL Cholesterol 45 mg/dL 08/19/16 0532 Urine Cannabinoids Screen Positive 08/18/161915 Urine Opiates Screen Negative 08/18/161915 Urine Methadone Screen Negative 08/18/161915 Acetaminophen Level < 15.0 ug/mL Rx 08/18/162045 Urine Barbiturates Screen Negative 08/18/161915 Urine Amphetamines Screen Negative 08/18/161915 Urine Benzodiazepines Screen Negative 08/18/161915 Urine Cocaine Metabolite Screen Negative 08/18/161915 Alcohols < 10 mg/dL 08/18/161849 Urine Leukocyte Esterase Trace 08/18/161915 Urine WBC 6-10 /hpf 08/18/161915 Result Diagram: 08/19/16 0532 08/18/161849 X-Rays, CTs and MRIs PROCEDURE: CT ANGIO BRAIN NECK TPA IMPRESSION: 1. Normal CT angiogram of the head and neck. 12-lead ECG Telemetry in the ER is sinus at a rate of 78 Twelve-lead EKG shows sinus at a rate of 77 and no acute abnormalities Assessment & Plan Graciela Ibarra is a 65 year old female with past medical history of chronic kidney disease stage 3, hypertension and COPD who came to the ED after having loss of conciousness, responsive to narcan and found to have acute encephalopathy likely secondary to opiate overdose. Acute encephalopathy, resolved Patient did respond to Narcan so suspect overdose of her opiates which she did admit to doing to the emergency room physician. -Place on telemetry and give Narcan every 30 minutes when necessary respiratory rate less than 8 -Obtain case management consultation -Hold any medications which may alter her mental status at least overnight Urinary tract infection, acute, present on admission -Switched IV rocephin to fosfomycin 3g po once per her home medication for chronic uti Stage III chronic kidney disease, present on admission -Avoid nephrotoxic agents Hypertension, essential, present on admission -Continue home medication regimen when able to take oral medication new COPD/asthma, chronic, present on admission Continue home medication regimen DVT prophylaxis Place patient on subcutaneous Lovenox Chronic pain, chronic, ongoing Patient having lower back pain and hand pain from osteoarthritis. Her normal home pain regimen is oxycodone 10-325mg every 4 hours per [facility] in [place] Disposition: Home tomorrow if patient blood pressure is manageable with medication and if her encephalopathy is stable. VTE Prophylaxis: Sub-Q Enoxaparin VTE Mechanical Devices: Intermittant Pneumatic CD Resuscitation Status: CPR: Attempt Resuscitation Attending Statement The patient was seen and examined together with Dr. Baldwin on 08/19/2016 and I agree with the history, exam and plan as outlined in the note above. . Sarath Baldwin DO Aug 19, 2016 06:43 Tono Fallon MD Aug 20, 2016 16:53
[2016-08-19] MEDS ORDERED: Fluticasone 0.05% 15 Spray/2 Gm 16 Gm Nasal Spray NOSTRIL SCH (21:00)
[2016-08-19] MEDS ORDERED: cefTRIAXone Inj 2,000 MG in Dextrose 5% Minibag Plus 50 ML IV SCH ×2 (21:00→21:45)
[2016-08-20] VITALS (9 sets, daily range): BP systolic 165–190; BP diastolic 53–76; PULSE 55–64; RESP 9–16; O2SAT 96
[2016-08-20] MEDS: NiCARdipine Inj 25 MG in Dextrose 5% 240 ML IV SCH ×3 (03:17→12:05)
[2016-08-20] MEDS ORDERED: oxyCODONE-Acetamin 5-325 mg Tablet PO PRN (03:55)
[2016-08-20] MEDS ORDERED: HYDROmorphone 1 mg/mL Inj IVPUSH ONE (03:55)
[2016-08-20 05:45] LABS: BASOPHILS % (AUTO) 0.8 % (0-3); EOSINOPHILS % (AUTO) 2.8 % (0-5); MONOCYTES % (AUTO) 6.8 % (4-12); Mean Corpuscular Hemoglobin 27.3 pg (27.0-35.0); NEUTROPHILS % (AUTO) 44.4 % (40-74); Platelet Count 231 bil/L (150-400)
[2016-08-20] MEDS ORDERED: hydrALAZINE 20 mg/mL Inj IV PRN (06:15)
[2016-08-20] MEDS: Fluticasone-Salmererol 250-50 Inhaler INHALATION SCH (07:31)
[2016-08-20] MEDS: DULoxetine 30 mg DR Capsule PO SCH (07:31)
--- NOTE | 2016-08-20 07:43 | NUR ---
HTN/Transfer SBP 170s at HS, given HS metoprolol and treating pain, when reassessed SBP 180s-190s, pt c/o headache along w/ chronic back and hand pain. MD notified and ordered one time Vasotec dose. HTN persisted, see vitals. MD notified. Pt given Tylenol as well as Percocet, headache improved per pt though back/hand pain persisted. Orders given to transfer to CCU to be put on gtt for BP. Report to Adonay Nash, CCU RN.
--- NOTE | 2016-08-20 10:14 | NUR ---
NUTRITION ASSESSMENT: ASSESS: Pt is a 65yo F admitted for opiate OD and acute encephalopathy. Pt has been experiencing swallowing difficulties. ST evaluated pt and has recommended a GI consult with concern for esophageal motility disorder. Pt also has poor dentition and she has been placed on a dysphagia mechanical diet with thin liquids. PO has been fair at 10-100%. PMHX: CKD stg 3, UTI, HTN, COPD LABS: Reviewed. Glu 103, Alb 3.9 MEDS: Reviewed. GI: BMx1 08/19 SKIN: no major issues CURRENT WTS: 88.7kg, BMI 35.8kg/m2, IBW: 50kg DIET: Dysphagia Mechanical, PO 10-100% EST. NEEDS: BMI Kcals: 1775-1950kcal/day (20-22kcal/kg) Pro: 60-75g/day (1.2-1.5g/kg IBW) NUTRITION DIAGNOSIS: 1.) Chew/swallow difficulty related to altered gi function and poor dentition as evidence by need for dysphagia mechanical diet per ST, no bottom dentures and concern for esophageal dis-motility. NUTRITION INTERVENTION: 1.) Continue diet per ST. MONITOR / EVAL: ST, PO, wt, gi, labs, POC. Will continue to monitor per moderate nutrition risk guidelines.
--- NOTE | 2016-08-20 11:20 | PCM.DIMED ---
Sarath Baldwin DO 08/20/16 1120: Discharge Instructions Date of Service Aug 20, 2016 Dates of Hospitalization Aug 18, 2016 at 21:04 Discharge Diagnosis Discharge Diagnosis Acute encephalopathy Urinary tract infection, acute on chronic Stage III chronic kidney disease Hypertension COPD/asthma DVT prophylaxis Medication Instructions Additional med instructions You do not have any additional medications added Diet Discharge Diet: Other (Recommend dysphagia mechanical diet. Soft foods) Activity Discharge Activity: Home Health Phyical Therapy Call your provider Call your provider for: Fever or Chills, Chest pain, Weakness (unilateral) Patient Instructions Patient Instructions Continue home medications Follow up with your primary care provider in 1 week, Dr. Bullock. Follow up and get thyroid levels checked in the outpatient with Dr. Bullock. Discuss if any changes to blood pressure medications are needed. Also follow up with [facility] Check your blood pressure daily. Make sure to be sitting and resting for 5 minutes before checking. Make sure you're hydrating yourself appropriately. We have ordered home health with physical therapy and nursing for 3 x per week reocmmendation. Make sure to utilize this. You have a UTI as well per urine culture. You have been given 3g of fosfomycin while here. Repeat your normal home dose in 2 weeks. Follow-up plan Check thyroid levels outpatient for patient sweating and tremors Discuss blood pressure management and extra medications if needed. No changes were done in the hospital. Follow-up Provider: Arturo Bullock MD Follow-up with PCP in: 1 week Provider: Deric Simon Follow-up in: 1 week Tono Fallon MD 08/20/16 1653: Discharge Instructions Attending's Statement The patient was seen and examined together with Dr. Baldwin on 08/20/2016 and I agree with the history, exam and plan as outlined in the note above. . Sarath Baldwin DO Aug 20, 2016 11:20 Tono Fallon MD Aug 20, 2016 16:53
--- NOTE | 2016-08-20 11:22 | NUR ---
Evaluation completed. Please go to "Notes" then click on "Assessments and Notes" (bottom left corner of screen). Then select appropriate discipline tab on top of screen.
--- NOTE | 2016-08-20 11:42 | NUR ---
Social Work: Initial Assessment/Chemical Dependency Assessment D: Per EMR review, pt is a 65 year old female admitted for opiate overdose resolved, left sided weakness. Pt is Medicare with [employer] Supplement; pt has no LTC insurance or VA benefits. PCP is Arturo Bullock MD. NOK is Tono Ibarra, Spouse, . Advanced directives requested from spouse. Readmit score is high, 5/8. CHIEF OPERATING OFFICER met with pt and spouse at bedside to discuss discharge planning. Sw role explained and contact info provided. Pt and spouse live in [place]. Pt uses a 4WW at baseline, has 24 hours month of FERNANDA caregiving. CGs and spouse assist the pt with bathing, chores and grocery shopping. Pt's CM is Tanisha Rodriguez. CHIEF OPERATING OFFICER faxed clinicals. Pt has [facility] history [facility]; her preference is for [facility]. PT recommendation is for the pt to discharge home with HH 3x week. CHIEF OPERATING OFFICER informed MD of PT recommendation and requested order to arrange for HH if he agreed with d/c recs. As pt was admitted for possible overdose of opiate medications, CHIEF OPERATING OFFICER completed CD assessment with the patient individually. Current Situation: Pt states that she was with her family on the 18 of August. She was busy throughout the day and forgot to take her pain medication. She found her pain to be getting worse. She does not recall what happened after this. Per H&P pt was found by family in the yard with a decreased LOC. Pt states that she did not intentionally take more of her medications and that her spouse usually helps her with medications. History of CD use: Pt states that she has had chronic pain issues for years and that she is followed by the [facility]. Pt states that she usually supplements her use of Opiates with THC because she is scared to use more powerful opiates. Pt states that she knows she can't be supplementing with THC and that she will eventually need to choose which method of pain management she uses. Pt denies any other use of illicit substances and does not find her THC use to be problematic. Pt has never participated in CD treatment, detox or experienced symptoms of withdrawal. History of MH: Pt states that she experiences depression and anxiety as a result of her chronic pain but states that she does not take any medications. At this time, the pt is not interested in a medication consult for psychiatric purposes. Pt denies current or past suicidal ideation, homicidal ideation and a/v hallucinations and states that this was not an attempt to end her life. Natural Supports: Pt states that her spouse is her biggest support and provided verbal consent for CHIEF OPERATING OFFICER to speak with the spouse. Spouse confirms all of the information provided by the patient. He expresses no concerns that this was an intentional overdose and states that the pt is very vocal with him about her pain management needs and her feelings. He has no concerns about her discharging home when she is medically stable and would like for her to have home health as well. Plan/Disposition: Anticipate that the pt will discharge home with [facility]- once order is received by MD, CHIEF OPERATING OFFICER will place referral. CHIEF OPERATING OFFICER offered the patient and spouse resources for outpatient counseling and CD resources- both declined. NADER discussed CD assessment with MD. CHIEF OPERATING OFFICER to continue to follow pt's clinical course. NADER Porter Addendum: 08/20/16 at 1217 by TUCKER NIX SS Amended: Links added.
[2016-08-20] MEDS: oxyCODONE-Acetamin 10-325 mg Tablet PO PRN (12:39)
[2016-08-20] MEDS ORDERED: oxyCODONE-Acetamin 10-325 mg Tablet PO ONE (12:45)
--- NOTE | 2016-08-20 13:30 | NUR ---
Spoke with Hilda at [facility] and faxed orders to [phone], let her know that when face to face is complete I will fax or let her know so she can nut picker. Updated ASSISTANT PROFESSOR OF NURSING
--- NOTE | 2016-08-20 13:30 | NUR ---
D/C note.. B/P improved after am meds given and remained off Nicardipine gtt. Pt seen by MD and d/c order given. Pt noted to have 8/10 back pain prior to D/C. B/P was 169/60. Also is having loose brown stools some nausea, but no emesis. Med with Zofran and this was effective. Med with Percocet and this brought pain from an 8 to a 5 and pt states that is her "tolerable" number. Dr Johnson updated on pt's status and ok given to proceed with D/C. D/C home with belongings accompanied by .
--- NOTE | 2016-08-20 14:22 | PCM.DC.MED ---
Discharge Summary Date of Service Aug 20, 2016 Dates of Hospitalization Date of Hospital Admission Aug 18, 2016 at 21:04 Date of Discharge: Aug 20, 2016 Providers: Admitting Physician: Tono Fallon MD Primary Care Physician: Arturo Bullock MD Attending Physician: Tono Fallon MD Remedial Reading Teacher: Sarath Baldwin DO Resident Senior: Rodney Dolan DO Diagnosis at Time of Discharge Diagnosis at Time of Discharge Acute encephalopathy Urinary tract infection, acute on chronic Stage III chronic kidney disease Hypertension COPD/asthma DVT prophylaxis Procedures XRay, CTs & MRIs PROCEDURE: CT ANGIO BRAIN NECK TPA IMPRESSION: 1. Normal CT angiogram of the head and neck. PROCEDURE: CT BRAIN (TPA) ([id number]) IMPRESSION: 1. No CT evidence of acute intracranial pathology. 2. Findings and recommendations discussed with Dr. Sol via telephone [phone] at 6:30 pm on 08/18/2016 This study fulfills neurological imaging criteria for inclusion or exclusion of acute stroke therapies based on available published neurological imaging guidelines. Dictated by: Marito Curry M.D. on 08/18/2016 at 18:27 Approved by: Marito Curry M.D. on 08/18/2016 at 18:31 ECG 12 Lead Telemetry in the ER is sinus at a rate of 78 Twelve-lead EKG shows sinus at a rate of 77 and no acute abnormalities Brief History Graciela Ibarra is a 65-year-old female with past medical history of chronic kidney disease stage 3, chronic UTI, hypertension and COPD who was brought in by EMS to the emergency room with loss of consciousness. When seen by EMS the patient was found to be completely unresponsive spell cool diaphoretic and was awakened upon administration of Narcan. In the ED she was found to have acute encephalopathy likely secondary to opiate overdose as well as a UTI. She was initially started on IV rocephin and then switched to fosfomycin 3g PO once given her history of chronic UTI and history with C. diff. Throughout her hospital stay her clinical status was monitored for improvement. She had episodes of severe hypertension with blood presure of 194/66. Discussion with her primary care physician about her blood pressure revealed that she is fairly stable on her home medications which she was on in the hospital. As the patient was in a lot of pain from her osteoarthritis and fibromyalgia, this was thought to be the inciting factor the the spike in blood pressure. Oxycodone 10-325 q6 was initiated based off of her home dose per [facility] [place] [facility] and her blood pressure started to decrease. Hospital Course Graciela Ibarra is a 65 year old female with past medical history of chronic kidney disease stage 3, hypertension and COPD who came to the ED after having loss of conciousness, responsive to narcan and found to have acute encephalopathy likely secondary to opiate overdose. Hospital problem list oulined below. Acute encephalopathy, resolved Patient did respond to Narcan so suspect overdose of her opiates which she did admit to doing to the emergency room physician. -Placed on telemetry and given Narcan every 30 minutes when necessary respiratory rate less than 8. -Obtained case management consultation Urinary tract infection, acute on chronic, present on admission Patient has long history of UTI for which she is prophylactically on fosfomycin 3g PO every 2 weeks - Urine Culture grew Klebsiella pneumoniae -Switched IV rocephin to fosfomycin 3g po once per her home medication for chronic uti Stage III chronic kidney disease, present on admission, chronic - Avoid nephrotoxic agents - IV fluids given Hypertension, essential, present on admission, chronic -Continued home medication regimen COPD/asthma, chronic, present on admission, chronic Continued home medication regimen DVT prophylaxis Placed patient on subcutaneous Lovenox Chronic pain, chronic, ongoing Patient having lower back pain and hand pain from osteoarthritis. Her normal home pain regimen is oxycodone 10-325mg every 4 hours per [facility] in [place] Started Oxycodone 10-325 every 6 hours Exam Vital Signs (Last) Date Time Temp Pulse Resp B/P Pulse Ox O2 Delivery O2 Flow Rate FiO2 08/20/16 12:17 37.4 64 169/60 96 Room Air 08/20/16 07:41 13 08/18/16 18:57 2 Exam General: Middle-aged female, alert and oriented x3, in no acute distress and appropriately responding to questions Head: Normocephalic atraumatic, sclera anicteric Chest: Clear to auscultation, no wheezes, rhonchi or rales Heart: Regular rate and rhythm S1-S2 with a 2/6 systolic ejection murmur Abdomen: Soft, nontender, nondistended bowel sounds present Extremities: No pedal edema bilaterally Skin: No rashes, warm, dry Psych: Normal mood and affect Neuro: Slightly drowsy oriented 3, motor strength is intact bilaterally Item Value Date Time White Blood Count 11.2 th/mm3 H 08/18/160 White Blood Count 9.5 th/mm3 08/19/1632 White Blood Count 6.5 th/mm3 08/20/1615 Hemoglobin 14.1 g/dL 08/18/161849 Hemoglobin 12.4 g/dL 08/19/16531 Hemoglobin 12.6 g/dL 08/20/1615 Hematocrit 40.2 % 08/20/16514 Hematocrit 38.6 % 08/19/16531 Hematocrit 44.1 % 08/18/161849 Platelet Count 255 annelise/L 08/18/161849 Platelet Count 271 annelise/L 08/19/16531 Platelet Count 231 annelise/L 08/20/16514 Prothrombin Time 9.5 sec 08/18/161849 Prothromb Time International Ratio 0.89 ratio 08/18/161849 Urine Color Yellow 08/18/161915 Urine pH 5.5 08/18/161915 Urine Glucose (UA) Negative mg/dL 08/18/161915 Urine Protein Negative mg/dL 08/18/161915 Urine Occult Blood Negative 08/18/161915 Urine Nitrite Positive 08/18/161915 Urine Urobilinogen Normal mg/dL 08/18/161915 Urine Bilirubin Negative 08/18/161915 Urine Leukocyte Esterase Trace 08/18/161915 Urine Ketones Negative mg/dL 08/18/161915 Urine Specific [place] 1.015 08/18/161915 Urine WBC 6-10 /hpf 08/18/161915 Urine RBC 0-2 /hpf 08/18/161915 Urine Epithelial Cells Few /hpf 08/18/161915 Urine Bacteria Many /hpf 08/18/161915 Urine Crystals None seen 08/18/161915 Urine Hyaline Casts None /lpf 08/18/161915 Sodium Level 141 mEq/L 08/18/161849 Sodium Level 142 mEq/L 08/19/1632 Sodium Level 144 mEq/L 08/20/1615 Potassium Level 4.5 mEq/L 08/18/161849 Potassium Level 4.6 mEq/L 08/19/1632 Potassium Level 4.0 mEq/L 08/20/16 0515 Carbon Dioxide Level 22 mmol/L 08/18/16 1850 Carbon Dioxide Level 23 mmol/L 08/19/16 0532 Carbon Dioxide Level 23 mmol/L 08/20/16 0515 Chloride Level 107 mEq/L 08/20/16 0515 Chloride Level 107 mEq/L 08/19/16 0532 Chloride Level 104 mEq/L 08/18/16 1850 Creatinine 1.64 mg/dL H 08/18/16 1850 Creatinine 1.33 mg/dL H 08/19/16 0532 Creatinine 0.88 mg/dL 08/20/16 0515 Glucose Level 130 mg/dL H 08/18/16 1850 Glucose Level 99 mg/dL 08/19/16 0532 Glucose Level 103 mg/dL H 08/20/16 0515 Blood Urea Nitrogen 21 mg/dL 08/18/16 1850 Blood Urea Nitrogen 19 mg/dL 08/19/16 0532 Blood Urea Nitrogen 11 mg/dL 08/20/16 0515 Magnesium Level 1.7 mg/dL 08/20/16 0515 Triglycerides Level 446 mg/dL H 08/19/16 0532 Cholesterol Level 270 mg/dL H 08/19/16 0532 LDL Cholesterol, Calculated 135.800 mg/dL H 08/19/16 0532 VLDL Cholesterol 89.200 mg/dL 08/19/16 0532 HDL Cholesterol 45 mg/dL 08/19/16 0532 Cholesterol/HDL Ratio 6.00 H 08/19/16 0532 Urine Opiates Screen Negative 08/18/161915 Urine Methadone Screen Negative 08/18/161915 Acetaminophen Level < 15.0 ug/mL Rx 08/18/162045 Urine Barbiturates Screen Negative 08/18/161915 Urine Amphetamines Screen Negative 08/18/161915 Urine Benzodiazepines Screen Negative 08/18/161915 Urine Cocaine Metabolite Screen Negative 08/18/161915 Urine Cannabinoids Screen Positive 08/18/161915 Alcohols < 10 mg/dL 08/18/160 Microbiology Results Microbiology 08/19/16 C. difficile DNA Amplification - Final, Complete Not detected 08/20/16 MRSA (PCR) - Final, Complete 08/18/16 Urine Culture - Final, Complete Klebsiella Pneumoniae Discharge Medications Discharge Medications Aspirin (Aspirin) 81 Mg Tablet 81 MG PO DAILY (Reported) Azelastine HCl (Azelastine HCl) 137 Mcg/0.137 Ml [place].pump 2 SPRAY NASAL HS ( Reported) Cetirizine HCl (Zyrtec) 10 Mg Capsule 10 MG PO BID (Reported) Cranberry Conc/C/Bacill Coag (Cranberry Tablet) 1 Each Tablet 1 EACH PO QID ( Reported) Duloxetine (Duloxetine) 30 Mg Capsule.dr 30 MG PO DAILY (Reported) Estradiol (Estrace) 42.5 Gm Cream.appl 1 APPLIC VAGINAL WEEKLY (Reported) Fluticasone Propionate (Fluticasone Propionate Nasal) 16 Gm [place].susp 1 SPRAY NS HS (Reported) Fosfomycin Tromethamine (Monurol) 3 Gm Packet 3 GM PO [id number] (Reported) L. Rhamnosus GG/Inulin (Culturelle Capsule) 10 Billion Cell-200 Mg Cap.sprink 2 EACH PO MORNING (Reported) L. Rhamnosus GG/Inulin (Culturelle Capsule) 10 Billion Cell-200 Mg Cap.sprink 1 EACH PO HS (Reported) Lactobacillus Combination No.4 (Probiotic) 1 Each Capsule 1 EACH PO QID ( Reported) Lisinopril (Lisinopril) 10 Mg Tablet 5 MG PO DAILY Prescribed by: KAYLEEN FERNANDEZ DO Metoprolol Tartrate (Metoprolol Tartrate) 25 Mg Tablet 12.5 MG PO BID (Reported ) Mometasone/Formoterol (Dulera 200 Mcg/5 Mcg Inhaler) 13 Gm Hfa.aer.ad 2 PUFF INHALATION BID (Reported) Montelukast (Singulair) 10 Mg Tablet 10 MG PO HS (Reported) Pantoprazole DR (Pantoprazole DR) 40 Mg Tablet.dr 40 MG PO BID (Reported) Pregabalin (Lyrica) 50 Mg Capsule 50 MG PO BID (Reported) As needed Albuterol HFA (Proair HFA) 8.5 Gm Hfa.aer.ad 2 PUFFS INHALATION Q4H PRN PRN For Shortness of Breath (Reported) Diclofenac Gel (Voltaren Gel) 100 Gm Tube 1 GM TOPICAL QID PRN PRN For Pain ( Reported) Ipratropium [place] (Ipratropium [place] 0.03% Nasal) 30 Ml [place] 2 SPRAY NASAL TID PRN PRN For Congestion (Reported) Ipratropium/Albuterol Sulfate (Iprat-Albut 0.5-3(2.5) mg/3 mL Inhalant Soln) 3 Ml Ampul.neb 3 ML IH Q6 PRN PRN For Shortness of Breath (Reported) Lidocaine HCl (Lidocaine HCl) 5 Ml Jel 1 APPLIC TOPICAL DAILY PRN PRN For Pain ( Reported) apply to feet and lower back Methocarbamol (Methocarbamol) 500 Mg Tablet 1-2 EACH PO BID PRN PRN For Spasm ( Reported) Metoclopramide (Reglan) 5 Mg Tablet 5 MG PO QID PRN PRN For Nausea Prescribed by: KAYLEEN FERNANDEZ, DO Nystatin (Nystatin) 1 Each Powder.ea. 1 APPLIC TOP BID PRN PRN For Itching ( Reported) Sumatriptan Succinate (Sumatriptan Succinate) 100 Mg Tablet 100 MG PO BID PRN PRN Headache (Reported) oxyCODONE-Acetaminophen 10-325 mg (oxyCODONE-Acetaminophen 10-325 mg) 1 Each Tablet 1 EACH PO q4-6hr PRN PRN For Pain (Reported) Additional med instructions You do not have any additional medications added Followup Plan Follow-up plan Check thyroid levels outpatient for patient sweating and tremors Discuss blood pressure management and extra medications if needed. No changes were done in the hospital. Discuss your loose stool with with your doctor. Your stool was tested here in the hospital and C. diff was not detected. Discharge Diet: Other (Recommend dysphagia mechanical diet. Soft foods) Discharge Activity: Home Health Phyical Therapy Patient Instructions Continue home medications Follow up with your primary care provider in 1 week, Dr. Bullock. Follow up and get thyroid levels checked in the outpatient with Dr. Bullock. Discuss if any changes to blood pressure medications are needed. Also follow up with [facility] Check your blood pressure daily. Make sure to be sitting and resting for 5 minutes before checking. Make sure you're hydrating yourself appropriately. We have ordered home health with physical therapy and nursing for 3 x per week reocmmendation. Make sure to utilize this. You have a UTI as well per urine culture. You have been given 3g of fosfomycin while here. Repeat your normal home dose in 2 weeks. Follow-up Provider: Arturo Bullock MD Follow-up with PCP in: 1 week Provider: Deric Simon Follow-up in: 1 week Attending Statement The patient was seen and examined together with Dr. Baldwin on 08/20/2016 and I agree with the history, exam and plan as outlined in the note above. . copies to: Arturo Bullock MD; Deric Simon Malik A DO Aug 20, 2016 14:22 Tono Fallon MD Aug 20, 2016 16:54
--- NOTE | 2016-08-21 12:15 | NUR ---
Spoke with Hilda at [facility] and they are unable to open with patient due to patient's current living conditions. Hilda is forwarding referral to [facility]LL[facility]. Updated SOLAR PROJECT COORDINATION SPECIALIST [employer]
== END 2016-08-20 14:19 | disposition home health service (06) ==
LOC: SED 18:19 → INTOOBSV 21:04 → PCC 21:04 → CCU 08-20 02:00 → PCC 08-20 08:11
PROVIDERS: ADMIT Internal Medicine; ATTEND Specialist
DX: G93.40 Encephalopathy, unspecified (principal); N39.0 Urinary tract infection, site not specified; B96.1 Klebsiella pneumoniae [K. pneumoniae] as the cause of diseases classified elsewhere; I12.9 Hypertensive chronic kidney disease with stage 1 through stage 4 chronic kidney disease, or unspecified chronic kidney disease; N18.3 Chronic kidney disease, stage 3 (moderate); G89.29 Other chronic pain; J44.9 Chronic obstructive pulmonary disease, unspecified; J45.909 Unspecified asthma, uncomplicated; M79.7 Fibromyalgia; F32.9 Major depressive disorder, single episode, unspecified; Z87.440 Personal history of urinary (tract) infections; Z79.2 Long term (current) use of antibiotics; K58.9 Irritable bowel syndrome, unspecified; Z79.891 Long term (current) use of opiate analgesic; Z16.11 Resistance to penicillins
CPT/HCPCS: 36415; 70450; 70496; 70498; 80053; 80061; 81000; 81002; 83735; 85025; 85610; 87086; 87088; 87186; 87493; 87641; 92610; 93005; 94799; 96361; 96365; 96375; 97162; 99291; G0378; G0481; G8978; G8979; G8980; G8996; G8997; G8998; J0696; J1170; J1650; J2310; J7030; Q9967

== ENCOUNTER 2016-09-25 08:56 | Observation (INO) | payer MEDICARE, MEDICAID ==
[~2016-09-25] VITALS: Ht 157.5 cm; Wt 89.5 kg
[2016-09-25] VITALS (19 sets, daily range): BP systolic 89–180; BP diastolic 45–70; PULSE 59–82; RESP 13–18; O2SAT 94–100
[~2016-09-25 08:56] MED LIST changes: +LACT1CAP38 PO; -LOPE2CAP PO; -ONDA4TAB12 PO; -VANC125C3 PO
--- NOTE | 2016-09-25 09:01 | ED.REPORT ---
HPI-Chest Pain 40 and Over Date of Service Sep 25, 2016 ED Provider: Dr. Jain The pt is a 65 y/o female on chronic opiates and with a hx of HTN, COPD, asthma , fibromyalgia and GERD who presents to the ED via EMS complaining of reproducible, intermittent chest pain that radiates to her neck, onset 5 hours ago. She rates the pain 4/10 in severity. The pt was given 324 aspirin and nitro prior to arrival which provided mild relief. Associated sx include mild shortness of breath and hypertension. The pt recorded her BP around 200 at home this morning. She denies cough. Nursing Notes Stated Complaint: CHEST PAIN Nursing Notes Reviewed: Yes Allergies: Coded Allergies: Sulfa (Sulfonamide Antibiotics) (Verified Allergy, Severe, Stop breathing , 09/25/16) ciprofloxacin (Verified Allergy, Severe, hives, 09/25/16) Pentazocine Lactate (Verified Allergy, Intermediate, 09/25/16) morphine (Verified Allergy, Intermediate, Shortness of Breath, 09/25/16) [place] Nut (Verified Allergy, Unknown, 08/18/16) NSAIDS (Non-Steroidal Anti-Inflamma (Verified Allergy, Unknown, GI BLEED, 08/18/16) Phenothiazines (Verified Allergy, Unknown, 08/19/16) pt unsure prochlorperazine (Verified Allergy, Unknown, diarrhea, 08/18/16) propoxyphene (Verified Allergy, Unknown, 08/19/16) Pt not sure tree nut (Verified Allergy, Unknown, 08/18/16) Uncoded Allergies: All nuts (Allergy, Severe, 08/19/16) messes w/ breathing Scheduled Aspirin (Aspirin) 81 Mg Tablet 81 MG PO DAILY Azelastine HCl (Azelastine HCl) 137 Mcg/0.137 Ml [place].pump 2 SPRAY NASAL HS Cetirizine HCl (Zyrtec) 10 Mg Capsule 10 MG PO BID Cranberry Conc/C/Bacill Coag (Cranberry Tablet) 1 Each Tablet 1 EACH PO QID Duloxetine (Duloxetine) 30 Mg Capsule.dr 30 MG PO DAILY Estradiol (Estrace) 42.5 Gm Cream.appl 1 APPLIC VAGINAL WEEKLY Fluticasone Propionate (Fluticasone Propionate Nasal) 16 Gm [place].susp 1 SPRAY NS HS Fosfomycin Tromethamine (Monurol) 3 Gm Packet 3 GM PO [id number] L. Rhamnosus GG/Inulin (Culturelle Capsule) 10 Billion Cell-200 Mg Cap.sprink 2 EACH PO MORNING L. Rhamnosus GG/Inulin (Culturelle Capsule) 10 Billion Cell-200 Mg Cap.sprink 1 EACH PO HS Lactobacillus Combination No.4 (Probiotic) 1 Each Capsule 1 EACH PO QID Lisinopril (Lisinopril) 10 Mg Tablet 5 MG PO DAILY Metoprolol Tartrate (Metoprolol Tartrate) 25 Mg Tablet 12.5 MG PO BID Mometasone/Formoterol (Dulera 200 Mcg/5 Mcg Inhaler) 13 Gm Hfa.aer.ad 2 PUFF INHALATION BID Montelukast (Singulair) 10 Mg Tablet 10 MG PO HS Pantoprazole DR (Pantoprazole DR) 40 Mg Tablet.dr 40 MG PO BID Pregabalin (Lyrica) 50 Mg Capsule 50 MG PO BID Scheduled PRN Albuterol HFA (Proair HFA) 8.5 Gm Hfa.aer.ad 2 PUFFS INHALATION Q4H PRN PRN For Shortness of Breath Diclofenac Gel (Voltaren Gel) 100 Gm Tube 1 GM TOPICAL QID PRN PRN For Pain Ipratropium [place] (Ipratropium [place] 0.03% Nasal) 30 Ml [place] 2 SPRAY NASAL TID PRN PRN For Congestion Ipratropium/Albuterol Sulfate (Iprat-Albut 0.5-3(2.5) mg/3 mL Inhalant Soln) 3 Ml Ampul.neb 3 ML IH Q6 PRN PRN For Shortness of Breath Lidocaine HCl (Lidocaine HCl) 5 Ml Jel 1 APPLIC TOPICAL DAILY PRN PRN For Pain apply to feet and lower back Methocarbamol (Methocarbamol) 500 Mg Tablet 1-2 EACH PO BID PRN PRN For Spasm Metoclopramide (Reglan) 5 Mg Tablet 5 MG PO QID PRN PRN For Nausea Nystatin (Nystatin) 1 Each Powder.ea. 1 APPLIC TOP BID PRN PRN For Itching Sumatriptan Succinate (Sumatriptan Succinate) 100 Mg Tablet 100 MG PO BID PRN PRN Headache oxyCODONE-Acetaminophen 10-325 mg (oxyCODONE-Acetaminophen 10-325 mg) 1 Each Tablet 1 EACH PO q4-6hr PRN PRN For Pain General Time Seen by MD: 09:10 Chief Complaint Chest pain Hx Obtained From: Patient Arrived By: Ambulance Sudden in Onset?: Yes Onset Occurred: 5 - 8 hours ago Symptom Duration: Intermittent Location: : Substernal Quality: Painful Radiation: : Neck Severity: Current: Moderate Severity: Maximum: Moderate Risk Factors HEART Score HEART for MACE Score: 4-7 (mod risk 12%-16.6%) (Heart score of 4) Past Medical History Past Medical History Migraines GERD IBS Insomnia Depression Recurrent syncope - w/extensive workup COPD Asthma Chornic low back pain Recurrent UTI on chronic prophylactic abx Polyneuropathy SHARONDA Moderate aoritc insufficiency Mild diastolic dysfunction Recurrent c.diff enterocolitis HTN Lumbar radiculopathy Dysthymic diorder Fundoplication Pseudophakia Hyperlipidemia Patient is allergic to Cipro and Sulfa. Past Surgical History Reports: Appendectomy, Cholecystectomy, Hysterectomy Family History noncontributory Smoking History Former Smoker (60 pack a year smoking hx; quit in 2011) Social History Other Social History: Good social support, Local resident Ambulatory Status Independent Review of Systems Respiratory: Reports: Shortness of breath (mild), Denies: Non-productive cough Cardiovascular: Reports: Chest pain Musculoskeletal: Reports: Neck pain Complete sys rev & neg: except as marked. Physical Exam Initial Vital Signs Vital Signs (First) Date Time Temp Pulse Resp B/P Pulse Ox O2 Delivery O2 Flow Rate FiO2 09/25/16 09:15 36.6 62 14 137/50 100 Room Air Initial VS: Reviewed Head / Eyes: Atraumatic, Normocephalic Neck: Supple, Non-tender, Full range of motion Extremities: Vascular intact, Neuro intact, No swelling, No tenderness Skin: Warm, Dry, No cyanosis Neurologic: Alert, Oriented, Nonfocal General/Constitutional: Awake, Alert, No acute distress, Well appearing, Cooperative Respiratory / Chest: Atraumatic, Breath sounds NL, Breath sounds = bilat, No respiratory distress, No rales, No rhonchi, No wheezing Tenderness to palpation on sternum Cardiovascular: Heart rate NL, Regular rhythm, Heart sounds NL, No gallop, No murmurs, No rubs Abdomen: Atraumatic, Soft, Non-tender, No guarding, No rebound Interpretation & Diagnostics Lab Results Interpretation Result Diagram: 09/25/16 0916 09/25/16 0916 Test 09/25/16 09:16 White Blood Count 10.0th/mm3 (3.8-10.1) Red Blood Count 4.94mil/mm3 (3.90-5.20) Hemoglobin 13.8g/dL (12.0-15.6) Hematocrit 42.9% (35.0-46.0) Mean Corpuscular Volume 86.8fL (81-100) Mean Corpuscular Hemoglobin 27.9pg (27.0-35.0) Mean Corpuscular Hemoglobin Concent 32.2% (32.0-37.0) Red Cell Distribution Width 13.9% (12.3-15.4) Platelet Count 297bil/L (150-400) Neutrophils (%) (Auto) 42.5% (40-74) Lymphocytes (%) (Auto) 46.1% (14-46) Monocytes (%) (Auto) 8.0% (4-12) Eosinophils (%) (Auto) 2.3% (0-5) Basophils (%) (Auto) 0.8% (0-3) D-Dimer < 0.50mg/L FEU (<0.50) Sodium Level 142mEq/L (134-144) Potassium Level 4.7mEq/L (3.5-5.2) Chloride Level 103mEq/L (97-108) Carbon Dioxide Level 23mmol/L (18-29) Blood Urea Nitrogen 22mg/dL (8-27) Creatinine 1.03mg/dL (0.57-1.00) Estimat Glomerular Filtration Rate 77mL/min (>59) Glucose Level 123mg/dL (60-99) Calcium Level 9.7mg/dL (8.5-10.1) Magnesium Level 1.9mg/dL (1.6-2.6) Total Bilirubin 0.2mg/dL (0.0-1.2) Aspartate Amino Transf (AST/SGOT) 19U/L (0-50) Alanine Aminotransferase (ALT/SGPT) 15U/L (0-32) Alkaline Phosphatase 90U/L (25-165) Troponin T 0.010ug/L (0.0-0.011) Pro-B-Type Natriuretic Peptide 509.5pg/mL (0-287) Total Protein 7.1g/dL (6.4-8.4) Albumin 4.2g/dL (3.4-5.0) ECG Interpretation ECG Interpretation: Normal sinus rhythm. Rate 58. No change from previous ECG on 08/20/16. Time: 09:21 Interpreted by: ED physician X-Ray Chest Interpretation Chest Xray Interpretation: IMPRESSION: 1. Patchy indistinct opacities in the right lung appear slightly decreased from the prior study. These are nonspecific and may reflect sequelae of recurrent pneumonia but short-term followup is recommended to demonstrate resolution. 2. Findings compatible with COPD redemonstrated. Dictated by: Daquan Cook M.D. on 09/25/2016 at 9:33 Approved by: Daquan Cook M.D. on 09/25/2016 at 9:36 View: Portable, 1 view Interpretation / Wet Read by: Interpret - Radiologist Re-Eval/Medical Decision Med Decision/Clinical Course Heart score of 4. Pain resolved after nitroglycerin. EKG and troponin reassuring, however given her risk factors we will plan to admit for an inpatient cardiac rule out. Source of Hx: Old records Time of Eval: 10:11 Patient Status: Condition improved Re-Evaluation/Progress Note: Rechecked pt. Her chest pain is nonw 0/10 in severity. Discussed lab results, imaging results,diagnosis and plan to admit. Pt understands and agrees with the plan for admission. All questions addressed. Consultation : Referral / Consult Name: Itzel Interiano DO Consulted With: Hospitalist Call Returned at: 11:16 Airline Ticket Agent: Will see patient, Agrees with eval, Agrees with plan, Accepts admit Counseled Regarding: Diagnosis, Lab results, Need for admission Discharge & Departure Primary Impression: Chest pain Chest pain type: unspecified Qualified Code: R07.9 - Chest pain, unspecified Disposition: ADMITTED TO HOSPITAL Discharge Condition All VS Reviewed: Yes Referrals: Arturo Bullock MD (PCP) Scribe Attestation Portions of this note were transcribed by Robin Haddad. I,, personally performed the history, physical exam and medical decision-making;I reviewed and confirmed the accuracy of the information in the transcribed note. Signed by Jeffrey Pisano. 09/25/16 copies to: Arturo Bullock MD, Timothy S DO Sep 25, 2016 09:01 Robin Haddad Sep 25, 2016 09:09 Michi Jain DO Sep 25, 2016 09:01 Robin Haddad Sep 25, 2016 09:09
[2016-09-25] MEDS ORDERED: Ondansetron 2 mg/mL 2 mL Inj IVPUSH ONE (09:20)
[2016-09-25] MEDS ORDERED: fentaNYL-PF 50 mCg/mL 2 mL Inj IVPUSH PRN (09:20)
[2016-09-25 09:24] LABS: BASOPHILS % (AUTO) 0.8 % (0-3); EOSINOPHILS % (AUTO) 2.3 % (0-5); Mean Corpuscular Hemoglobin 27.9 pg (27.0-35.0); Mean Corpuscular Volume 86.8 fL (81-100); NEUTROPHILS % (AUTO) 42.5 % (40-74); Platelet Count 297 bil/L (150-400)
--- NOTE | 2016-09-25 09:39 | DRSVH ---
PROCEDURE: X-RAY CHEST ONE VIEW, PORTABLE ([id number]) INDICATIONS: chest pain TECHNIQUE: One view of the chest was acquired. COMPARISON: [facility], CR, CHEST 1VW (PORTABLE), 09/06/2013, 11:02. [facility], CT, CHEST ANGIO-PE, 09/06/2013, 13:24. [facility], CR, XR CHEST 1VW (PORTABLE), 05/15, 10:19. FINDINGS: Surgical changes and devices: None. Lungs and pleura: No pleural effusions or pneumothorax. There is hyperinflation of the lungs with f lattening of the hemidiaphragms compatible with COPD. There are a few indistinct patchy opacities in the right lung which appear decreased in prominence from the prior study. Mediastinum: Mediastinal contours appear normal. Heart size is normal. Bones and chest wall: No suspicious bony lesions. Overlying soft tissues appear unremarkable. IMPRESSION: 1. Patchy indistinct opacities in the right lung appear slightly decreased from the prior study. Th yoselin are nonspecific and may reflect sequelae of recurrent pneumonia but short-term followup is recomm ended to demonstrate resolution. 2. Findings compatible with COPD redemonstrated. Dictated by: Daquan Cook M.D. on 09/25/2016 at 9:33 Approved by: Daquan Cook M.D. on 09/25/2016 at 9:36
[2016-09-25 09:54] LABS: TROPONIN T 0.01 ug/L (0.0-0.011)
[2016-09-25 10:05] LABS: Magnesium 1.9 mg/dL (1.6-2.6)
[2016-09-25] MEDS ORDERED: Alum-Mag Hydrox-Simeth 30 mL Suspension PO PRN ×2 (11:20→13:30)
[2016-09-25] MEDS: Ondansetron 2 mg/mL 2 mL Inj IVPUSH PRN ×2 (11:32→15:54)
[2016-09-25] MEDS ORDERED: Heparin 25K Unit/500mL 0.45 NS 25,000 UNIT in IV Premix 1 EACH IV ONE (11:35)
[2016-09-25] MEDS ORDERED: Heparin 5,000 Unit/mL Inj IVPUSH ONE (11:35)
[2016-09-25] MEDS ORDERED: Albuterol-Ipratropium 3 mL Inhalation Solution NEB ONE (11:35)
[2016-09-25] MEDS ORDERED: Polyethylene Glycol (PEG) 17 Gm Powder PO PRN (13:30)
[2016-09-25] MEDS ORDERED: oxyCODONE-Acetamin 10-325 mg Tablet PO PRN (13:40)
[2016-09-25] MEDS ORDERED: Lidocaine 2% 5 mL Topical Jelly TOPICAL PRN (13:40)
[2016-09-25] MEDS ORDERED: Albuterol 2.5 mg/3 mL Inhalation Solution NEB PRN (13:42)
[2016-09-25] MEDS ORDERED: Heparin 25K Unit/500mL 0.45 NS 25,000 UNIT in IV Premix 1 EACH IV SCH (13:45)
[2016-09-25] MEDS ORDERED: Heparin 5,000 Unit/mL Inj IVPUSH PRN (13:45)
[2016-09-25] MEDS ORDERED: Heparin 1,000 Unit/mL 10 mL Inj ONE (14:09)
[2016-09-25] MEDS ORDERED: Heparin 10,000 Unit/1,000 mL NS Premix IV ONE (14:09)
[2016-09-25] MEDS ORDERED: Heparin 1,000 Units/500 mL NS Premix IV ONE (14:09)
--- NOTE | 2016-09-25 14:19 | PCM.CHPCAR ---
Consult Subjective Date of service Sep 25, 2016 Date of admit Sep 25, 2016 at 11:59 Provider Requesting Consult Requesting Provider: Michi Jain DO Primary Care Physician Primary Care Physician: Arturo Bullock MD Chief Complaint chest pain History of Present Illness 65-year-old woman with prior history of smoking, diet controlled diabetes, and hypertension admitted with unstable angina. Patient states that she was in her usual state of health until today morning when she woke up at 4 AM with chest pressure. The chest pain was persistent and it did resolve with one nitroglycerin sublingual in the ER. It then reoccurred and resolved with 2 sublingual nitroglycerin. It has now recurred and is at 5 out of 10 level. There is associated nausea but denies vomiting or diarrhea. The chest pressure does get worse with exertion to the bathroom and is better with rest. She has chronic dyspnea from her COPD. Denies palpitations, lightheadedness or syncope. Review of Systems Review of Systems Per history of present illness and otherwise unremarkable PMH Past Medical History # Hypertension # COPD, mild: Quit smoking in 2011 # Diet-controlled diabetes Bedside Blood Glucose: 103 Scheduled Aspirin (Aspirin) 81 Mg Tablet 81 MG PO DAILY (Reported) Azelastine HCl (Azelastine HCl) 137 Mcg/0.137 Ml [place].pump 2 SPRAY NASAL HS ( Reported) Cetirizine HCl (Zyrtec) 10 Mg Capsule 10 MG PO BID (Reported) Cranberry Conc/C/Bacill Coag (Cranberry Tablet) 1 Each Tablet 1 EACH PO QID ( Reported) Duloxetine (Duloxetine) 30 Mg Capsule.dr 30 MG PO DAILY (Reported) Estradiol (Estrace) 42.5 Gm Cream.appl 1 APPLIC VAGINAL WEEKLY (Reported) Fluticasone Propionate (Fluticasone Propionate Nasal) 16 Gm [place].susp 1 SPRAY NS HS (Reported) Fosfomycin Tromethamine (Monurol) 3 Gm Packet 3 GM PO [id number] (Reported) L. Rhamnosus GG/Inulin (Culturelle Capsule) 10 Billion Cell-200 Mg Cap.sprink 2 EACH PO MORNING (Reported) L. Rhamnosus GG/Inulin (Culturelle Capsule) 10 Billion Cell-200 Mg Cap.sprink 1 EACH PO HS (Reported) Lactobacillus Combination No.4 (Probiotic) 1 Each Capsule 1 EACH PO QID ( Reported) Lisinopril (Lisinopril) 10 Mg Tablet 5 MG PO DAILY Metoprolol Tartrate (Metoprolol Tartrate) 25 Mg Tablet 12.5 MG PO BID (Reported ) Mometasone/Formoterol (Dulera 200 Mcg/5 Mcg Inhaler) 13 Gm Hfa.aer.ad 2 PUFF INHALATION BID (Reported) Montelukast (Singulair) 10 Mg Tablet 10 MG PO HS (Reported) Pantoprazole DR (Pantoprazole DR) 40 Mg Tablet.dr 40 MG PO BID (Reported) Pregabalin (Lyrica) 50 Mg Capsule 50 MG PO BID (Reported) Scheduled PRN Albuterol HFA (Proair HFA) 8.5 Gm Hfa.aer.ad 2 PUFFS INHALATION Q4H PRN PRN For Shortness of Breath (Reported) Diclofenac Gel (Voltaren Gel) 100 Gm Tube 1 GM TOPICAL QID PRN PRN For Pain ( Reported) Ipratropium [place] (Ipratropium [place] 0.03% Nasal) 30 Ml [place] 2 SPRAY NASAL TID PRN PRN For Congestion (Reported) Ipratropium/Albuterol Sulfate (Iprat-Albut 0.5-3(2.5) mg/3 mL Inhalant Soln) 3 Ml Ampul.neb 3 ML IH Q6 PRN PRN For Shortness of Breath (Reported) Lidocaine HCl (Lidocaine HCl) 5 Ml Jel 1 APPLIC TOPICAL DAILY PRN PRN For Pain ( Reported) apply to feet and lower back Methocarbamol (Methocarbamol) 500 Mg Tablet 1-2 EACH PO BID PRN PRN For Spasm ( Reported) Metoclopramide (Reglan) 5 Mg Tablet 5 MG PO QID PRN PRN For Nausea Nystatin (Nystatin) 1 Each Powder.ea. 1 APPLIC TOP BID PRN PRN For Itching ( Reported) Sumatriptan Succinate (Sumatriptan Succinate) 100 Mg Tablet 100 MG PO BID PRN PRN Headache (Reported) oxyCODONE-Acetaminophen 10-325 mg (oxyCODONE-Acetaminophen 10-325 mg) 1 Each Tablet 1 EACH PO q4-6hr PRN PRN For Pain (Reported) Current Inpatient Medications Current Medications Nitroglycerin 0.4 mg Q5MIN PRN SL Last administered on 09/25/16t 11:31; Admin Dose 0.4 MG; Start 09/25/16 at 09:20; Stop 09/25/16 at 11:32; Status DC Fentanyl Citrate 25 mcg Q15MIN PRN IVPUSH; Start 09/25/16 at 09:20; Stop at 13:56; Status DC Al Hydrox/Mg Hydrox/Simethicone 30 ml Q6 PRN PO Last administered on 09/25/16 11:30; Admin Dose 30 ML; Start 09/25/16 at 11:20 Ondansetron HCl Dose range: 4 mg to 8 mg Q4H PRN IVPUSH Last administered on 11:32; Admin Dose 4 MG; Start 09/25/16 at 11:20 Acetaminophen 975 mg Q6H PRN PO; Start 09/25/16 at 11:20 Al Hydrox/Mg Hydrox/Simethicone 30 ml Q6H PRN PO; Start 09/25/16 at 13:30 Senna 17.2 mg BID PRN PO; Start 09/25/16 at 13:30 Polyethylene Glycol 17 gm DAILY PRN PO; Start 09/25/16 at 13:30 Nitroglycerin 0.4 mg Q5MIN PRN SL Last administered on 09/25/16 13:44; Admin Dose 0.4 MG; Start 09/25/16 at 13:35 Morphine Sulfate 1 mg Q3H PRN IVPUSH; Start 09/25/16 at 13:35; Stop 09/25/16 at 13:45; Status DC Albuterol 2.5 mg Q4H PRN NEB; Start 09/25/16 at 13:42 Diclofenac Sodium 1 applic QID PRN TOPICAL; Start 09/25/16 at 13:40; Status UNV Duloxetine HCl 30 mg DAILY PO; Start 09/26/16 at 08:30 Fluticasone Propionate 2 spray HS NASAL; Start 09/25/16 at 21:00 Lidocaine HCl 1 ml DAILY PRN TOPICAL; Start 09/25/16 at 13:40 Lisinopril 10 mg DAILY PO; Start 09/26/16 at 08:30 Metoclopramide HCl 5 mg Q6H PRN PO; Start 09/25/16 at 14:00 Metoprolol Tartrate 12.5 mg BID PO; Start 09/25/16 at 20:30 Montelukast Sodium 10 mg HS PO; Start 09/25/16 at 21:00 Oxycodone/ Acetaminophen 1 tab DAILY PRN PO; Start 09/25/16 at 13:40; Stop 01/01 at 13:50; Status DC Pantoprazole 40 mg BID PO; Start 09/25/16 at 20:30 Pregabalin 50 mg BID PO; Start 09/25/16 at 20:30 Non-Formulary Medication 2 spray HS NASAL; Start 09/25/16 at 21:00; Status UNV Non-Formulary Medication 10 mg BID PO; Start 09/25/16 at 20:30; Status UNV Heparin Sodium (Porcine) Per Protocol for a... PRN PRN IVPUSH; Start 09/25/16 at 13:45 Oxycodone HCl 5 mg Q4H PRN PO; Start 09/25/16 at 13:50 Cyclobenzaprine HCl 10 mg Q8H PRN PO; Start 09/25/16 at 13:55 Allergies: Coded Allergies: Sulfa (Sulfonamide Antibiotics) (Verified Allergy, Severe, Stop breathing , 09/25/16) ciprofloxacin (Verified Allergy, Severe, hives, 09/25/16) Pentazocine Lactate (Verified Allergy, Intermediate, 09/25/16) morphine (Verified Allergy, Intermediate, Shortness of Breath, 09/25/16) [place] Nut (Verified Allergy, Unknown, 08/18/16) NSAIDS (Non-Steroidal Anti-Inflamma (Verified Allergy, Unknown, GI BLEED, 08/18/16) Phenothiazines (Verified Allergy, Unknown, 08/19/16) pt unsure prochlorperazine (Verified Allergy, Unknown, diarrhea, 08/18/16) propoxyphene (Verified Allergy, Unknown, 08/19/16) Pt not sure tree nut (Verified Allergy, Unknown, 08/18/16) Uncoded Allergies: All nuts (Allergy, Severe, 08/19/16) messes w/ breathing Family History Family History Mom age 64 from heart failure Social History Hx Alcohol Use: NoHx Substance Use: NoHx Tobacco Use: Yes Smoking Status: Former Smoker (60 pack a year smoking hx; quit in 2011) Exam Vital Signs Vital Sign - Last Date Time Temp Pulse Resp B/P Pulse Ox O2 Delivery O2 Flow Rate FiO2 09/25/16 13:20 70 09/25/16 12:37 36.5 17 180/70 96 Room Air Objective General appearance: No apparent distress, well-nourished, pleasant, cooperative HEET: Normocephalic atraumatic, no scleral icterus, tongue midline, mucous membranes moist Neck: supple Cardiovascular: RRR, normal S1 and normal S2, no murmurs/ rubs/gallops, PMI nondisplaced, no JVD, no peripheral edema Respiratory: Good aeration, CTAB Abdomen: Soft, nontender, obese, + bowel sounds Neuro: Alert, no facial droop, tongue midline, no gross motor deficits Psych: appropriate affect Lab and Diagnostics Result Diagram: 09/25/1691509/25/16915 Assessment & Plan Assessment 65-year-old woman with prior history of smoking, diet controlled diabetes, and hypertension admitted with unstable angina: # Unstable Angina: Patient having typical story for unstable angina. It is worse with mild exertion and improved with rest or nitroglycerin. Patient did have a cath in 2012 that showed non-obstructive coronary disease in the LAD. Given that she remain symptomatic, I recommended to her that she proceed with coronary angiography with possible PCI. Recommendations as below: - Continue aspirin 81 mg every day - Continue heparin drip - Started atorvastatin 40 mg daily at bedtime - Start lisinopril 20 mg daily (or losartan 50mg qhs) and uptitrate to twice a day to get goal BP < 130/80 - Patient congratulated on successful smoking cessation. - Left heart cath with possible PCI today. Informed consent obtained after risks and benefits were discussed in great detail. Patient decides to proceed with the cath # HTN: poorly controlled. - Lisinopril as above # Diabetes: diet controlled per patient. - Diabetic diet and defer to primary team for management Eagle Hsu MD Sep 25, 2016 14:19
--- NOTE | 2016-09-25 14:20 | NUR ---
Admission: Pt admitted with chest pain, arrived to unit at approx 1230, continues to have active chest pain. Sublingual Nitro given, with minor relief achieved. Unable to complete admission at this time as pt had multiple MDs in room, and then left unit for label folder. Report called to [facility].
[2016-09-25] MEDS ORDERED: fentaNYL-PF 50 mCg/mL 2 mL Inj ONE ×2 (14:41→15:26)
[2016-09-25] MEDS ORDERED: Verapamil 2.5 mg/mL 2 mL Inj ONE (14:53)
[2016-09-25] MEDS ORDERED: hydrALAZINE 20 mg/mL Inj ONE (15:12)
--- NOTE | 2016-09-25 15:53 | PCM.CVCATH ---
Cardiac Cath Report Date of Service Sep 25, 2016 Primary Indication Unstable angina Procedure coronary angiography, left heart cath Vascular Access Right radial artery using 5 Fr sheath, closure with TR band. Diagnostic Catheters Left main: JL3.5 5 Fr after failure to engage with [place] 4.0, 5 Fr RCA: JR4 5Fr after failure to engage with [place] 4.0, 5 Fr Procedure Details Coronary angiography details: The patient was brought to the cardiac catheterization lab in the fasting state. Patient was laid supine on the cardiac catheterization table and the right forearm was prepped and draped in the usual sterile fashion. One percent Xylocaine was infiltrated over the right radial artery. Vascular access was then achieved under ultrasound guidance. Guide wire was used to advance the catheter through the sheath and up into aortic sinuses. After coronary angiography was completed, guide wire was advanced through the catheter ahead of the tip of the catheter and the guide wire along with the catheter were pulled together out of the sheath. Medications/Fluoro Time Medications administered: 1.Fentanyl: 125 mcg IV 2. Midazolam: 4 mg IV 3. Heparin: 5000 units IV 4. Nitroglycerin: 950 mcg IA 5. Verapamil: 1 mg IA 6. Hydralazine: 10mg IV Fluoroscopy Time: 13.7 minutes, 1366 mGy Contrast (Isovue): 50 mls Blood loss: 10 mls Findings 1) Coronary angiography: Right dominance a. Left main is angiographically normal b. LAD is normal caliber and giving rise to a large caliber diagonal artery. Both LAD and diagonal artery have mild luminal irregularities. c. LCx is normal caliber vessel giving rise to two small obtuse marginal (OM ) arteries and a large OM3. The OM1 appears to have ostial disease but it is very small caliber vessel. The LCx and OM3 have mild luminal irregularities. d. RCA is normal caliber with mild luminal irregularities. 2) Left Heart catheterization: a. LVEDP is normal at 15 mmHg. b. No significant transaortic gradient on catheter pull-back. Complications There were no periprocedural complications identified. Summary 1) No obstructive disease in the major epicardial coronary arteries. 2) Hypertension present throughout the study (BP 160s-170s/50s-60s) Recommendations 1) Maximize management of hypertension 2) Continue with primary prevention of coronary artery disease copies to: Arturo Bullock MD, Bhrigu R MD Sep 25, 2016 15:53
[2016-09-25] MEDS ORDERED: Sodium Chloride LOK Flush 10 mL Syringe IVFLUSH PRN (17:35)
[2016-09-25] MEDS ORDERED: Atropine 1 mg/10 mL (Code) Syringe IVPUSH PRN (17:35)
[2016-09-25] MEDS ORDERED: 0.9% Sodium Chloride 250 ML BOLUS IV PRN (17:35)
[2016-09-25] MEDS ORDERED: Ondansetron 2 mg/mL 2 mL Inj IVPUSH PRN (17:35)
[2016-09-25] MEDS ORDERED: 0.9% Sodium Chloride 400 ML (4 HRS) IV ONE (17:35)
[2016-09-25] MEDS: AZELASTINE NASAL SCH ×2 (18:03→20:49)
--- NOTE | 2016-09-25 18:11 | NUR ---
[facility] heart cath recovery Pt had stable recovery post heart cath, VSS on RA, right wrist site show no signs of bleeding. Some firm tender tissue was noted on patients forearm above the puncture site, MD aware and after he assessed it was determined to not be a hematoma, it didn't grow or change throughout recovery. Pt stated verbal understanding of activity restrictions. Pt transferred to [id number] with Huyen Estrada RN. Patient belongings were put in pt closet in room.
--- NOTE | 2016-09-25 18:55 | NUR ---
Post heart cath: Pt returned to unit s/p heart cath, no intervention completed. VSS, Losartan given per orders, NS to infuse at 100mL/hr for four hours. Wrist site is stable/no hematoma noted, arm elevated on pillow, ice pack to tender swollen area. Care ongoing.
[2016-09-25] MEDS: Pantoprazole 40 mg ER24 Tablet PO SCH (20:47)
[2016-09-25] MEDS ORDERED: Fluticasone 0.05% 15 Spray/2 Gm 16 Gm Nasal Spray NASAL SCH (21:00)
--- NOTE | 2016-09-25 22:13 | PCM.HPMED ---
Subjective Date of Service Sep 25, 2016 Primary Provider: Admitting Physician: Itzel Interiano DO Primary Care Physician: Arturo Bullock MD Attending Physician: Itzel Interiano DO Admit Status: From the Emergency Department, Admit to Blue Team Chief Complaint: chest pain History of Present Illness: 65-year-old woman with past medical history of smoking, DM 2 (diet controlled), obesity, mild diastolic heart failure grade 2 and hypertension is presenting to the ER with chest pressure. Patient woke up in the middle of the night with chest pain and shortness of breath, went to her doctor's office was given aspirin with chest pressure, pain did not resolve it mitral initially in the ER. Pain is radiating to neck. But later prior to the arriving to the floor her pain has recurred. There is associated nausea but denies vomiting or diarrhea. She has exertional dyspnea. She is seen after she underwent cardiac catheterization by Dr. Simental, she is fairly drowsy and complaints of right arm swelling, she also states that her pain is completely resolved since going to the parking lot laborer. She denies dyspnea, headaches but is endorsing fatigue and wanting to sleep. Patient states that she has not taken her a.m. medications prior to coming to the ER. In the ER aspirin and nitroglycerin were given. Patient apparently had an abnormal stress test but the Catheterization was normal in 07/21/12. EKG, troponins, chest x-ray are negative for acute changes. Chest x-ray did show some COPD/nonspecific changes. Off note patient's echocardiogram from 12/19/15 showed 60-65% EF, moderate aortic regurgitation, diastolic. 2 dysfunction. Patient is admitted to the blue team for unstable angina. Review of Systems: Complete review of systems performed, pertinent positives and negatives per history of present illness, all other systems reviewed and are negative. Allergies Coded Allergies: Sulfa (Sulfonamide Antibiotics) (Verified Allergy, Severe, Stop breathing , 09/25/16) ciprofloxacin (Verified Allergy, Severe, hives, 09/25/16) Pentazocine Lactate (Verified Allergy, Intermediate, 09/25/16) morphine (Verified Allergy, Intermediate, Shortness of Breath, 09/25/16) [place] Nut (Verified Allergy, Unknown, 08/18/16) NSAIDS (Non-Steroidal Anti-Inflamma (Verified Allergy, Unknown, GI BLEED, 08/18/16) Phenothiazines (Verified Allergy, Unknown, 08/19/16) pt unsure prochlorperazine (Verified Allergy, Unknown, diarrhea, 08/18/16) propoxyphene (Verified Allergy, Unknown, 08/19/16) Pt not sure tree nut (Verified Allergy, Unknown, 08/18/16) Uncoded Allergies: All nuts (Allergy, Severe, 08/19/16) messes w/ breathing Home Medications Aspirin, azelastine, cetirizine, duloxetine, Restoril cream, Flonase, fosfomycin every 2 weeks, lisinopril, metoprolol, mometasone, montelukast, pantoprazole, pregabalin, DuoNeb's, Levoxine, sumatriptan, oxycodone PMH Hypertension, hyperlipidemia, obesity, COPD, CHF diastolic, lumbar radiculopathy , dysthymia, moderate aortic stenosis, recurrent C. difficile, chronic low back pain, recurrent UTI, SHARONDA, polyneuropathy Surgical History Appendectomy, cholecystectomy, hysterectomy, tonsillectomy Family History She has no family history of diabetes or heart disease Social History Hx Alcohol Use: No Hx Substance Use: No Hx Tobacco Use: Yes Smoking Status: Former Smoker (60 pack a year smoking hx; quit in 2011) Living Arrangement: with Family Exam Vital Signs Vital Sign - Last Date Time Temp Pulse Resp B/P Pulse Ox O2 Delivery O2 Flow Rate FiO2 09/25/16 13:20 70 09/25/16 12:37 36.5 17 180/70 96 Room Air Exam General: No acute distress, , appears drowsy HEENT: Normocephalic, atraumatic. External ears without defect. I said mildly injected Pupils equal, round, and reactive to light and accommodation. Anicteric sclerae, moist conjunctivae, and no lid lag. Oropharynx free of erythema and cobble stoning with moist mucosa. Neck: Supple with full range of motion. No jugular venous distension. No bruits. No lymphadenopathy or thyromegaly. Cardiovascular: Regular rate and rhythm with soft systolic murmur Pulmonary: Clear to auscultation bilaterally with no crackles, wheezes, or rhonchi. Normal respiratory effort with no use of accessory muscles. Abdomen: Bowel tones present. Soft, mildly tender diffusely, nondistended. No hepatosplenomegaly or masses appreciated. Extremities: No clubbing, cyanosis, edema, or lymphadenopathy appreciated. Skin: Normal temperature, turgor, and texture; no rash, ulcers, or subcutaneous nodules appreciated. Neurological: No focal deficits Psychiatric: Normal mood and affect. Alert and oriented to person, place, and time. Lab and Diagnostics Result Diagram: 09/25/1691509/25/16915 X-Rays, CTs and MRIs PROCEDURE: X-RAY CHEST ONE VIEW, PORTABLE ([id number]) INDICATIONS: chest pain IMPRESSION: 1. Patchy indistinct opacities in the right lung appear slightly decreased from the prior study. These are nonspecific and may reflect sequelae of recurrent pneumonia but short-term followup is recommended to demonstrate resolution. 2. Findings compatible with COPD redemonstrated. Dictated by: Daquan Cook M.D. on 09/25/2016 at 9:33 Approved by: Daquan Cook M.D. on 09/25/2016 at 9:36 Assessment & Plan Chest pain, acute present on admission -- Patient had a heart score of 4, history of hypertension, obesity, hyperlipidemia, CHF, diet controlled diabetes. She had pain in the ER that resolved with nitroglycerin. Due to risk factors, she was put on a heparin drip , cardiology was consulted from the patient went to the parking lot laborer, and according to Dr. Simental there were no abnormal findings. Patient's heparin drip was continued on the telemetry floor. -- Discontinue heparin drip -- Treat her hypertension with the losartan 50 mg by mouth twice a day per Dr. Simental. However patient has not taken her a.m. medications, expect that with the lisinopril and metoprolol on board she would probably need less than losartan current dose. -- We will observe how she does overnight on losartan 50 mg prior to making additional medication changes. -- She states that she is not well controlled at home, maybe just able to increase her home lisinopril for discharge Hypertension chronic uncontrolled -- Management as above. Plan to continue metoprolol and lisinopril at discharge Hyperlipidemia chronic active -- Lipid panel is ordered, will consider a statin based on the result COPD chronic active -- Continue when necessary DuoNeb's home medication -- Continue home medication mometasone Diastolic heart failure chronic stable -- Continue metoprolol, lisinopril, we will consider statin Chronic low back pain stable -- She still sedated from her procedure, we will order her oxycodone in the a.m. -- Continue Robaxin when necessary Chronic recurrent UTI stable -- She is not due for her biweekly fosfomycin at this time. Chronic allergies stable -- Continue azelastine montelukast, cetirizine, Flonase home medications CODE STATUS: Full code Alternate decision-maker Patient is admitted for 23 hour observation. Pain Evaluation: Adequate Pain Control Resuscitation Status: CPR: Attempt Resuscitation Time spent 45 minutes Itzel Interiano DO Sep 25, 2016 13:41
[2016-09-26] VITALS (7 sets, daily range): BP systolic 103–149; BP diastolic 51–71; PULSE 56–78; RESP 15–18; O2SAT 95–97
[2016-09-26 01:40] LABS: BASOPHILS % (AUTO) 0.5 % (0-3); EOSINOPHILS % (AUTO) 1.5 % (0-5); MONOCYTES % (AUTO) 6.4 % (4-12); Mean Corpuscular Hemoglobin 27.9 pg (27.0-35.0); Mean Corpuscular Volume 87.5 fL (81-100); NEUTROPHILS % (AUTO) 60.9 % (40-74); Platelet Count 271 bil/L (150-400)
--- NOTE | 2016-09-26 06:37 | NUR ---
Pain c/o chronic back pain x3 this shift. Prn oxycodone and Flexeril administered and effective. Currently resting without any complaints.
[2016-09-26] MEDS: Pantoprazole 40 mg ER24 Tablet PO SCH (07:51)
[2016-09-26] MEDS ORDERED: DULoxetine 30 mg DR Capsule PO SCH (08:30)
--- NOTE | 2016-09-26 11:14 | PCM.PNCARD ---
Subjective Date of service Sep 26, 2016 Chief Complaint chest pain History of Present Illness 65-year-old woman with prior history of smoking, diet controlled diabetes, and hypertension admitted with unstable angina. Patient states that she was in her usual state of health until today morning when she woke up at 4 AM with chest pressure. The chest pain was persistent and it did resolve with one nitroglycerin sublingual in the ER. It then reoccurred and resolved with 2 sublingual nitroglycerin. It has now recurred and is at 5 out of 10 level. There is associated nausea but denies vomiting or diarrhea. The chest pressure does get worse with exertion to the bathroom and is better with rest. She has chronic dyspnea from her COPD. Denies palpitations, lightheadedness or syncope. Subjective: Patient underwent cardiac cath procedure yesterday that showed no obstructive coronary artery disease. No complications. Patient does have mild pain in her right forearm. She has not had any chest pain since last night. Her blood pressure has been better controlled with losartan 50 mg twice a day. PROBLEM LIST: # Hypertension # COPD, mild: Quit smoking in 2011 # Diet-controlled diabetes Exam Vital Signs Vital Sign - Last Date Time Temp Pulse Resp B/P Pulse Ox O2 Delivery O2 Flow Rate FiO2 09/26/16 08:22 36.4 56 18 147/71 96 Room Air Intake and Output 09/25/16 09/25/16 09/26/16 Cumulative From/Thru 14:59 22:59 06:59 09/25/16 09:15 - 09/26/16 06:08 Intake Total 15 ml 650 ml 665 ml Output Total 1400 ml 1400 ml Balance 15 ml -750 ml -735 ml Intake Oral 300 ml 300 ml IV Total 15 ml 350 ml 365 ml Output Urine Total 1400 ml 1400 ml # Bowel Movements 1 1 General appearance: No apparent distress, well-nourished, pleasant, cooperative HEET: Normocephalic atraumatic, no scleral icterus, tongue midline, mucous membranes moist Neck: supple Cardiovascular: RRR, normal S1 and normal S2, no murmurs/ rubs/gallops, PMI nondisplaced, no JVD, no peripheral edema Respiratory: Good aeration, CTAB Abdomen: Soft, nontender, obese, + bowel sounds Neuro: Alert, no facial droop, tongue midline, no gross motor deficits Psych: appropriate affect Lab and Diagnostics Labs Lipids 09/26/2016: Triglycerides 609, total cholesterol 316, LDL 147, HDL 47 Result Diagram: 09/26/165 09/26/16 0125 Assessment & Plan Assessment 65-year-old woman with prior history of smoking, diet controlled diabetes, and hypertension admitted with chest pain: # Chest pain: While the patient had a typical story concerning for coronary artery disease, her angiographically did not reveal any obstructive coronary disease yesterday. Controlling her blood pressure better resolve her chest pain. Chest pain may have been related to hypertension and/or endothelial dysfunction. She does have elevated triglycerides and LDL and I have recommended to her be on a statin therapy for lifelong. Recommendations as below: - Continue aspirin 81 mg every day lifelong - Continue heparin drip - Continue atorvastatin 40 mg daily at bedtime - Continue losartan 50mg bid to keep BP < 130/80 - Patient congratulated on successful smoking cessation. # HTN: well controlled. Meds as above. # Diabetes: diet controlled per patient. - Diabetic diet and defer to primary team for management Thank you for the interesting consultation. Cardiology will sign off at this time. Problems: Pain Evaluation: Adequate Pain Control Resuscitation Status: CPR: Attempt Resuscitation Eagle Hsu MD Sep 26, 2016 11:14
[2016-09-26] MEDS ORDERED: ATOR40TA69 PO (12:41)
[2016-09-26] MEDS ORDERED: LOSA25TA2 PO (12:41)
--- NOTE | 2016-09-26 12:44 | PCM.DIMED ---
Discharge Instructions Date of Service Sep 26, 2016 Dates of Hospitalization Sep 25, 2016 at 11:59 Discharge Diagnosis Discharge Diagnosis chest pain or pressure, HTN, Hyperlipidemia, SHARONDA Diet Discharge Diet: Heart Healthy Activity Discharge Activity: No restrictions Call your provider Call your provider for: Fever or Chills, Shortness of breath, Bleeding, Chest pain, Vomitting, Excessive diarrhea, Weakness (unilateral) Patient Instructions Patient Instructions New medications atorvastatin and losartan are added. Please discontinue lisinopril. Follow-up plan F/U with PCP in ten days Itzel Interiano DO Sep 26, 2016 12:44
[2016-09-26] MEDS ORDERED: 0.9% Sodium Chloride 1,000 ML IV ONE (12:45)
--- NOTE | 2016-09-26 15:30 | NUR ---
MIGUEL explained and signed. Copy of MIGUEL and Medicare self administered medication information given to pt.
--- NOTE | 2016-09-26 18:57 | NUR ---
Discharge Nursing Note: Patient was discharged to home at 1900. Her IV was removed intact , Her Telemetry was discontinued. All of her discharge information was reviewed with her and her questions were answered to her satisfaction. Patient recieved scripts for Atorvastatin and Losartan (forgot to copy for the chart,).Patient is going to have the scripts filled at her pharmacy tomorrow. Tonights dose of Losartan was given to her before discharge. Inessa was escorted to the hospital lobby by nursing staff member and she was driven to home by her . patient was instructed to keep ice on her right arm as needed untill the swelling subsides.
--- NOTE | 2016-09-26 23:40 | PCM.DC.MED ---
Discharge Summary Date of Service Sep 26, 2016 Dates of Hospitalization Date of Hospital Admission Sep 25, 2016 at 11:59 Date of Discharge: Sep 26, 2016 Providers: Admitting Physician: Itzel Mcqueen DO Primary Care Physician: Arturo Bullock MD Attending Physician: Itzel Mcqueen DO Diagnosis at Time of Discharge Diagnosis at Time of Discharge chest pain or pressure, HTN, Hyperlipidemia, SHARONDA Consultations Cardiology Procedures XRay, CTs & MRIs PROCEDURE: X-RAY CHEST ONE VIEW, PORTABLE ([id number]) INDICATIONS: chest pain IMPRESSION: 1. Patchy indistinct opacities in the right lung appear slightly decreased from the prior study. These are nonspecific and may reflect sequelae of recurrent pneumonia but short-term followup is recommended to demonstrate resolution. 2. Findings compatible with COPD redemonstrated. Dictated by: Daquan Cook M.D. on 09/25/2016 at 9:33 Approved by: Daquan Cook M.D. on 09/25/2016 at 9:36 Other Diagnostics Cardiac Cath Report Date of Service Sep 25, 2016 Primary Indication Unstable angina Procedure coronary angiography, left heart cath Vascular Access Right radial artery using 5 Fr sheath, closure with TR band. Diagnostic Catheters Left main: JL3.5 5 Fr after failure to engage with [place] 4.0, 5 Fr RCA: JR4 5Fr after failure to engage with [place] 4.0, 5 Fr Findings 1) Coronary angiography: Right dominance a. Left main is angiographically normal b. LAD is normal caliber and giving rise to a large caliber diagonal artery. Both LAD and diagonal artery have mild luminal irregularities. c. LCx is normal caliber vessel giving rise to two small obtuse marginal (OM ) arteries and a large OM3. The OM1 appears to have ostial disease but it is very small caliber vessel. The LCx and OM3 have mild luminal irregularities. d. RCA is normal caliber with mild luminal irregularities. 2) Left Heart catheterization: a. LVEDP is normal at 15 mmHg. b. No significant transaortic gradient on catheter pull-back. Complications There were no periprocedural complications identified. Summary 1) No obstructive disease in the major epicardial coronary arteries. 2) Hypertension present throughout the study (BP 160s-170s/50s-60s) Recommendations 1) Maximize management of hypertension 2) Continue with primary prevention of coronary artery disease copies to: Arturo Bullock MD, Bhrigu R MD Sep 25, 2016 15:53 Brief History 65-year-old woman with past medical history of smoking, DM 2 (diet controlled), obesity, mild diastolic heart failure grade 2 and hypertension is presenting to the ER with chest pressure. Patient woke up in the middle of the night with chest pain and shortness of breath, went to her doctor's office was given aspirin with chest pressure, pain did not resolve it mitral initially in the ER. Pain is radiating to neck. But later prior to the arriving to the floor her pain has recurred. There is associated nausea but denies vomiting or diarrhea. She has exertional dyspnea. She is seen after she underwent cardiac catheterization by Dr. Simental, she is fairly drowsy and complaints of right arm swelling, she also states that her pain is completely resolved since going to the laborer carpentry dock. She denies dyspnea, headaches but is endorsing fatigue and wanting to sleep. Patient states that she has not taken her a.m. medications prior to coming to the ER. In the ER aspirin and nitroglycerin were given. Patient apparently had an abnormal stress test but the Catheterization was normal in 07/21/12. EKG, troponins, chest x-ray are negative for acute changes. Chest x-ray did show some COPD/nonspecific changes. Off note patient's echocardiogram from 12/19/15 showed 60-65% EF, moderate aortic regurgitation, diastolic. 2 dysfunction. Patient is admitted to the blue team for unstable angina. Hospital Course Chest pain, acute present on admission resolved -- Patient had a heart score of 4, history of hypertension, obesity, hyperlipidemia, CHF, diet controlled diabetes. She had pain in the ER that resolved with nitroglycerin. Due to risk factors, she was put on a heparin drip , cardiology was consulted from the patient went to the laborer carpentry dock, and according to Dr. Simental there were no abnormal findings. Patient's heparin drip was continued on the telemetry floor. -- Discontinue heparin drip pm of 09/25 -- losartan 50 mg BID in stead of lisinopril 5 mg at home . -- She states that she is not well controlled at home, maybe just able to increase her home lisinopril for discharge -- Atorvastati 40 mg QHS, ASA and losartan for d/c per cardiology Swollen R arm, active -- secondary to infiltration of saline flushes during procedure -- Cardiology is aware, icing and tylenol for pain -- We ask that PCP considers an US if pain does not resolve. Hypertension chronic uncontrolled -- Management as above. Hyperlipidemia chronic active -- Lipid panel is ordered, statin is initiated as above COPD chronic active -- Continue when necessary DuoNeb's home medication -- Continue home medication mometasone Diastolic heart failure chronic stable -- Continue metoprolol, lisinopril, we will consider statin Chronic low back pain stable -- She still sedated from her procedure, we will order her oxycodone in the a.m. -- Continue Robaxin when necessary Chronic recurrent UTI stable -- She is not due for her biweekly fosfomycin at this time. Chronic allergies stable -- Continue azelastine montelukast, cetirizine, Flonase home medications CODE STATUS: Full code Alternate decision-maker Patient is admitted for 23 hour observation. Exam Vital Signs (Last) Date Time Temp Pulse Resp B/P Pulse Ox O2 Delivery O2 Flow Rate FiO2 09/26/16 12:30 36.6 63 17 132/65 97 Room Air Exam General: No acute distress, , appears drowsy HEENT: Normocephalic, atraumatic. External ears without defect. Neck: Supple with full range of motion. No jugular venous distension. No bruits. No lymphadenopathy or thyromegaly. Cardiovascular: Regular rate and rhythm with soft systolic murmur Pulmonary: Clear to auscultation bilaterally with no crackles, wheezes, or rhonchi. Normal respiratory effort with no use of accessory muscles. Abdomen: Bowel tones present. Soft, mildly tender diffusely, nondistended. Skin: Normal temperature Neurological: No focal deficits Psychiatric: Normal mood and affect. Alert and oriented to person, place, and time. Ext: Swollen right for arm Test 09/25/16 09:16 09/25/16 13:53 09/26/16 01:25 09/26/16 08:17 D-Dimer < 0.50mg/L FEU (<0.50) Troponin T 0.010ug/L (0.0-0.011) Pro-B-Type Natriuretic Peptide 509.5pg/mL (0-287) Magnesium Level 2.1mg/dL (1.6-2.6) White Blood Count 11.7th/mm3 (3.8-10.1) Red Blood Count 4.48mil/mm3 (3.90-5.20) Hemoglobin 12.5g/dL (12.0-15.6) Hematocrit 39.2% (35.0-46.0) Mean Corpuscular Volume 87.5fL (81-100) Mean Corpuscular Hemoglobin 27.9pg (27.0-35.0) Mean Corpuscular Hemoglobin Concent 31.9% (32.0-37.0) Red Cell Distribution Width 14.1% (12.3-15.4) Platelet Count 271bil/L (150-400) Neutrophils (%) (Auto) 60.9% (40-74) Lymphocytes (%) (Auto) 30.4% (14-46) Monocytes (%) (Auto) 6.4% (4-12) Eosinophils (%) (Auto) 1.5% (0-5) Basophils (%) (Auto) 0.5% (0-3) Sodium Level 141mEq/L (134-144) Potassium Level 4.6mEq/L (3.5-5.2) Chloride Level 105mEq/L (97-108) Carbon Dioxide Level 25mmol/L (18-29) Blood Urea Nitrogen 22mg/dL (8-27) Creatinine 1.26mg/dL (0.57-1.00) Estimat Glomerular Filtration Rate 61mL/min (>59) Glucose Level 114mg/dL (60-99) Calcium Level 9.1mg/dL (8.5-10.1) Total Bilirubin 0.2mg/dL (0.0-1.2) Aspartate Amino Transf (AST/SGOT) 14U/L (0-50) Alanine Aminotransferase (ALT/SGPT) 12U/L (0-32) Alkaline Phosphatase 80U/L (25-165) Total Protein 6.5g/dL (6.4-8.4) Albumin 3.8g/dL (3.4-5.0) Triglycerides Level 609mg/dL (0-149) Cholesterol Level 316mg/dL (100-199) LDL Cholesterol, Calculated 147.200mg/dL (0-99) VLDL Cholesterol 121.800mg/dL HDL Cholesterol 47mg/dL (>39) Cholesterol/HDL Ratio 6.72 (0.0-4.4) Hold [place] Top Tube Received (Received) Activated Partial Thromboplast Time 29.1sec (22.8-33.0) Discharge Medications Discharge Medications Aspirin (Aspirin) 81 Mg Tablet 81 MG PO DAILY (Reported) Atorvastatin Calcium (Atorvastatin Calcium) 40 Mg Tablet 40 MG PO HS Prescribed by: ITZEL MCQUEEN DO Azelastine HCl (Azelastine HCl) 137 Mcg/0.137 Ml [place].pump 2 SPRAY NASAL HS ( Reported) Cetirizine HCl (Zyrtec) 10 Mg Capsule 10 MG PO BID (Reported) Cranberry Conc/C/Bacill Coag (Cranberry Tablet) 1 Each Tablet 1 EACH PO QID ( Reported) Duloxetine (Duloxetine) 30 Mg Capsule.dr 30 MG PO DAILY (Reported) Estradiol (Estrace) 42.5 Gm Cream.appl 1 APPLIC VAGINAL WEEKLY (Reported) Fluticasone Propionate (Fluticasone Propionate Nasal) 16 Gm [place].susp 1 SPRAY NS HS (Reported) Fosfomycin Tromethamine (Monurol) 3 Gm Packet 3 GM PO Q3TWLJS (Reported) L. Rhamnosus GG/Inulin (Culturelle Capsule) 10 Billion Cell-200 Mg Cap.sprink 2 EACH PO MORNING (Reported) L. Rhamnosus GG/Inulin (Culturelle Capsule) 10 Billion Cell-200 Mg Cap.sprink 1 EACH PO HS (Reported) Lactobacillus Combination No.4 (Probiotic) 1 Each Capsule 1 EACH PO QID ( Reported) Losartan Potassium (Cozaar) 25 Mg Tablet 50 MG PO BID Prescribed by: ITZEL MCQUEEN DO Metoprolol Tartrate (Metoprolol Tartrate) 25 Mg Tablet 12.5 MG PO BID (Reported ) Mometasone/Formoterol (Dulera 200 Mcg/5 Mcg Inhaler) 13 Gm Hfa.aer.ad 2 PUFF INHALATION BID (Reported) Montelukast (Singulair) 10 Mg Tablet 10 MG PO HS (Reported) Pantoprazole DR (Pantoprazole DR) 40 Mg Tablet.dr 40 MG PO BID (Reported) Pregabalin (Lyrica) 50 Mg Capsule 50 MG PO BID (Reported) As needed Albuterol HFA (Proair HFA) 8.5 Gm Hfa.aer.ad 2 PUFFS INHALATION Q4H PRN PRN For Shortness of Breath (Reported) Diclofenac Gel (Voltaren Gel) 100 Gm Tube 1 GM TOPICAL QID PRN PRN For Pain ( Reported) Ipratropium [place] (Ipratropium [place] 0.03% Nasal) 30 Ml [place] 2 SPRAY NASAL TID PRN PRN For Congestion (Reported) Ipratropium/Albuterol Sulfate (Iprat-Albut 0.5-3(2.5) mg/3 mL Inhalant Soln) 3 Ml Ampul.neb 3 ML IH Q6 PRN PRN For Shortness of Breath (Reported) Lidocaine HCl (Lidocaine HCl) 5 Ml Jel 1 APPLIC TOPICAL DAILY PRN PRN For Pain ( Reported) apply to feet and lower back Methocarbamol (Methocarbamol) 500 Mg Tablet 1-2 EACH PO BID PRN PRN For Spasm ( Reported) Metoclopramide (Reglan) 5 Mg Tablet 5 MG PO QID PRN PRN For Nausea Prescribed by: KAYLEEN FERNANDEZ DO Nystatin (Nystatin) 1 Each Powder.ea. 1 APPLIC TOP BID PRN PRN For Itching ( Reported) Sumatriptan Succinate (Sumatriptan Succinate) 100 Mg Tablet 100 MG PO BID PRN PRN Headache (Reported) oxyCODONE-Acetaminophen 10-325 mg (oxyCODONE-Acetaminophen 10-325 mg) 1 Each Tablet 1 EACH PO q4-6hr PRN PRN For Pain (Reported) Followup Plan Follow-up plan F/U with PCP in ten days Discharge Diet: Heart Healthy Discharge Activity: No restrictions Patient Instructions New medications atorvastatin and losartan are added. Please discontinue lisinopril. Time spent 35 min Itzel Mcqueen DO Sep 26, 2016 12:46
== END 2016-09-26 19:02 | disposition home or self-care (01) ==
LOC: EDUNIT# 08:56 → EDSEX 08:56 → SED 08:56 → EDBD 08:56 → MPC 11:59
PROVIDERS: ADMIT Family Medicine; ATTEND Family Medicine
DX: R07.9 Chest pain, unspecified (principal); I10 Essential (primary) hypertension; I50.30 Unspecified diastolic (congestive) heart failure; I35.1 Nonrheumatic aortic (valve) insufficiency; E78.5 Hyperlipidemia, unspecified; E11.9 Type 2 diabetes mellitus without complications; J44.9 Chronic obstructive pulmonary disease, unspecified; M79.7 Fibromyalgia; M54.5 Low back pain; G47.33 Obstructive sleep apnea (adult) (pediatric); K21.9 Gastro-esophageal reflux disease without esophagitis; Z79.891 Long term (current) use of opiate analgesic; Z88.8 Allergy status to other drugs, medicaments and biological substances; Z91.018 Allergy to other foods; Z79.82 Long term (current) use of aspirin; Z79.890 Hormone replacement therapy; Z86.69 Personal history of other diseases of the nervous system and sense organs; K58.9 Irritable bowel syndrome, unspecified; Z87.440 Personal history of urinary (tract) infections; Z90.710 Acquired absence of both cervix and uterus; Z87.891 Personal history of nicotine dependence
CPT/HCPCS: 36415; 71010; 80048; 80053; 80061; 82948; 83735; 83880; 84484; 85025; 85378; 85730; 93005; 93458; 94640; 96365; 96375; 96376; 99152; 99153; 99291; C1729; C1769; C1887; C1894; G0378; J0360; J1644; J2250; J2405; J3010; J7030; J7620; Q9967

== ENCOUNTER 2016-10-07 05:01 | Emergency (ER) | payer MEDICARE, MEDICAID ==
[~2016-10-07] VITALS: Ht 157.5 cm; Wt 86.4 kg
[2016-10-07] VITALS (11 sets, daily range): BP systolic 149–245; BP diastolic 46–90; PULSE 55–68; RESP 12–18; O2SAT 95–99
[~2016-10-07 05:01] MED LIST changes: +ATOR40TA69 PO; -LISI10TA PO; +LOSA25TA2 PO
--- NOTE | 2016-10-07 05:13 | ED.REPORT ---
HPI-Chest Pain 40 and Over Date of Service Oct 07, 2016 ED Provider: Diego Mcmahon MD Pt is a 65 year old female with a hx of migraines, COPD, asthma, HTN and hyperlipidemia presenting to the ED complaining of high blood pressure. Associated symptoms include headache, chest discomfort, and diaphoresis. She states that her BP was at 219/80 when she came in. Denies SOB, wheezing, nausea , vomiting, diarrhea, fever or chills. Nursing Notes Stated Complaint: POSSIBLE HIGH BLOOD PRESSURE Chief Complaint: Chest Pain Nursing Notes Reviewed: Yes Allergies: Coded Allergies: Sulfa (Sulfonamide Antibiotics) (Verified Allergy, Severe, Stop breathing , 09/25/16) ciprofloxacin (Verified Allergy, Severe, hives, 09/25/16) Pentazocine Lactate (Verified Allergy, Intermediate, 09/25/16) morphine (Verified Allergy, Intermediate, Shortness of Breath, 09/25/16) [place] Nut (Verified Allergy, Unknown, 08/18/16) NSAIDS (Non-Steroidal Anti-Inflamma (Verified Allergy, Unknown, GI BLEED, 08/18/16) Phenothiazines (Verified Allergy, Unknown, 08/19/16) pt unsure prochlorperazine (Verified Allergy, Unknown, diarrhea, 08/18/16) propoxyphene (Verified Allergy, Unknown, 08/19/16) Pt not sure tree nut (Verified Allergy, Unknown, 08/18/16) Uncoded Allergies: All nuts (Allergy, Severe, 08/19/16) messes w/ breathing Scheduled Aspirin (Aspirin) 81 Mg Tablet 81 MG PO DAILY Atorvastatin Calcium (Atorvastatin Calcium) 40 Mg Tablet 40 MG PO HS Azelastine HCl (Azelastine HCl) 137 Mcg/0.137 Ml [place].pump 2 SPRAY NASAL HS Cetirizine HCl (Zyrtec) 10 Mg Capsule 10 MG PO BID Cranberry Conc/C/Bacill Coag (Cranberry Tablet) 1 Each Tablet 1 EACH PO QID Duloxetine (Duloxetine) 30 Mg Capsule.dr 30 MG PO DAILY Estradiol (Estrace) 42.5 Gm Cream.appl 1 APPLIC VAGINAL WEEKLY Fluticasone Propionate (Fluticasone Propionate Nasal) 16 Gm [place].susp 1 SPRAY NS HS Fosfomycin Tromethamine (Monurol) 3 Gm Packet 3 GM PO [id number] L. Rhamnosus GG/Inulin (Culturelle Capsule) 10 Billion Cell-200 Mg Cap.sprink 2 EACH PO MORNING L. Rhamnosus GG/Inulin (Culturelle Capsule) 10 Billion Cell-200 Mg Cap.sprink 1 EACH PO HS Lactobacillus Combination No.4 (Probiotic) 1 Each Capsule 1 EACH PO QID Losartan Potassium (Cozaar) 25 Mg Tablet 50 MG PO BID Metoprolol Tartrate (Metoprolol Tartrate) 25 Mg Tablet 12.5 MG PO BID Mometasone/Formoterol (Dulera 200 Mcg/5 Mcg Inhaler) 13 Gm Hfa.aer.ad 2 PUFF INHALATION BID Montelukast (Singulair) 10 Mg Tablet 10 MG PO HS Pantoprazole DR (Pantoprazole DR) 40 Mg Tablet.dr 40 MG PO BID Pregabalin (Lyrica) 50 Mg Capsule 50 MG PO BID Scheduled PRN Albuterol HFA (Proair HFA) 8.5 Gm Hfa.aer.ad 2 PUFFS INHALATION Q4H PRN PRN For Shortness of Breath Diclofenac Gel (Voltaren Gel) 100 Gm Tube 1 GM TOPICAL QID PRN PRN For Pain Ipratropium Boles (Ipratropium Boles 0.03% Nasal) 30 Ml [place] 2 SPRAY NASAL TID PRN PRN For Congestion Ipratropium/Albuterol Sulfate (Iprat-Albut 0.5-3(2.5) mg/3 mL Inhalant Soln) 3 Ml [place]mp[place].neb 3 ML IH Q6 PRN PRN For Shortness of Breath Lidocaine HCl (Lidocaine HCl) 5 Ml Jel 1 APPLIC TOPICAL DAILY PRN PRN For Pain apply to feet and lower back Methocarbamol (Methocarbamol) 500 Mg Tablet 1-2 EACH PO BID PRN PRN For Spasm Metoclopramide (Reglan) 5 Mg Tablet 5 MG PO QID PRN PRN For Nausea Nystatin (Nystatin) 1 Each Powder.ea. 1 APPLIC TOP BID PRN PRN For Itching Sumatriptan Succinate (Sumatriptan Succinate) 100 Mg Tablet 100 MG PO BID PRN PRN Headache oxyCODONE-Acetaminophen 10-325 mg (oxyCODONE-Acetaminophen 10-325 mg) 1 Each Tablet 1 EACH PO q4-6hr PRN PRN For Pain General Time Seen by MD: 05:11 Chief Complaint Other (Headache) Hx Obtained From: Patient Arrived By: Walk-in Sudden in Onset?: Yes Onset Occurred: Just prior to arrival Symptom Duration: Since onset Location: : Chest left: Chest right Quality: Painful Severity: Current: Moderate Severity: Maximum: Moderate Recent Healthcare: No recent doctor visit, No recent hospitalization Similar Sx Previous: No Past Medical History Past Medical History Migraines GERD IBS Insomnia Depression Recurrent syncope - w/extensive workup COPD Asthma Chornic low back pain Recurrent UTI on chronic prophylactic abx Polyneuropathy SHARONDA Moderate aoritc insufficiency Mild diastolic dysfunction Recurrent c.diff enterocolitis HTN Lumbar radiculopathy Dysthymic diorder Fundoplication Pseudophakia Hyperlipidemia Patient is allergic to Cipro and Sulfa. Past Surgical History Reports: Appendectomy, Cholecystectomy, Hysterectomy Family History noncontributory Smoking History Former Smoker Social History Other Social History: Good social support, Local resident Ambulatory Status Independent Review of Systems Constitutional: Denies: Chills, Fever Respiratory: Denies: Shortness of breath, Wheezing Cardiovascular: Reports: Chest pain GI: Denies: Diarrhea, Nausea, Vomiting Skin: Reports Diaphoresis Neurologic: Reports: Headache Complete sys rev & neg: except as marked. Physical Exam Initial Vital Signs Vital Signs (First) Date Time Temp Pulse Resp B/P Pulse Ox O2 Delivery O2 Flow Rate FiO2 10/07/16 05:04 37.0 68 14 196/78 96 Room Air Initial VS: Reviewed, Vital signs abnormal Head / Eyes: Atraumatic, Normocephalic, PERRL ENT: Mucous membranes moist, Conjunctiva normal, No scleral icterus Extremities: Vascular intact, Neuro intact, No swelling, No tenderness Neurologic: Alert, Oriented, Nonfocal Psychiatric: Mood/affect normal, Behavior normal, Normal thought content General/Constitutional: Awake, Alert, No acute distress Respiratory / Chest: Atraumatic, Breath sounds NL, Breath sounds = bilat, No respiratory distress Cardiovascular: Heart rate NL, Regular rhythm, Heart sounds NL Abdomen: Atraumatic, Soft, Non-tender Neck: Atraumatic, Supple, No meningismus, No JVD Skin: Warm Diaphoretic Interpretation & Diagnostics Lab Results Interpretation Result Diagram: 10/07/16 0528 Test 10/07/16 05:28 White Blood Count 15.3th/mm3 (3.8-10.1) Red Blood Count 5.00mil/mm3 (3.90-5.20) Hemoglobin 13.7g/dL (12.0-15.6) Hematocrit 42.7% (35.0-46.0) Mean Corpuscular Volume 85.4fL (81-100) Mean Corpuscular Hemoglobin 27.4pg (27.0-35.0) Mean Corpuscular Hemoglobin Concent 32.1% (32.0-37.0) Red Cell Distribution Width 14.9% (12.3-15.4) Platelet Count 394bil/L (150-400) Neutrophils (%) (Auto) 54.0% (40-74) Lymphocytes (%) (Auto) 35.9% (14-46) Monocytes (%) (Auto) 8.6% (4-12) Eosinophils (%) (Auto) 0.5% (0-5) Basophils (%) (Auto) 0.3% (0-3) Hold Wheeler Top Tube Received (Received) Lab Results Interpretation: Elevated white blood count, remainder pending ECG Interpretation ECG Interpretation: Sinus rhythm with a rate of 67 No significant change from previous Time: 05:15 Interpreted by: ED physician Re-Eval/Medical Decision Med Decision/Clinical Course 65-year-old female who presents with diaphoresis, chest pain, and high blood pressure. Workup was initiated. She was given nitroglycerin for her chest pain and blood pressure. Her care is being turned over at change of shift to Dr. Miguel Carcamo. Time of Eval: 06:00 Patient Status: Condition improved Re-Evaluation/Progress Note: Pt care transferred to Dr. Carcamo. Counseled Regarding: Diagnosis, Lab results Discharge & Departure Shift Change Sign-Out Patient Care Transferred: Yes Discussed Complaint(s): Yes Laboratory Evaluation: Ordered, not yet done Imaging Studies: Ordered, not yet done Input from Consult: Care transferred to Dr. Carcamo. Disposition: Home Discharge Condition All VS Reviewed: Yes Condition: Improved Referrals: Arturo Bullock MD (PCP) Care Transferred to: Care transferred to Dr. Carcamo Care Transferred at: 06:00 Scribe Attestation Portions of this note were transcribed by Nita Raphael. I, Dr. Mcmahon personally performed the history, physical exam and medical decision-making; I reviewed and confirmed the accuracy of the information in the transcribed note. Signed by: Jeffrey Mendoza, 10/07/2016. copies to: Arturo Bullock MD, Howard L MD Oct 07, 2016 05:13 NITA RAPHAEL Oct 07, 2016 05:28 Delmi Capone Oct 07, 2016 06:07
[2016-10-07 05:44] LABS: BASOPHILS % (AUTO) 0.3 % (0-3); EOSINOPHILS % (AUTO) 0.5 % (0-5); MONOCYTES % (AUTO) 8.6 % (4-12); Mean Corpuscular Hemoglobin 27.4 pg (27.0-35.0); Mean Corpuscular Volume 85.4 fL (81-100); Platelet Count 394 bil/L (150-400)
[2016-10-07] MEDS ORDERED: Nitroglycerin 2% 1 Gm Ointment TOPICAL ONE (05:50)
[2016-10-07 06:03] LABS: TROPONIN T 0.01 ug/L (0.0-0.011)
[2016-10-07] MEDS ORDERED: HYDROmorphone 0.5 mg/0.5 mL iSecure Syringe IVPUSH ONE ×2 (06:20→10:00)
[2016-10-07] MEDS ORDERED: Labetalol 5 mg/mL 20 mL Inj IVPUSH ONE ×2 (06:20→07:40)
[2016-10-07] MEDS ORDERED: Labetalol 5 mg/mL 20 mL Inj IV ONE (08:10)
[2016-10-07] MEDS ORDERED: Ondansetron 2 mg/mL 2 mL Inj IVPUSH ONE (08:30)
[2016-10-07] MEDS ORDERED: Enalaprilat Inj 2.5 MG in Dextrose 5% 50 ML IV ONE (10:00)
[2016-10-07] MEDS ORDERED: METO25TA6 PO (10:24)
--- NOTE | 2016-10-07 12:21 | DRSVH ---
PROCEDURE: X-RAY CHEST ONE VIEW, PORTABLE ([id number]) INDICATIONS: CHEST PAIN, recent heart cath TECHNIQUE: One view of the chest was acquired. COMPARISON: [facility], CR, XR CHEST 1VW (PORTABLE), 09/25/2016, 9:12. FINDINGS: Surgical changes and devices: None. Lungs and pleura: No pleural effusions or pneumothorax. Lungs are clear. Mediastinum: Mediastinal contours appear normal. Heart size is normal. Bones and chest wall: No suspicious bony lesions. Overlying soft tissues appear unremarkable. IMPRESSION: No acute cardiopulmonary disease. Dictated by: Cameron Reyes [facility] Interpreted: Alonso Durán MD on 10/07/2016 at 9:10 Approved by: Alonso Durán M.D. on 10/07/2016 at 12:19
== END 2016-10-07 11:57 | disposition home or self-care (01) ==
LOC: SED 05:01
DX: I10 Essential (primary) hypertension (principal); R51 Headache; R07.89 Other chest pain; F32.9 Major depressive disorder, single episode, unspecified; K21.9 Gastro-esophageal reflux disease without esophagitis; G43.909 Migraine, unspecified, not intractable, without status migrainosus; E78.5 Hyperlipidemia, unspecified; J44.9 Chronic obstructive pulmonary disease, unspecified; Z79.82 Long term (current) use of aspirin; Z87.891 Personal history of nicotine dependence; Z88.1 Allergy status to other antibiotic agents; Z88.5 Allergy status to narcotic agent; Z88.6 Allergy status to analgesic agent; Z88.8 Allergy status to other drugs, medicaments and biological substances
CPT/HCPCS: 36415; 71010; 80053; 83735; 84484; 85025; 85378; 93005; 96365; 96375; 96376; 99285; J1170; J2405